=== PATIENT | female | born 1985 ===

== ENCOUNTER 2021-06-03 11:22 | Emergency (ER) | payer MEDICAID, SELFPAY ==
--- NOTE | ~2021-06-03 | US_ITS ---
EXAMINATION: US PELVIS CLINICAL INFORMATION: Left lower quadrant and left flank pain. Question ovarian torsion. COMPARISON: None TECHNIQUE: Ultrasound of the pelvis is performed using both transabdominal and transvaginal transducers along with Doppler. Transvaginal imaging is performed due to inadequate visualization transabdominally. FINDINGS: Uterus: The uterus is anteverted and measures 9.7 x 4.7 x 5.5 cm. The double wall endometrial thickness is 15 mm. The uterus is smooth in contour and has normal myometrial echogenicity. No visible fibroid. Adnexa: Both ovaries are visualized. There is normal color flow to the adnexa. There is no ovarian torsion. There is a small amount of free fluid present in the pelvis. Right ovary measures 3.7 x 3.5 x 3.9 cm. Volume of 26.4 mL. There is a heterogeneous complex lesion seen within the right ovary measuring approximately 3.0 x 2.6 x 3.6 cm in size which is well-circumscribed with small amount of adjacent fluid and has increased through sound transmission. Question if this may represent a hemorrhagic cyst/hematoma. Left ovary measures 4.2 x 2.3 x 3.3 cm. Volume of 16.7 mL. There is a 1.8 x 2.4 x 2.1 cm hypoechoic structure with some internal echoes and increased through sound transmission with the appearance of a corpus luteal cyst. US/US pelvic and transvaginal IMPRESSION: No evidence of ovarian torsion. Question hemorrhagic right ovarian cyst. Left ovarian corpus luteal cyst. Follow-up study in 6 weeks could be considered.
--- NOTE | ~2021-06-03 | US_ITS ---
EXAMINATION: US PELVIS CLINICAL INFORMATION: Left lower quadrant and left flank pain. Question ovarian torsion. COMPARISON: None TECHNIQUE: Ultrasound of the pelvis is performed using both transabdominal and transvaginal transducers along with Doppler. Transvaginal imaging is performed due to inadequate visualization transabdominally. FINDINGS: Uterus: The uterus is anteverted and measures 9.7 x 4.7 x 5.5 cm. The double wall endometrial thickness is 15 mm. The uterus is smooth in contour and has normal myometrial echogenicity. No visible fibroid. Adnexa: Both ovaries are visualized. There is normal color flow to the adnexa. There is no ovarian torsion. There is a small amount of free fluid present in the pelvis. Right ovary measures 3.7 x 3.5 x 3.9 cm. Volume of 26.4 mL. There is a heterogeneous complex lesion seen within the right ovary measuring approximately 3.0 x 2.6 x 3.6 cm in size which is well-circumscribed with small amount of adjacent fluid and has increased through sound transmission. Question if this may represent a hemorrhagic cyst/hematoma. Left ovary measures 4.2 x 2.3 x 3.3 cm. Volume of 16.7 mL. There is a 1.8 x 2.4 x 2.1 cm hypoechoic structure with some internal echoes and increased through sound transmission with the appearance of a corpus luteal cyst. US/US pelvic ovarian doppler IMPRESSION: No evidence of ovarian torsion. Question hemorrhagic right ovarian cyst. Left ovarian corpus luteal cyst. Follow-up study in 6 weeks could be considered.
--- NOTE | ~2021-06-03 | CT_ITS ---
EXAMINATION: CT ABDOMEN AND PELVIS WITH CONTRAST CLINICAL INFORMATION: Left flank pain. Left lower quadrant pain COMPARISON: Pelvic ultrasound 06/03/2021 TECHNIQUE: Multidetector volumetric images were obtained from the superior aspect of the liver through the pubic symphysis following administration 85 mL of Omnipaque 350 intravenous contrast. Sagittal and coronal reformatted images were obtained on the technologist's workstation. Oral contrast: No This CT examination was performed using dose optimization techniques as appropriate, variously including the following: *Automated exposure control *Adjustment of mA and/or kV according to patient size (this includes techniques or standardized protocols for targeted exams where dose is matched to indication/reason for exam; i.e. extremities or head) *Use of iterative reconstruction technique DLP: 802 mGy-cm FINDINGS: LUNG BASES: The visualized lung bases are unremarkable. LIVER, GALLBLADDER, AND BILIARY TREE: The liver is normal in size, shape, and attenuation. No focal hepatic lesion or biliary ductal dilatation is present. The gallbladder is unremarkable with no evidence of radiopaque gallstones, gallbladder wall thickening, or obvious pericholecystic inflammatory changes. PANCREAS: Unremarkable. SPLEEN: Unremarkable. ADRENAL GLANDS: Unremarkable. KIDNEYS AND URETERS: Left kidney: There is marked hydronephrosis of left kidney with distention renal pelvis calyces and the proximal ureter. There is an obstructing stone in the proximal left ureter. Stone measures 8 x 7 mm. Density 1415 Hounsfield units. There are 2 adjacent stones measuring 2 to 3 mm in the lower pole of left kidney as well. There is mild cortical thinning of left kidney. There is however normal enhancement of the kidney. Right kidney: Normal right kidney. Normal cortical thickness and enhancement. There is no renal or ureteral calculus. There is no hydronephrosis. BLADDER: Unremarkable. GASTROINTESTINAL TRACT: The small and large bowel are unremarkable. The appendix is unremarkable. ABDOMINAL WALL: No significant hernia is appreciated. LYMPH NODES: Normal. VASCULAR: Unremarkable. PELVIC VISCERA: Uterus is anteverted. There is a dermoid in the right ovary. This is primarily made of fat with a small volume of soft tissue component with no calcification. This measures 3 x 1.8 x 1.8 cm. This correlates to the complex lesion seen on the pelvic ultrasound exam 06/03/2021. The left ovary there is a rim-enhancing corpus luteum cyst measuring 2 cm. No fluid in the cul-de-sac. OSSEOUS STRUCTURES: Unremarkable. CT/CT abdomen pelvis w con IMPRESSION: 1. Marked hydronephrosis of left kidney. Obstructing 7 x 8 mm stone in the proximal left ureter. 2 small nonobstructive stones lower pole left kidney. 2. Right adnexal dermoid. Fleischner guidelines were followed.
[2021-06-03 11:26] VITALS: BP 129/67; PULSE 78; RESP 18; TEMP 37.1; O2SAT 98; BMI 28.3
[2021-06-03 12:30] LABS: Appearance Urine CLOUDY; Color Urine YELLOW; Glucose Urine UA NEG (NEG); Leukocyte Esterase Urine NEG (NEG); Nitrite Urine NEG (NEG); Specific Gravity - Urine 1.015 (1.005-1.025); UACC Culture Trigger NO; Urine Blood TRACE (NEG); Urine Ketones NEG (NEG); Urine Protein TRACE MG/DL (NEG-TRACE)
[2021-06-03 12:31] LABS: UPreg QC Valid YES; Urine Pregnancy NEGATIVE (NEGATIVE)
[2021-06-03 12:40] LABS: Amorphous Sediment Urine 4+ /LPF; Bacteria Urine TRACE /LPF; Squamous Epithelial Cell Urine TRACE /LPF
--- NOTE | 2021-06-03 12:57 | ED.ABDPAIN ---
HPI - Abdominal Pain General Chief Complaint: Urogenital-Female Stated Complaint: FLANK PAIN L SIDE Time Seen by Provider: 06/03/21 11:59 Source: patient and family Mode of arrival: ambulatory Limitations: no limitations History of Present Illness HPI narrative: 36-year-old female with a past medical history of right ovarian cyst presenting to the ED with complaints of left lower quadrant/left flank pain radiating to her left back over the past few months that has been intermittent worse today. She reports associated constipation. She reports last time she had a bowel movement was approximately 2 days. She reports that she was seen at [facility] a few months ago and had a transvaginal ultrasound which was within normal limits and they told her that she did not have any cyst at that time. Patient reports that she had her period approximately 2 weeks ago. She denies any fevers, chills, dizziness, headaches, neck pain/stiffness, trouble swallowing or breathing, sore throat, cough, rashes, dysuria, hematuria, abnormal vaginal discharge, thoughts of STDs, diarrhea or any other symptoms complaints or concerns at this time. She denies recent travel or sick contacts. MD elicited complaint: abdominal pain Pertinent past history: other (ovarian cyst) Onset (ago): month(s) Pain Consistency: intermittent Location: LLQ and L flank Severity: moderate Quality: cramping and aching Radiation: back (left sided) Relieving factors: nothing Associated symptoms: constipation Related Data Previous Rx's Medication Instructions Recorded ketorolac 10 mg tablet 10 mg PO Q8H PRN #14 tab 06/03/21 ondansetron 4 mg disintegrating 4 mg PO Q6H #14 tab 06/03/21 tablet oxycodone 5 mg tablet 5 mg PO Q6H PRN #14 tab 06/03/21 prednisone 20 mg tablet 40 mg PO DAILY 5 Days #10 tab 06/03/21 prednisone 20 mg tablet 40 mg PO DAILY 5 Days #10 tab 06/03/21 tamsulosin 0.4 mg capsule (Flomax) 0.4 mg PO DAILY 5 Days #5 cap 06/03/21 Allergies Allergy/AdvReac Type Severity Reaction Status Date / Time No Known Allergies Allergy Verified 06/03/21 12:00 Review of Systems Review of Systems Constitutional : No Fever, No Chills, No Night Sweats, No Fatigue, No Malaise Cardiovascular : No Chest Pain, No SOB Respiratory : No Cough, No Sputum, No Wheezing, No Dyspnea Gastrointestinal : No Nausea, No Vomiting, No Diarrhea, + abdominal Pain, No Hematochezia, No Melena Genitourinary : No irregular bleeding, No Dysuria, No Urinary Frequency, No Hematuria,No Urinary Incontinence, No Urgency, No Flank Pain Musculoskeletal : No joint pain, No Myalgias, No Joint Swelling Skin : No Skin Lesions, No rash Neuro : No Weakness, No Numbness, No Paresthesias, No Loss of Consciousness, No Dizziness, No Headache Heme/Lymph: No Lymphadenopathy Endocrine : No Temperature Intolerance Yes all other systems are reviewed and are negative [facility] Past Medical History Attestation statement: The following information was validated with the patient. Medical History Hernandez's palsy Social History Social History Advance Directives: No Advance Directives Information Provided: Yes Patient : No Physical Exam ED Vital Signs: Vital Signs - 24 hr 06/03/21 11:26 06/03/21 15:04 Temperature 98.7 F Pulse Rate 78 69 Respiratory Rate 18 18 Blood Pressure 129/67 104/53 L Pulse Oximetry 98 100 BMI result Body Mass Index 28.3 Vital signs have been reviewed and all within normal limits Appearance: Alert. Oriented X3. No acute distress. Head: Normal external exam. Normocephalic. Eyes: PERRLA. EOMI. Conjunctiva and sclera normal. Eyelids normal. ENT: Pharynx normal. Uvula midline. Moist mucous membranes. No trismus noted. No drooling noted. No muffled voice noted. Neck: Normal inspection. Neck supple. FROM. No adenopathy. No meningeal signs. CVS: Normal heart rate and rhythm. Heart sound normal. No murmurs noted. Pulses normal throughout. Respiratory: No respiratory distress. Painless inspiration. Breath sounds normal. No wheezes/rales/rhonchi noted. Chest nontender. No accessory muscle usage noted or decreased air movement noted. Abdomen: Soft moderate tenderness palpation to the left lower quadrant/left flank/left lower back. With guarding. Nondistended. No rigidity. Bowel sounds normal in all 4 quadrants. No distention noted. No organomegaly noted. No visible injury noted. No rebound tenderness. Negative Rovsing sign. Negative obturator's sign. Negative psoas sign. Negative Clark sign. Back: No CVA tenderness. Full range of motion noted. Skin: Skin warm and dry. Normal skin color. Normal skin turgor. No rashes/lesions/lacerations noted. Extremities: Extremities exhibit normal range of motion. Extremities nontender. Neuro: Oriented X 3. No motor deficit. No sensory deficit. Reflexes normal. Normal steady gait. CN's II-XII intact bilaterally? Course Course Course Narrative: 12pm - 36-year-old female with a past medical history of right ovarian cyst presenting to the ED with complaints of left lower quadrant/left flank pain radiating to her left back over the past few months that has been intermittent worse today. She reports associated constipation. She reports last time she had a bowel movement was approximately 2 days. She reports that she was seen at [facility] a few months ago and had a transvaginal ultrasound which was within normal limits and they told her that she did not have any cyst at that time. Patient reports that she had her period approximately 2 weeks ago. Plan: Labs, UA, UHCG, CT scan abdomen and pelvis, transvaginal/pelvic ultrasound. Provide a L of IV fluids with 4 mg of Zofran and 30 mg of IV Toradol then re-evaluate. Reevaluation(s) Reevaluation #1: - labs return patient mild anemia with an H&H of 11.4/36.4. Otherwise all other labs are within normal limits. UA within normal limits no evidence of UTI. UHCG negative for . Patient negative for COVID. - pelvic/transvaginal ultrasound was negative for ovarian torsion although questioning hemorrhagic right ovarian cyst and left ovarian corpus luteal cyst. They recommend follow-up study in 6 weeks. Otherwise no other acute processes were noted - CT scan of abdomen and pelvis with IV contrast revealed a 8 mm stone at the proximal left ureter and 2 small obstructing stones and the lower pole of the left kidney and marked hydronephrosis of the left kidney. She also has a right adnexa dermoid otherwise no other acute processes were noted. - therefore I discussed this case with Dr. Mata and Dr. De La Torre screener and blender operator and the urologist and Dr. Mata E reports that the patient can follow-up with him as an outpatient basis. Nothing to do at this time for the ovarian cyst. And Dr. De La Torre the urologist recommended discharging the patient with pain control if her pain is controlled. Therefore I discussed this with the patient she reports her pain is controlled she has not had any nausea vomiting today was last night therefore will DC home with symptomatic treatment and instructions to follow-up with Dr. Wagner to call him on Saturday and to return if any new or worsening symptoms. Patient's significant other understand and agrees with this plan. Time: 15:31 MDM - Abdominal Pain Medical Records Attestation: I reviewed the patient's medical records. Lab Data Attestation: I reviewed the patient's lab results. Result diagrams: 06/03/21 13:47 06/03/21 13:47 Labs: Lab Results 06/03/21 06/03/21 06/03/21 Range/Units 12:13 12:13 13:47 WBC 7.7 (4.8-10.8) X10*3/uL RBC 4.32 (4.20-5.50) X10*6/uL Hgb 11.4 L (12.0-16.0) g/dl Hct 36.4 L (37.0-47.0) % MCV 84.3 (80.0-98.0) fL MCH 26.4 L (27.0-33.0) pg MCHC 31.3 (31.0-35.0) g/dl RDW 15.1 (11.0-16.0) % Plt Count 283 (160-400) X10*3/uL MPV 10.7 (9.4-12.3) fL Immature Gran % (Auto) 0.1 (0.0-0.4) % Neut % (Auto) 45.9 (45-73) % Lymph % (Auto) 35.4 (20-40) % [place] % (Auto) 8.8 (2-11) % Eos % (Auto) 9.2 H (0-4) % Baso % (Auto) 0.6 (0-2) % Lymph # (Auto) 2.7 (1.2-4.9) X10*3/uL [place] # (Auto) 0.7 (0.1-1.2) X10*3/uL Eos # (Auto) 0.7 H (0.0-0.4) X10*3/uL Baso # (Auto) 0.1 (0.0-0.2) X10*3/uL Abs Immat Gran (auto) 0.01 (0.00-0.03) X10*3/uL Absolute Neuts (auto) 3.5 (2.0-8.3) x10*3/uL Absolute Nucleated RBC 0.000 (0.0-0.012) X10*3/uL Nucleated RBC % (auto) 0.0 (0.0-0.2) /100WBC PT (9.9-13.0) SEC INR (0.9-1.1) Sodium (135-145) mmol/L Potassium (3.3-5.1) mmol/L Chloride (96-108) mmol/L Carbon Dioxide (22-29) mmol/L Anion Gap (12-20) BUN (9-16) mg/dL Creatinine (0.5-1.4) mg/dL Estim Creat Clear Calc Estimated GFR Random Glucose (60-115) mg/dL Calcium (8.4-10.2) mg/dL Magnesium (1.6-2.6) mg/dL Total Bilirubin (0.0-1.0) mg/dL AST (5-31) U/L ALT (0-31) U/L Alkaline Phosphatase (39-117) U/L Total Protein (6.5-8.0) g/dL Albumin (3.5-5.0) g/dL Beta HCG, Quant mIU/mL Urine Color YELLOW Urine Appearance CLOUDY Urine pH 7.0 (5.0-8.0) Ur Specific [place] 1.015 (1.005-1.025) Urine Protein TRACE (NEG-TRACE) MG/DL Urine Glucose (UA) NEG (NEG) MG/DL Urine Ketones NEG (NEG) MG/DL Urine Blood TRACE (NEG) Urine Nitrite NEG (NEG) Ur Leukocyte Esterase NEG (NEG) Urine RBC 1-4 (0) /HPF Urine WBC 1-4 (0-4) /HPF Ur Squamous Epith Cells TRACE /LPF Amorphous Sediment 4+ /LPF Urine Bacteria TRACE /LPF Urine Test NEGATIVE (NEGATIVE) COVID-19 (ANNETTE) (Negative) COVID-19 Clin Com 06/03/21 06/03/21 06/03/21 Range/Units 13:47 13:47 13:47 WBC (4.8-10.8) X10*3/uL RBC (4.20-5.50) X10*6/uL Hgb (12.0-16.0) g/dl Hct (37.0-47.0) % MCV (80.0-98.0) fL MCH (27.0-33.0) pg MCHC (31.0-35.0) g/dl RDW (11.0-16.0) % Plt Count (160-400) X10*3/uL MPV (9.4-12.3) fL Immature Gran % (Auto) (0.0-0.4) % Neut % (Auto) (45-73) % Lymph % (Auto) (20-40) % [place] % (Auto) (2-11) % Eos % (Auto) (0-4) % Baso % (Auto) (0-2) % Lymph # (Auto) (1.2-4.9) X10*3/uL [place] # (Auto) (0.1-1.2) X10*3/uL Eos # (Auto) (0.0-0.4) X10*3/uL Baso # (Auto) (0.0-0.2) X10*3/uL Abs Immat Gran (auto) (0.00-0.03) X10*3/uL Absolute Neuts (auto) (2.0-8.3) x10*3/uL Absolute Nucleated RBC (0.0-0.012) X10*3/uL Nucleated RBC % (auto) (0.0-0.2) /100WBC PT 12.9 (9.9-13.0) SEC INR 1.1 (0.9-1.1) Sodium 140 (135-145) mmol/L Potassium 4.2 (3.3-5.1) mmol/L Chloride 107 (96-108) mmol/L Carbon Dioxide 25 (22-29) mmol/L Anion Gap 12 (12-20) BUN 14 (9-16) mg/dL Creatinine 0.81 (0.5-1.4) mg/dL Estim Creat Clear Calc 92.5 Estimated GFR > 60 Random Glucose 90 (60-115) mg/dL Calcium 9.1 (8.4-10.2) mg/dL Magnesium 1.9 (1.6-2.6) mg/dL Total Bilirubin 0.5 (0.0-1.0) mg/dL AST 18 (5-31) U/L ALT 16 (0-31) U/L Alkaline Phosphatase 91 (39-117) U/L Total Protein 6.7 (6.5-8.0) g/dL Albumin 3.8 (3.5-5.0) g/dL Beta HCG, Quant < 2 mIU/mL Urine Color Urine Appearance Urine pH (5.0-8.0) Ur Specific [place] (1.005-1.025) Urine Protein (NEG-TRACE) MG/DL Urine Glucose (UA) (NEG) MG/DL Urine Ketones (NEG) MG/DL Urine Blood (NEG) Urine Nitrite (NEG) Ur Leukocyte Esterase (NEG) Urine RBC (0) /HPF Urine WBC (0-4) /HPF Ur Squamous Epith Cells /LPF Amorphous Sediment /LPF Urine Bacteria /LPF Urine Test (NEGATIVE) COVID-19 (ANNETTE) Negative (Negative) COVID-19 Clin Com See Note Imaging Data CT scan abdomen pelvis with IV contrast: Attestation: I personally reviewed and interpreted this imaging study as follows: Radiologist's impression: FINDINGS: LUNG BASES: The visualized lung bases are unremarkable.? LIVER, GALLBLADDER, AND BILIARY TREE: The liver is normal in size, shape, and attenuation. No focal hepatic lesion or biliary ductal dilatation is present. The gallbladder is unremarkable with no evidence of radiopaque gallstones, gallbladder wall thickening, or obvious pericholecystic inflammatory changes.? PANCREAS: Unremarkable.? SPLEEN: Unremarkable.? ADRENAL GLANDS: Unremarkable.? KIDNEYS AND URETERS: Left kidney: There is marked hydronephrosis of left kidney with distention renal pelvis calyces and the proximal ureter. There is an obstructing stone in the proximal left ureter. Stone measures 8 x 7 mm. Density 1415 Hounsfield units. There are 2 adjacent stones measuring 2 to 3 mm in the lower pole of left kidney as well. There is mild cortical thinning of left kidney. There is however normal enhancement of the kidney. Right kidney: Normal right kidney. Normal cortical thickness and enhancement. There is no renal or ureteral calculus. There is no hydronephrosis. BLADDER: Unremarkable.? GASTROINTESTINAL TRACT: The small and large bowel are unremarkable. The appendix is unremarkable.? ABDOMINAL WALL: No significant hernia is appreciated.? LYMPH NODES: Normal. VASCULAR: Unremarkable. PELVIC VISCERA: Uterus is anteverted. There is a dermoid in the right ovary. This is primarily made of fat with a small volume of soft tissue component with no calcification. This measures 3 x 1.8 x 1.8 cm. This correlates to the complex lesion seen on the pelvic ultrasound exam 06/03/2021. The left ovary there is a rim-enhancing corpus luteum cyst measuring 2 cm. No fluid in the cul-de-sac. OSSEOUS STRUCTURES: Unremarkable.? CT/CT abdomen pelvis w con IMPRESSION: ? 1. Marked hydronephrosis of left kidney. Obstructing 7 x 8 mm stone in the proximal left ureter. 2 small nonobstructive stones lower pole left kidney. 2. Right adnexal dermoid. ? Fleischner guidelines were followed. Transvaginal/pelvic ultrasound: Attestation: I personally reviewed and interpreted this imaging study as follows: Radiologist's impression: FINDINGS: Uterus: The uterus is anteverted and measures 9.7 x 4.7 x 5.5 cm. The double wall endometrial thickness is 15 mm.? The uterus is smooth in contour and has normal myometrial echogenicity. ? No visible fibroid. Adnexa: Both ovaries are visualized. There is normal color flow to the adnexa. There is no ovarian torsion.? There is a small amount of free fluid present in the pelvis. Right ovary measures 3.7 x 3.5 x 3.9 cm. Volume of 26.4 mL. There is a heterogeneous complex lesion seen within the right ovary measuring approximately 3.0 x 2.6 x 3.6 cm in size which is well-circumscribed with small amount of adjacent fluid and has increased through sound transmission. Question if this may represent a hemorrhagic cyst/hematoma. Left ovary measures 4.2 x 2.3 x 3.3 cm. Volume of 16.7 mL. There is a 1.8 x 2.4 x 2.1 cm hypoechoic structure with some internal echoes and increased through sound transmission with the appearance of a corpus luteal cyst. US/US pelvic and transvaginal IMPRESSION: No evidence of ovarian torsion. ? Question hemorrhagic right ovarian cyst. ? Left ovarian corpus luteal cyst. ? Follow-up study in 6 weeks could be considered. Critical Care Time Critical Care Time Critical Care Time: Yes Total Critical Care Time: 60 Attestation: I personally attest to this time spent taking care of the patient Discharge Plan Discharge Clinical Impression: Hemorrhagic cyst of right ovary, Luteal cystic ovary disease, Ureterolithiasis, Hydronephrosis Patient Disposition: Home, Self-Care Instructions: Ovarian Cyst (ED), Hydronephrosis (ED), Ureteral Stones (ED), Ruptured Ovarian Cyst (ED) Prescriptions: New ketorolac 10 mg tablet 10 mg PO Q8H PRN (Reason: pain) Qty: 14 0RF Rx Instructions: Given 1st dose in the ED ondansetron 4 mg tablet,disintegrating 4 mg PO Q6H Qty: 14 0RF prednisone 20 mg tablet 40 mg PO DAILY 5 Days Qty: 10 0RF oxycodone 5 mg tablet 5 mg PO Q6H PRN (Reason: pain) Qty: 14 0RF tamsulosin [Flomax] 0.4 mg capsule 0.4 mg PO DAILY 5 Days Qty: 5 0RF prednisone 20 mg tablet 40 mg PO DAILY 5 Days Qty: 10 0RF Referrals: Yonis Wagner MD [Physician] - 2 days Keisha Fairbanks RN [Emergency Nurse] - 2 days Stevie Mata MD [Physician] - 2 days Stand Alone Forms: Work/School Release Print Language: Malagasy
[2021-06-03] MEDS: ondansetron HCL 4 MG/2 ML VIAL IVPUSH (13:40)
[2021-06-03] MEDS: Ketorolac Tromethamine 30 MG/ML VIAL IVPUSH (13:40)
[2021-06-03] MEDS: 0.9 % Sodium Chloride 1,000 ML 999 ML IVCONT (13:40)
[2021-06-03 13:53] LABS: Basophils Absolute Auto 0.1 X10*3/uL (0.0-0.2); Basophils Percent Auto 0.6 % (0-2); Eosinophils Absolute Auto 0.7 X10*3/uL (0.0-0.4); Eosinophils Percent Auto 9.2 % (0-4); Hematocrit 36.4 % (37.0-47.0); Hemoglobin 11.4 g/dl (12.0-16.0); Imm Gran Abs Auto 0.01 X10*3/uL (0.00-0.03); Imm Gran Pct Auto 0.1 % (0.0-0.4); Lymphocytes Absolute Auto 2.7 X10*3/uL (1.2-4.9); Lymphocytes Percent Auto 35.4 % (20-40); MANUAL DIFF FLAG NO; Mean Corpuscular HGB Conc 31.3 g/dl (31.0-35.0); Mean Corpuscular Hemoglobin 26.4 pg (27.0-33.0); Mean Corpuscular Volume 84.3 fL (80.0-98.0); Mean Platelet Volume 10.7 fL (9.4-12.3); Monocytes Absolute Auto 0.7 X10*3/uL (0.1-1.2); Monocytes Percent Auto 8.8 % (2-11); Neutrophils Absolute Auto 3.5 x10*3/uL (2.0-8.3); Neutrophils Percent Auto 45.9 % (45-73); Platelet Count 283 X10*3/uL (160-400); Red Blood Count 4.32 X10*6/uL (4.20-5.50); Red Cell Distribution Width 15.1 % (11.0-16.0); White Blood Count 7.7 X10*3/uL (4.8-10.8)
[2021-06-03 13:58] LABS: INTERNATIONAL NORM RATIO 1.1 (0.9-1.1); Prothrombin Time 12.9 SEC (9.9-13.0)
[2021-06-03 14:07] LABS: COVID-19 Test Negative (Negative); IDNOW Serial# 16C4AD1C
[2021-06-03 14:08] LABS: Alanine Aminotransferase 16 U/L (0-31); Albumin Level 3.8 g/dL (3.5-5.0); Alkaline Phosphatase 91 U/L (39-117); Anion Gap 12 (12-20); Aspartate Amino Transferase 18 U/L (5-31); Bilirubin Total 0.5 mg/dL (0.0-1.0); Blood Urea Nitrogen 14 mg/dL (9-16); Calcium 9.1 mg/dL (8.4-10.2); Carbon Dioxide 25 mmol/L (22-29); Chloride 107 mmol/L (96-108); Creatinine Clr Calc Pharmacy 92.5; Estimated Glomerular Filt Rate > 60; Glucose Random 90 mg/dL (60-115); Magnesium 1.9 mg/dL (1.6-2.6); Potassium 4.2 mmol/L (3.3-5.1); Sodium 140 mmol/L (135-145); Total Protein 6.7 g/dL (6.5-8.0)
[2021-06-03 14:15] LABS: HCG Quantitative < 2 mIU/mL
[2021-06-03] MEDS: iohexoL 350 MG/ML 100 ML INFUS..BTL IV (14:46)
[2021-06-03 15:04] VITALS: BP 104/53; PULSE 69; RESP 18; O2SAT 100
--- NOTE | 2021-06-03 15:32 | PM.GYNCN ---
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 The patient states that she was seen at [facility] a few months ago and had a pelvic ultrasound which was within normal, according to her. Patient's LMP was 2 weeks ago.? No history of fevers, chills, or any other complaints. No associated GI or symptoms no vaginal discharge or abnormal uterine bleeding. Pap done emergency room included CBC, chemistry, urine test, was all negative pelvic ultrasound showed a right 3 cm complex ovarian cyst suspicious of hemorrhagic cyst and left corpus luteum cyst. CT scan of abdomen and pelvis with IV contrast revealed a 8 mm stone at the proximal left ureter and 2 small obstructing stones and the lower pole of the left kidney and marked hydronephrosis of the left kidney.? She also has a right adnexa dermoid otherwise no other acute processes were noted. 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 - Review of Systems Review of Systems ROS Unobtainable: All systems reviewed & are unremarkable except as noted in HPI and below Cardiovascular: Denies Palpatations, Loss of consciousness or Chest pain Respiratory: Denies Cough, Wheezing or Shortness of breath Musculoskeletal: Denies Low back pain Gastrointestinal: Denies Heartburn, Constipation, Diarrhea, Nausea or Vomiting Genitourinary: Denies Pain with urination, Burning with urination or Urinary frequency Neurological: Denies Migranes Psychological: Denies Depression [facility] Past Medical History Medical History Hernandez's palsy Social History Social History Advance Directives: No Advance Directives Information Provided: Yes Patient : No Meds Allergies Allergy/AdvReac Type Severity Reaction Status Date / Time No Known Allergies Allergy Verified 06/03/21 12:00 JAVA J[employer]EE APPLICATION DEVELOPER Physical Exam Vitals Vital signs: Temp Pulse Resp BP Pulse Ox 98.7 F 69 18 104/53 L 100 06/03/21 11:26 06/03/21 15:04 06/03/21 15:04 06/03/21 15:04 06/03/21 15:04 BMI result Body Mass Index 28.3 Constitutional General Appearance: Healthy appearing, Well-nourished and Well-developed Psychiatric Mood and Affect: active and alert, normal mood and normal affect Skin Appearance: No rashes and No lesions Lungs Respiratory Effort: No intercostal retractions Auscultation: Clear to auscultation Cardiovascular Auscultation: RRR Female Genitalia (Pelvic) Exam: Deferred Additional Comments: Reported by ASTRID Cordoba in the emergency room to be benign JAVA J[employer]EE APPLICATION DEVELOPER - Results Labs CBC & Chem 7: 06/03/21 13:47 06/03/21 13:47 Labs: Short CBC 06/03/21 Range/Units 13:47 WBC 7.7 (4.8-10.8) X10*3/uL Hgb 11.4 L (12.0-16.0) g/dl Hct 36.4 L (37.0-47.0) % Plt Count 283 (160-400) X10*3/uL BMP 06/03/21 13:47 Sodium 140 Potassium 4.2 Chloride 107 Carbon Dioxide 25 BUN 14 Creatinine 0.81 Calcium 9.1 Liver Function 06/03/21 Range/Units 13:47 Total Bilirubin 0.5 (0.0-1.0) mg/dL AST 18 (5-31) U/L ALT 16 (0-31) U/L Alkaline Phosphatase 91 (39-117) U/L Albumin 3.8 (3.5-5.0) g/dL Urine 06/03/21 06/03/21 Range/Units 12:13 12:13 Urine Color YELLOW Urine Appearance CLOUDY Urine pH 7.0 (5.0-8.0) Ur Specific [place] 1.015 (1.005-1.025) Urine Protein TRACE (NEG-TRACE) MG/DL Urine Glucose (UA) NEG (NEG) MG/DL Urine Test NEGATIVE (NEGATIVE) Imaging CT scan - pelvis: Radiologist's impression: ITS Impressions Doppler Study Ultrasound 06/03/21 12:53 IMPRESSION: No evidence of ovarian torsion. Question hemorrhagic right ovarian cyst. Left ovarian corpus luteal cyst. Follow-up study in 6 weeks could be considered. Pelvic/Transvag US 06/03/21 12:53 IMPRESSION: No evidence of ovarian torsion. Question hemorrhagic right ovarian cyst. Left ovarian corpus luteal cyst. Follow-up study in 6 weeks could be considered. Abdomen/Pelvis CT 06/03/21 14:48 IMPRESSION: 1. Marked hydronephrosis of left kidney. Obstructing 7 x 8 mm stone in the proximal left ureter. 2 small nonobstructive stones lower pole left kidney. 2. Right adnexal dermoid. Fleischner guidelines were followed. Assessment and Plan (1) Hemorrhagic cyst of right ovary: Status: Acute By ultrasound, there is evidence of right hemorrhagic cyst, by CT scan, there is a right dermoid cyst, I recommended the following: the patient is to follow-up as an outpatient with her systems applications programming lead office Instructions to be given to the patient to call or come back to the emergency in case of recurrence or worsening of her pain nausea and vomiting, fever above 100.4. (2) Ureterolithiasis: Status: Acute With hydronephrosis, The patient is to to be managed per urology recommendation
[2021-06-03] MEDS: oxyCODONE HCl Immed Release 5 MG TABLET PO (15:51)
[2021-06-03] MEDS: dexAMETHasone sod phosphate 10 MG/ML VIAL IVPUSH (15:51)
[2021-06-03] MEDS: Tamsulosin HCL 0.4 MG CAPSULE PO (15:51)
== END 2021-06-03 16:13 | disposition home or self-care (01) ==
PROVIDERS: Physician Assistant Medical; Emergency Provider Emergency Medicine Emergency Medical Services
DX: N83.201 Unspecified ovarian cyst, right side (principal); N83.12 Corpus luteum cyst of left ovary; N13.2 Hydronephrosis with renal and ureteral calculous obstruction
CPT/HCPCS: 36415; 74177; 76830; 76856; 80053; 81001; 81025; 83735; 84702; 85025; 85610; 87635; 93975; 96361; 96374; 96375; 99284; 99291; J1100; J1885; J2405; Q9967

== ENCOUNTER 2021-06-05 09:37 | Inpatient (IN) | payer MEDICAID, SELFPAY ==
[2021-06-05] VITALS (7 sets, daily range): BP systolic 96–128; BP diastolic 43–75; PULSE 52–68; RESP 16–17; TEMP 36.7–36.8; O2SAT 98–100; BMI 30.1
--- NOTE | ~2021-06-05 | CT_ITS ---
EXAMINATION: CT ABDOMEN AND PELVIS WITHOUT CONTRAST CLINICAL INFORMATION: Left flank pain COMPARISON: CT abdomen pelvis 06/03/2021 TECHNIQUE: Multidetector volumetric imaging was performed from the superior aspect of the liver through the pubic symphysis. Sagittal and coronal reformatted images were obtained on the technologist's workstation. This CT examination was performed using dose optimization techniques as appropriate, variously including the following: *Automated exposure control *Adjustment of mA and/or kV according to patient size (this includes techniques or standardized protocols for targeted exams where dose is matched to indication/reason for exam; i.e. extremities or head) *Use of iterative reconstruction technique DLP: 778 mGy-cm FINDINGS: Visualized lung bases demonstrate minimal dependent atelectasis. The liver demonstrates normal size, contour and attenuation. The gallbladder is normal in appearance. The pancreas, spleen and adrenal glands are unremarkable. Similar moderate to severe hydronephrosis of the left kidney. Unchanged positioning of 8 mm calculus within the proximal left ureter. A smaller nonobstructing stone within the lower pole of the left kidney is also again noted. No right-sided renal calculi or right-sided hydronephrosis appreciated. Normal caliber loops of small bowel. Mild to moderate colonic stool burden. Small fat-containing umbilical hernia. Normal caliber abdominal aorta. No gross retroperitoneal lymphadenopathy. The bladder is well-distended and normal in appearance. Unremarkable CT appearance of the uterus. Right adnexal dermoid again noted. No gross free pelvic fluid. No inguinal lymphadenopathy. No acute osseous abnormality. CT/CT abdomen pelvis wo con IMPRESSION: Moderate to severe hydronephrosis of the left kidney is again noted secondary to an 8 mm calculus within the proximal left ureter. Calculus demonstrates no appreciable change in positioning from imaging 2 days ago. Fleischner guidelines were followed.
--- NOTE | ~2021-06-05 | FL_ITS ---
EXAMINATION: XR FLUOROSCOPY WITH IMAGES CLINICAL INFORMATION: left stone removal with stent placement; Dr. Wagner COMPARISON: CT dated 06/05/2021 TECHNIQUE: Fluoroscopy performed by Dr. Yonis Wagner. Fluoroscopy time: 0.9 minutes DAP: 6.4 mGycm2 Images: 2 FL/FL guidance in OR FINDINGS/IMPRESSION: Initial image demonstrates contrast material within the left proximal ureter and renal collecting system with a obstructing calculus near the UPJ. The distal coil of the left ureteral stent is evident in the bladder on the second image.
[2021-06-05] MEDS: Ondansetron ODT 4 MG TAB.RAPDIS TRANSLINGU (12:29)
[2021-06-05] MEDS: Acetaminophen 325 MG TABLET 975 MG PO (12:29)
--- NOTE | 2021-06-05 13:39 | ED_ITS ---
HPI - Abdominal Pain General Chief Complaint: Abdominal Pain Stated Complaint: Kidney stone Time Seen by Provider: 06/05/21 13:29 Source: patient and old records reviewed History of Present Illness HPI narrative: Patient with several months worth of intermittent left flank pain. Several days ago it became severe and constant. She was diagnosed in this emergency department 2 days ago with a large kidney stone. 7 x 8 mm in the left proximal ureter with hydronephrosis. She went home on pain medications but is still having intractable pain. She called her Urology office for follow-up and they recommended she return to the emergency department to expedite treatment as this will likely require intervention. Patient complains of nausea and occasional vomiting. No diarrhea or constipation No dysuria No prior history of kidney stones. No change of pain by position. Pain is 12/25 Related Data Previous Rx's Medication Instructions Recorded ketorolac 10 mg tablet 10 mg PO Q8H PRN #14 tab 06/03/21 ondansetron 4 mg disintegrating 4 mg PO Q6H #14 tab 06/03/21 tablet oxycodone 5 mg capsule 5 mg PO Q8H PRN #8 cap 06/03/21 prednisone 20 mg tablet 40 mg PO DAILY 5 Days #10 tab 06/03/21 prednisone 20 mg tablet 40 mg PO DAILY 5 Days #10 tab 06/03/21 tamsulosin 0.4 mg capsule (Flomax) 0.4 mg PO DAILY 5 Days #5 cap 06/03/21 Allergies Allergy/AdvReac Type Severity Reaction Status Date / Time No Known Allergies Allergy Verified 06/03/21 12:00 Review of Systems Comments: No fevers or chills Comments: No chest pain Comments: No cough or dyspnea Comments: Left lower abdominal pain radiating to left flank as noted Comments: No dysuria Comments: No midline back pain. No pain radiating to her legs Comments: No rash Comments: No focal weakness PMFSH Past Medical History Medical History Hernandez's palsy Social History Social History Advance Directives: No Advance Directives Information Provided: No Patient : No Physical Exam ED Vital Signs: Vital Signs - 24 hr 06/05/21 10:52 06/05/21 14:55 06/05/21 15:35 Temperature 98.1 F Pulse Rate 60 58 Respiratory Rate 16 16 16 Blood Pressure 128/60 96/43 L Pulse Oximetry 98 98 06/05/21 17:29 Temperature Pulse Rate 53 Respiratory Rate 17 Blood Pressure 112/70 Pulse Oximetry 100 BMI result Body Mass Index 30.1 Const Other: Patient is awake alert and oriented. She appears in significant amount of discomfort. She is standing during the exam and states she is unable to get comfortable. Neck Other: Normal Resp Other: Normal Cardio Other: Normal GI Other: Mild left lower abdominal tenderness. Positive left flank tenderness to percussion Skin Other: Warm and dry. No rash Neuro Other: No obvious focal neuro deficit Course Course Course Narrative: Kidney stone Postobstructive pyelonephritis Review of old records confirms large obstructing 7 x 8 mm stone in the left proximal ureter. 18:28. Urinalysis shows no significant leukocytosis. CT scan official reading confirms no change in 8 mm proximal ureteral stone with significant hydronephrosis. Will send text to Urology. Anticipate hospitalization 183. Dr. Yonis Wagner is aware. Recommends NPO after midnight. MDM - Abdominal Pain Lab Data Result diagrams: 06/05/21 14:30 06/05/21 14:30 Labs: Lab Results 06/05/21 06/05/21 06/05/21 Range/Units 14:10 14:30 14:30 WBC 15.7 H (4.8-10.8) X10*3/uL RBC 4.25 (4.20-5.50) X10*6/uL Hgb 11.3 L (12.0-16.0) g/dl Hct 35.4 L (37.0-47.0) % MCV 83.3 (80.0-98.0) fL MCH 26.6 L (27.0-33.0) pg MCHC 31.9 (31.0-35.0) g/dl RDW 15.4 (11.0-16.0) % Plt Count 315 (160-400) X10*3/uL MPV 10.7 (9.4-12.3) fL Immature Gran % (Auto) 0.4 (0.0-0.4) % Neut % (Auto) 62.1 (45-73) % Lymph % (Auto) 29.1 (20-40) % [place] % (Auto) 6.8 (2-11) % Eos % (Auto) 1.0 (0-4) % Baso % (Auto) 0.6 (0-2) % Lymph # (Auto) 4.6 (1.2-4.9) X10*3/uL [place] # (Auto) 1.1 (0.1-1.2) X10*3/uL Eos # (Auto) 0.2 (0.0-0.4) X10*3/uL Baso # (Auto) 0.1 (0.0-0.2) X10*3/uL Abs Immat Gran (auto) 0.07 H (0.00-0.03) X10*3/uL Absolute Neuts (auto) 9.7 H (2.0-8.3) x10*3/uL Absolute Nucleated RBC 0.000 (0.0-0.012) X10*3/uL Nucleated RBC % (auto) 0.0 (0.0-0.2) /100WBC Sodium 139 (135-145) mmol/L Potassium 4.3 (3.3-5.1) mmol/L Chloride 106 (96-108) mmol/L Carbon Dioxide 22 (22-29) mmol/L Anion Gap 15 (12-20) BUN 17 H (9-16) mg/dL Creatinine 0.80 (0.5-1.4) mg/dL Estim Creat Clear Calc 96.5 Estimated GFR > 60 Random Glucose 89 (60-115) mg/dL Calcium 9.3 (8.4-10.2) mg/dL Total Bilirubin 0.4 (0.0-1.0) mg/dL AST 18 (5-31) U/L ALT 16 (0-31) U/L Alkaline Phosphatase 84 (39-117) U/L Total Protein 7.0 (6.5-8.0) g/dL Albumin 3.9 (3.5-5.0) g/dL Beta HCG, Quant < 2 mIU/mL Urine Color Urine Appearance Urine pH (5.0-8.0) Ur Specific [place] (1.005-1.025) Urine Protein (NEG-TRACE) MG/DL Urine Glucose (UA) (NEG) MG/DL Urine Ketones (NEG) MG/DL Urine Blood (NEG) Urine Nitrite (NEG) Ur Leukocyte Esterase (NEG) Urine RBC (0) /HPF Urine WBC (0-4) /HPF Ur Squamous Epith Cells /LPF Urine Bacteria /LPF Urine Mucus /LPF Urine Test (NEGATIVE) COVID-19 (ANNETTE) Negative (Negative) COVID-19 Clin Com See Note 06/05/21 06/05/21 Range/Units 17:29 17:29 WBC (4.8-10.8) X10*3/uL RBC (4.20-5.50) X10*6/uL Hgb (12.0-16.0) g/dl Hct (37.0-47.0) % MCV (80.0-98.0) fL MCH (27.0-33.0) pg MCHC (31.0-35.0) g/dl RDW (11.0-16.0) % Plt Count (160-400) X10*3/uL MPV (9.4-12.3) fL Immature Gran % (Auto) (0.0-0.4) % Neut % (Auto) (45-73) % Lymph % (Auto) (20-40) % [place] % (Auto) (2-11) % Eos % (Auto) (0-4) % Baso % (Auto) (0-2) % Lymph # (Auto) (1.2-4.9) X10*3/uL [place] # (Auto) (0.1-1.2) X10*3/uL Eos # (Auto) (0.0-0.4) X10*3/uL Baso # (Auto) (0.0-0.2) X10*3/uL Abs Immat Gran (auto) (0.00-0.03) X10*3/uL Absolute Neuts (auto) (2.0-8.3) x10*3/uL Absolute Nucleated RBC (0.0-0.012) X10*3/uL Nucleated RBC % (auto) (0.0-0.2) /100WBC Sodium (135-145) mmol/L Potassium (3.3-5.1) mmol/L Chloride (96-108) mmol/L Carbon Dioxide (22-29) mmol/L Anion Gap (12-20) BUN (9-16) mg/dL Creatinine (0.5-1.4) mg/dL Estim Creat Clear Calc Estimated GFR Random Glucose (60-115) mg/dL Calcium (8.4-10.2) mg/dL Total Bilirubin (0.0-1.0) mg/dL AST (5-31) U/L ALT (0-31) U/L Alkaline Phosphatase (39-117) U/L Total Protein (6.5-8.0) g/dL Albumin (3.5-5.0) g/dL Beta HCG, Quant mIU/mL Urine Color YELLOW Urine Appearance HAZY Urine pH 6.0 (5.0-8.0) Ur Specific [place] 1.025 (1.005-1.025) Urine Protein NEG (NEG-TRACE) MG/DL Urine Glucose (UA) NEG (NEG) MG/DL Urine Ketones NEG (NEG) MG/DL Urine Blood 1+ H (NEG) Urine Nitrite NEG (NEG) Ur Leukocyte Esterase NEG (NEG) Urine RBC 5-9 H (0) /HPF Urine WBC 0-2 (0-4) /HPF Ur Squamous Epith Cells 3+ /LPF Urine Bacteria 1+ /LPF Urine Mucus 4+ /LPF Urine Test NEGATIVE (NEGATIVE) COVID-19 (ANNETTE) (Negative) COVID-19 Clin Com
[2021-06-05] MEDS: 0.9 % Sodium Chloride 1,000 ML 999 ML IV ×2 (14:31→16:33)
[2021-06-05 14:44] LABS: COVID-19 Test Negative (Negative)
[2021-06-05 14:46] LABS: MANUAL DIFF FLAG NO
[2021-06-05] MEDS: ondansetron HCL 4 MG/2 ML VIAL IVPUSH (14:48)
[2021-06-05 14:49] LABS: Basophils Absolute Auto 0.1 X10*3/uL (0.0-0.2); Basophils Percent Auto 0.6 % (0-2); Eosinophils Absolute Auto 0.2 X10*3/uL (0.0-0.4); Hematocrit 35.4 % (37.0-47.0); Hemoglobin 11.3 g/dl (12.0-16.0); Imm Gran Abs Auto 0.07 X10*3/uL (0.00-0.03); Imm Gran Pct Auto 0.4 % (0.0-0.4); Lymphocytes Absolute Auto 4.6 X10*3/uL (1.2-4.9); Lymphocytes Percent Auto 29.1 % (20-40); Mean Corpuscular HGB Conc 31.9 g/dl (31.0-35.0); Mean Corpuscular Hemoglobin 26.6 pg (27.0-33.0); Mean Corpuscular Volume 83.3 fL (80.0-98.0); Mean Platelet Volume 10.7 fL (9.4-12.3); Monocytes Absolute Auto 1.1 X10*3/uL (0.1-1.2); Monocytes Percent Auto 6.8 % (2-11); Neutrophils Absolute Auto 9.7 x10*3/uL (2.0-8.3); Neutrophils Percent Auto 62.1 % (45-73); Platelet Count 315 X10*3/uL (160-400); Red Blood Count 4.25 X10*6/uL (4.20-5.50); Red Cell Distribution Width 15.4 % (11.0-16.0); White Blood Count 15.7 X10*3/uL (4.8-10.8)
[2021-06-05] MEDS: Ketorolac Tromethamine 15 MG/ML VIAL 30 MG IVPUSH (14:50)
[2021-06-05] MEDS: HYDROmorphone HCl 1 MG/ML SYRINGE IVPUSH ×2 (14:55→18:38)
[2021-06-05 15:09] LABS: Alanine Aminotransferase 16 U/L (0-31); Albumin Level 3.9 g/dL (3.5-5.0); Alkaline Phosphatase 84 U/L (39-117); Anion Gap 15 (12-20); Aspartate Amino Transferase 18 U/L (5-31); Bilirubin Total 0.4 mg/dL (0.0-1.0); Blood Urea Nitrogen 17 mg/dL (9-16); Calcium 9.3 mg/dL (8.4-10.2); Carbon Dioxide 22 mmol/L (22-29); Chloride 106 mmol/L (96-108); Creatinine Clr Calc Pharmacy 96.5; Estimated Glomerular Filt Rate > 60; Glucose Random 89 mg/dL (60-115); Potassium 4.3 mmol/L (3.3-5.1); Sodium 139 mmol/L (135-145)
[2021-06-05 16:49] LABS: HCG Quantitative < 2 mIU/mL
[2021-06-05 17:40] LABS: Appearance Urine HAZY; Color Urine YELLOW; Glucose Urine UA NEG (NEG); Leukocyte Esterase Urine NEG (NEG); Nitrite Urine NEG (NEG); Specific Gravity - Urine 1.025 (1.005-1.025); UACC Culture Trigger NO; Urine Blood 1+ (NEG); Urine Ketones NEG (NEG); Urine Protein NEG (NEG-TRACE)
[2021-06-05 17:43] LABS: Urine Pregnancy NEGATIVE (NEGATIVE)
[2021-06-05 17:44] LABS: UPreg QC Valid YES
[2021-06-05 18:00] LABS: Bacteria Urine 1+ /LPF; Mucus Urine 4+ /LPF; Squamous Epithelial Cell Urine 3+ /LPF; WBC Urine 0-2 /HPF (0-4)
--- NOTE | 2021-06-05 23:02 | PM.IMHP ---
History of Present Illness Date of Service: 06/05/21 Chief Complaint: flank/abd pain this is a 36-year-old female with no significant past medical history presents to the hospital with complaints of worsening abdominal pain. Patient was seen in the hospital on 06/03 for the same reason, she was found to have an 80 mm stone at the proximal left ureter and too small obstructing stone, urology was consulted at that time, recommended outpatient therapy with tamsulosin as well as pain medications but patient returns today stating that the pain is worsening, localized to the left flank radiating to the groin, and is now shooting down her leg. The pain is 10/10, constant, not relieved with oxycodone given on 06/03. Patient reports subjective fever and chills, reports no urinary frequency urgency or dysuria. She tried Aleve, Motrin as well with no relief. On arrival to the ED patient hemodynamically stable with no significant abnormal vitals Labs are significant for WBC count of 15.7, BUN of 17 with a creatinine of 0.80, UA is negative for any evidence of infection, abdominal pelvic CT today shows moderate to severe hydronephrosis of the left kidney, 8 mm calculus within the proximal left ureter, with no changes from previous CT done 2 days ago Given failed outpatient therapy, patient will be admitted, will be seen by Urology in a.m. Review of Systems Review of Systems: Yes all other systems are reviewed and are negative [facility] Medical History (Updated 06/06/21 @ 06:35 by Yahaira Wright MD) Hernandez's palsy Family History (Updated 06/06/21 @ 06:33 by Yahaira Wright MD) Father CKD (chronic kidney disease) Mother CHF (congestive heart failure) Coronary artery disease Diabetes Surgical History (Updated 06/06/21 @ 06:34 by Yahaira Wright MD) No pertinent past surgical history Social History (Updated 06/06/21 @ 06:34 by Yahaira Wright MD) Alcohol intake: current Patient Tobacco Use Status: Current everyday Tobacco user Use of substances other than those prescribed or required for medical reasons: No Advance Directives: No Advance Directives Information Provided: No Patient : No Meds Allergies Allergy/AdvReac Type Severity Reaction Status Date / Time No Known Allergies Allergy Verified 06/03/21 12:00 Active Medications: Current Medications Acetaminophen (Acetaminophen 325 Mg Tablet) 650 mg PO Q6H PRN PRN Reason: Pain, Mild (Pain Scale 1-3) Hydromorphone HCl (Hydromorphone Hcl 1 Mg/Ml Syringe) 0.5 mg IVPUSH Q4H PRN; Protocol PRN Reason: Pain, Severe (Pain Scale 7-10) Lactated Ringer's (Lr) 1,000 mls @ 100 mls/hr IVCONT .Q10H CARLOS Ondansetron HCl (Ondansetron Hcl 4 Mg/2 Ml Vial) 4 mg IVPUSH Q8H PRN PRN Reason: Nausea and Vomiting Pharmacy Consult (Consult Rx Perform Med Rec) 1 each MISCELLANE ONCE PRN PRN Reason: Consult order Sodium Chloride (0.9 % Sodium Chloride Flush 3 Ml Syringe) 3 ml IVFLUSH QSHIFT CARLOS Physical Exam Vital Signs and Narrative: Vital Signs: Last Vital Signs Temp 98.1 F 06/05/21 10:52 Pulse 68 06/05/21 18:44 Resp 17 06/05/21 18:44 BP 116/75 06/05/21 18:44 Pulse Ox 99 06/05/21 18:44 BMI result Body Mass Index 30.1 Const: General: cooperative and no acute distress Orientation/consciousness: patient oriented x3 Eyes: General: appearance normal, both eyes and all related structures Resp: Effort & Inspection: normal respiratory effort Auscultation: clear to auscultation bilaterally Cardio: Rate: regular rate Rhythm: regular rhythm GI: Palpation (GI): Soft to palpation Auscultation: normal bowel sounds : Other: Left CVA tenderness, suprapubic tenderness on deep palpation Skin: General skin exam: no rashes or lesions noted Neuro: General: patient oriented x3 Cognition (Neuro): normal cognition Extrem: General: Yes normal to inspection and Yes no pedal edema Results Labs CBC and Chem 7: 06/05/21 14:30 06/05/21 14:30 Labs: Laboratory Results - last 24 hr 06/05/21 06/05/21 06/05/21 14:10 14:30 14:30 MCV 83.3 MCH 26.6 L MCHC 31.9 RDW 15.4 Plt Count 315 MPV 10.7 Immature Gran % (Auto) 0.4 Neut % (Auto) 62.1 Lymph % (Auto) 29.1 [place] % (Auto) 6.8 Eos % (Auto) 1.0 Baso % (Auto) 0.6 Lymph # (Auto) 4.6 [place] # (Auto) 1.1 Eos # (Auto) 0.2 Baso # (Auto) 0.1 Abs Immat Gran (auto) 0.07 H Absolute Neuts (auto) 9.7 H Absolute Nucleated RBC 0.000 Nucleated RBC % (auto) 0.0 Anion Gap 15 Estim Creat Clear Calc 96.5 Estimated GFR > 60 Random Glucose 89 Calcium 9.3 Total Bilirubin 0.4 AST 18 ALT 16 Alkaline Phosphatase 84 Total Protein 7.0 Albumin 3.9 Beta HCG, Quant < 2 Urine Color Urine Appearance Urine pH Ur Specific [place] Urine Protein Urine Glucose (UA) Urine Ketones Urine Blood Urine Nitrite Ur Leukocyte Esterase Urine RBC Urine WBC Ur Squamous Epith Cells Urine Bacteria Urine Mucus Urine Test COVID-19 (ANNETTE) Negative COVID-19 Clin Com See Note 06/05/21 06/05/21 17:29 17:29 MCV MCH MCHC RDW Plt Count MPV Immature Gran % (Auto) Neut % (Auto) Lymph % (Auto) [place] % (Auto) Eos % (Auto) Baso % (Auto) Lymph # (Auto) [place] # (Auto) Eos # (Auto) Baso # (Auto) Abs Immat Gran (auto) Absolute Neuts (auto) Absolute Nucleated RBC Nucleated RBC % (auto) Anion Gap Estim Creat Clear Calc Estimated GFR Random Glucose Calcium Total Bilirubin AST ALT Alkaline Phosphatase Total Protein Albumin Beta HCG, Quant Urine Color YELLOW Urine Appearance HAZY Urine pH 6.0 Ur Specific [place] 1.025 Urine Protein NEG Urine Glucose (UA) NEG Urine Ketones NEG Urine Blood 1+ H Urine Nitrite NEG Ur Leukocyte Esterase NEG Urine RBC 5-9 H Urine WBC 0-2 Ur Squamous Epith Cells 3+ Urine Bacteria 1+ Urine Mucus 4+ Urine Test NEGATIVE COVID-19 (ANNETTE) COVID-19 Clin Com Imaging Radiologist's Impressions: Impressions Abdomen/Pelvis CT 06/05/21 17:18 IMPRESSION: Moderate to severe hydronephrosis of the left kidney is again noted secondary to an 8 mm calculus within the proximal left ureter. Calculus demonstrates no appreciable change in positioning from imaging 2 days ago. Fleischner guidelines were followed. Assessment and Plan (1) Kidney stone: Status: Acute (2) Hydronephrosis concurrent with and due to calculi of kidney and ureter: Status: Acute Plan 36-year-old female with no significant past medical history presents to the hospital with complaints of left flank pain found to have hydronephrosis secondary to obstructing kidney stone # obstructing kidney stone - IV fluids, pain control, NPO after midnight for management by Urology Given failed outpatient therapy patient will need admission for management of shock thing kidney stone as well as severe hydronephrosis and further management Quality Stroke Does the patient have a stroke diagnosis?: No VTE Prior VTE?: No VTE Risk Level:: Medical - moderate - high VTE Device Contraindication: N/A - Device Ordered VTE Drug Contraindication: Treatment Not Indicated
[2021-06-05] MEDS: Lactated Ringers 1,000 ML 100 ML IVCONT (23:14)
[2021-06-06] VITALS (10 sets, daily range): BP systolic 108–136; BP diastolic 49–73; PULSE 54–63; RESP 15–18; TEMP 36.5–36.9; O2SAT 98–100; BMI 30.1
[2021-06-06] MEDS: HYDROmorphone HCl 1 MG/ML SYRINGE 0.5 MG IVPUSH ×4 (00:17→23:16)
--- NOTE | 2021-06-06 00:47 | PC.NURSE ---
Report given to RN. Plan for transfer to [facility].
[2021-06-06] MEDS: ondansetron HCL 4 MG/2 ML VIAL IVPUSH ×3 (01:09→18:11)
--- NOTE | 2021-06-06 01:14 | PC.NURSE ---
Pt arrived from ED around 99. Pt A&OX3, pleasant and cooperative. Speech is clear and appropriate. LS-CTA. No cough and no sob. BS+, +N/V-Zofran given at 108. Pt c/o 08/25 LLQ pain. Dilaudid recently given in ED. Will continue to monitor.
--- NOTE | 2021-06-06 05:54 | PC.NURSE ---
Patient slept comfortably throughout the night after receiving Zofran. Patients family member with patient overnight. Will continue to monitor.
[2021-06-06 07:15] LABS: Basophils Absolute Auto 0.1 X10*3/uL (0.0-0.2); Basophils Percent Auto 0.8 % (0-2); Eosinophils Absolute Auto 0.3 X10*3/uL (0.0-0.4); Eosinophils Percent Auto 2.8 % (0-4); Hemoglobin 10.2 g/dl (12.0-16.0); Imm Gran Abs Auto 0.02 X10*3/uL (0.00-0.03); Imm Gran Pct Auto 0.2 % (0.0-0.4); Lymphocytes Absolute Auto 3.9 X10*3/uL (1.2-4.9); Lymphocytes Percent Auto 42.1 % (20-40); MANUAL DIFF FLAG SCAN; Mean Corpuscular HGB Conc 30.9 g/dl (31.0-35.0); Mean Corpuscular Hemoglobin 26.3 pg (27.0-33.0); Mean Corpuscular Volume 85.1 fL (80.0-98.0); Mean Platelet Volume 11.6 fL (9.4-12.3); Monocytes Absolute Auto 0.6 X10*3/uL (0.1-1.2); Monocytes Percent Auto 6.5 % (2-11); Neutrophils Absolute Auto 4.4 x10*3/uL (2.0-8.3); Neutrophils Percent Auto 47.6 % (45-73); PLT CLUMP 1; Red Blood Count 3.88 X10*6/uL (4.20-5.50); Red Cell Distribution Width 15.5 % (11.0-16.0); SCAN SMEAR FLAG 1
[2021-06-06] MEDS: 0.9 % Sodium Chloride Flush 3 ML SYRINGE IVFLUSH (08:12)
[2021-06-06 08:16] LABS: White Blood Count 9.2 X10*3/uL (4.8-10.8)
[2021-06-06 08:17] LABS: Platelet Count 217 X10*3/uL (160-400); SLIDE REVIEW VERIFIED
--- NOTE | 2021-06-06 08:48 | PC.NURSE ---
Pt is A&Ox4, +nausea with one episode of vomiting this morning, pain to flank 7/10, medicated for pain as well as nausea. Pt is ambulatory independently, uses call leyva appropriately. Awaiting urology consult at this time. Will continue to monitor.
[2021-06-06] MEDS: Lactated Ringers 1,000 ML 100 ML IVCONT (09:04)
--- NOTE | 2021-06-06 09:28 | MHC.CM.PN ---
Addendum entered by Lili Gunter 06/06/21 10:04: CM CALLED [facility] AND WAS INFORMED NONE OF THE PRIMARY CARE PROVIDERS ACCEPT PTS INSURANCE. PT INFORMED Original Note: CM MET WITH PT AND HER S/O WHO WAS AT BEDSIDE PT REPORTS SHE IS FULLY INDEPENDENT AND HAS NO SERVICES AND NO DME PT COMPLETED A HCP TODAY NAMING HER S/O, BORIS, HER AGENT PT DOES NOT HAVE A PCP, SHE REPORTS SHE WAS ASSIGNED TO THE [facility] BUT WHEN SHE CALLED THEY TOLD HER THERE WAS A WAIT LIST OF ABOUT 700 PEOPLE AHEAD OF HER SHE IS INTERESTED IN A [facility] PROVIDER, CM PROVIDED A LIST AND EDUCATION ON HER INSURANCES REQUIREMENTS FOR CHANGING PROVIDERS PT REPORTS SHE IS VACCINATED AGAINST COVID-19 CURRENT DC PLAN IS HOME WITH NO SERVICES S/O TO TRANSPORT
[2021-06-06 09:34] LABS: Anion Gap 11 (12-20); Blood Urea Nitrogen 15 mg/dL (9-16); Carbon Dioxide 23 mmol/L (22-29); Chloride 110 mmol/L (96-108); Creatinine Clr Calc Pharmacy 102.9; Estimated Glomerular Filt Rate > 60; Glucose Random 84 mg/dL (60-115); Potassium 4.1 mmol/L (3.3-5.1); Sodium 140 mmol/L (135-145)
[2021-06-06 09:57] LABS: Calcium 8.5 mg/dL (8.4-10.2)
--- NOTE | 2021-06-06 11:38 | PC.NURSE ---
Pt's mother called, silviano that patient hasn't had surgery yet. Explained pt is awaiting a urology consult at this time which was explained to her yesterday while she was in the emergency department. Explained urology makes their rounds midday, pt has been NPO due to pending consult. Mother states pt is unaware of POC, I explained to the mother that I have spoken in depth with Swetha about the POC and pending consult. Phone call terminated by mother at this time.
--- NOTE | 2021-06-06 12:21 | PC.NURSE ---
Pt awake, offered pain medication at this time, pt states she is in pain (didn't give it a numeric rating) but is refusing medication at this time because she is too hungry.
--- NOTE | 2021-06-06 16:14 | P.CNUR_ITS ---
History of Present Illness Consult details Consult date: 06/06/21 Narrative: Swetha is a 36-year-old female Presents with persistent left-sided flank pain Creatinine 0.[address] scan with left severe hydroureteronephrosis and proximal 6 mm stone Failure to progress with conservative therapy Recommend intervention with retrograde, ureteroscopy laser lithotripsy and stent placement drains Review of Systems Constitutional: Constitutional: Reports as per HPI and Reports no additional constitutional complaints Cardiovascular: Cardiovascular: Reports as per HPI and Reports no additional cardiovascular complaints Respiratory: Respiratory: Reports as per HPI and Reports no additional respiratory complaints Gastrointestinal: Gastrointestinal: Reports as per HPI and Reports no additional gastrointestinal complaints Genitourinary: Genitourinary: Reports as per HPI Musculoskeletal: Musculoskeletal: Reports no additional musculoskeletal complaints and Reports as per HPI Neurologic: Reports system reviewed and no additional complaints, except as documented and Reports as per HPI PMFSH Past Medical History Medical History (Updated 06/06/21 @ 06:35 by Yahaira Wright MD) Hernandez's palsy Family History Family History (Updated 06/06/21 @ 06:33 by Yahaira Wright MD) Father CKD (chronic kidney disease) Mother CHF (congestive heart failure) Coronary artery disease Diabetes Surgical History Surgical History (Updated 06/06/21 @ 06:34 by Yahaira Wright MD) No pertinent past surgical history Social History Social History (Updated 06/06/21 @ 06:34 by Yahaira Wright MD) Alcohol intake: current Patient Tobacco Use Status: Current everyday Tobacco user Use of substances other than those prescribed or required for medical reasons: No Advance Directives: Yes Advance Directives Information Provided: No Advance Directives on File: Yes Advance Directives Date on File: 06/06/21 Patient : No service: No Current occupational status: employed Meds Allergies Allergy/AdvReac Type Severity Reaction Status Date / Time No Known Allergies Allergy Verified 06/03/21 12:00 Active Medications: Current Medications Acetaminophen (Acetaminophen 325 Mg Tablet) 650 mg PO Q6H PRN PRN Reason: Pain, Mild (Pain Scale 1-3) Hydromorphone HCl (Hydromorphone Hcl 1 Mg/Ml Syringe) 0.5 mg IVPUSH Q4H PRN; Protocol PRN Reason: Pain, Severe (Pain Scale 7-10) Last Admin: 06/06/21 13:41 Dose: 0.5 mg Documented by: Lactated Ringer's (Lr) 1,000 mls @ 100 mls/hr IVCONT .Q10H [facility] Last Admin: 06/06/21 09:04 Dose: 100 mls/hr Documented by: Ondansetron HCl (Ondansetron Hcl 4 Mg/2 Ml Vial) 4 mg IVPUSH Q8H PRN PRN Reason: Nausea and Vomiting Last Admin: 06/06/21 08:12 Dose: 4 mg Documented by: Pharmacy Consult (Consult Rx Perform Med Rec) 1 each MISCELLANE ONCE PRN PRN Reason: Consult order Sodium Chloride (0.9 % Sodium Chloride Flush 3 Ml Syringe) 3 ml IVFLUSH QSHIFT [facility] Last Admin: 06/06/21 08:12 Dose: 3 ml Documented by: Physical Exam Vital Signs: Vital Signs: Last Vital Signs Temp 98.2 F 06/06/21 16:08 Pulse 63 06/06/21 16:08 Resp 18 06/06/21 16:08 BP 120/68 06/06/21 16:08 Pulse Ox 99 06/06/21 16:08 BMI result Body Mass Index 30.1 Const: General: cooperative, healthy appearing, comfortable and no acute distress Orientation/consciousness: patient oriented x3 HEENT: Face and sinus: Yes normal facial exam Mouth: moist mucous membranes Neck: Neck: Yes normal visual inspection, Yes full ROM and Yes trachea midline Chest: Chest palpation & inspection: normal inspection of the chest Resp: Effort & Inspection: normal respiratory effort, able to speak in complete sentences and no respiratory distress GI: Inspection: Yes normal to inspection Back/Spine/Pelvis: Cervical Spine: normal cervical lordosis Thoracic/Lumbar Spine: thoracic and lumbar spine normal to inspection Skin: General skin exam: no rashes or lesions noted Neuro: General: patient oriented x3, tone normal and moves all extremities Extrem: General: Yes normal to inspection and Yes capillary refill normal Results Labs Result diagrams: 06/06/21 06:54 06/06/21 08:51 Labs: Abnormal lab results 06/05/21 06/06/21 06/06/21 Range/Units 17:29 06:54 08:51 RBC 3.88 L (4.20-5.50) X10*6/uL Hgb 10.2 L (12.0-16.0) g/dl Hct 33.0 L (37.0-47.0) % MCH 26.3 L (27.0-33.0) pg MCHC 30.9 L (31.0-35.0) g/dl Lymph % (Auto) 42.1 H (20-40) % Chloride 110 H (96-108) mmol/L Anion Gap 11 L (12-20) Urine Blood 1+ H (NEG) Urine RBC 5-9 H (0) /HPF Short CBC 06/06/21 Range/Units 06:54 WBC 9.2 (4.8-10.8) X10*3/uL Hgb 10.2 L (12.0-16.0) g/dl Hct 33.0 L (37.0-47.0) % Plt Count 217 D (160-400) X10*3/uL BMP 06/06/21 08:51 Sodium 140 Potassium 4.1 Chloride 110 H Carbon Dioxide 23 BUN 15 Creatinine 0.75 Calcium 8.5 D Urine 06/05/21 06/05/21 Range/Units 17:29 17:29 Urine Color YELLOW Urine Appearance HAZY Urine pH 6.0 (5.0-8.0) Ur Specific [place] 1.025 (1.005-1.025) Urine Protein NEG (NEG-TRACE) MG/DL Urine Glucose (UA) NEG (NEG) MG/DL Urine Test NEGATIVE (NEGATIVE) All other labs normal. Assessment and Plan (1) Hydronephrosis concurrent with and due to calculi of kidney and ureter: Status: Acute (2) Kidney stone: Status: Acute Plan Ureteroscopy We discussed the nature of the decision and reasonable alternatives for performing the above surgery. Interventions include chemical dissolution, ESWL, ureteroscopy with laser lithotripsy and stent placement, PCNL. Options such as medical therapy were discussed. The relative uncertainties and benefits related to each alternate procedure were adequately discussed. General surgical risks including, but not limited to, pain, bleeding, infection, myocardial infarction, pulmonary embolus, deep vein thrombosis and cerebrovascular accident which may result in further hospitalization were discussed. Full disclosure of the procedure as well as all major risks, benefits and complications were discussed including but not limited to damage to the urethra, bladder and kidney infection, damage to the ureter, stent migration or malposition, scarring to the renal pelvis, remnant stone fragments, subsequent stone passage with need for secondary procedures. The overall secondary procedure rate is approximately 10-15%. The success rate of the procedure was discussed. Success of the procedure in the short-term does not necessarily guarantee that long-term success will be maintained. Suitable follow up will need to be maintained. The patient showed understanding of discussion and wishes to proceed with - cystoscopy, retrograde, ureteroscopy, possible lithotripsy/stone basketing and stent on the left side Procedures Date of Service Date of Service: 06/06/21
--- NOTE | 2021-06-06 16:34 | P.PNIM_ITS ---
Subjective Subjective Date of Service: 06/06/21 Interval History: persistent flank pain Review of Systems denies chest pain Denies shortness of breath Denies nausea vomiting diarrhea Physical Exam Vital Signs: Vital Signs: Last Vital Signs Temp 98.2 F 06/06/21 16:08 Pulse 63 06/06/21 16:08 Resp 18 06/06/21 16:08 BP 120/68 06/06/21 16:08 Pulse Ox 99 06/06/21 16:08 BMI result Body Mass Index 30.1 Const: Other: uncomfortable due to pain Resp: Other: clear to auscultation bilaterally no rales rhonchi wheezes Cardio: Other: no S4; positive S1-S2; no S3 murmurs rubs gallops GI: Other: soft positive bowel sounds x4 quadrants Extrem: Other: no edema Objective Data Active Medications Acetaminophen (Acetaminophen 325 Mg Tablet) 650 mg PO Q6H PRN PRN Reason: Pain, Mild (Pain Scale 1-3) Hydromorphone HCl (Hydromorphone Hcl 1 Mg/Ml Syringe) 0.5 mg IVPUSH Q4H PRN; Protocol PRN Reason: Pain, Severe (Pain Scale 7-10) Last Admin: 06/06/21 13:41 Dose: 0.5 mg Documented by: ALONSO Lactated Ringer's (Lr) 1,000 mls @ 100 mls/hr IVCONT .Q10H [facility] Last Admin: 06/06/21 09:04 Dose: 100 mls/hr Documented by: ALONSO Ondansetron HCl (Ondansetron Hcl 4 Mg/2 Ml Vial) 4 mg IVPUSH Q8H PRN PRN Reason: Nausea and Vomiting Last Admin: 06/06/21 08:12 Dose: 4 mg Documented by: ALONSO Pharmacy Consult (Consult Rx Perform Med Rec) 1 each MISCELLANE ONCE PRN PRN Reason: Consult order Sodium Chloride (0.9 % Sodium Chloride Flush 3 Ml Syringe) 3 ml IVFLUSH QSHIFT [facility] Last Admin: 06/06/21 08:12 Dose: 3 ml Documented by: ALONSO Labs CBC & Chem 7: 06/06/21 06:54 06/06/21 08:51 Labs: Laboratory Results - last 24 hr 06/05/21 06/05/2106/05/22 14:30 17:29 17:29 MCV MCH MCHC RDW Plt Count MPV Immature Gran % (Auto) Neut % (Auto) Lymph % (Auto) [place] % (Auto) Eos % (Auto) Baso % (Auto) Lymph # (Auto) [place] # (Auto) Eos # (Auto) Baso # (Auto) Abs Immat Gran (auto) Absolute Neuts (auto) Absolute Nucleated RBC Nucleated RBC % (auto) Smear Tech's Comments Anion Gap Estim Creat Clear Calc Estimated GFR Random Glucose Calcium Beta HCG, Quant < 2 Urine Color YELLOW Urine Appearance HAZY Urine pH 6.0 Ur Specific [place] 1.025 Urine Protein NEG Urine Glucose (UA) NEG Urine Ketones NEG Urine Blood 1+ H Urine Nitrite NEG Ur Leukocyte Esterase NEG Urine RBC 5-9 H Urine WBC 0-2 Ur Squamous Epith Cells 3+ Urine Bacteria 1+ Urine Mucus 4+ Urine Test NEGATIVE 06/06/21 06/06/21 06:54 08:51 MCV 85.1 MCH 26.3 L MCHC 30.9 L RDW 15.5 Plt Count 217 D MPV 11.6 Immature Gran % (Auto) 0.2 Neut % (Auto) 47.6 Lymph % (Auto) 42.1 H [place] % (Auto) 6.5 Eos % (Auto) 2.8 Baso % (Auto) 0.8 Lymph # (Auto) 3.9 [place] # (Auto) 0.6 Eos # (Auto) 0.3 Baso # (Auto) 0.1 Abs Immat Gran (auto) 0.02 Absolute Neuts (auto) 4.4 Absolute Nucleated RBC 0.000 Nucleated RBC % (auto) 0.0 Smear Tech's Comments VERIFIED Anion Gap 11 L Estim Creat Clear Calc 102.9 Estimated GFR > 60 Random Glucose 84 Calcium 8.5 D Beta HCG, Quant Urine Color Urine Appearance Urine pH Ur Specific [place] Urine Protein Urine Glucose (UA) Urine Ketones Urine Blood Urine Nitrite Ur Leukocyte Esterase Urine RBC Urine WBC Ur Squamous Epith Cells Urine Bacteria Urine Mucus Urine Test Assessment and Plan (1) Hydronephrosis concurrent with and due to calculi of kidney and ureter: Status: Acute Plan 36-year-old female with no significant past medical history presents to the hospital with complaints of left flank pain found to have hydronephrosis secondary to obstructing kidney stone # obstructing kidney stone - IV fluids, pain control, NPO after midnight -stent as per Urology Given failed outpatient therapy patient will need admission for management of shock thing kidney stone as well as severe hydronephrosis and further management Quality Stroke Does the patient have a stroke diagnosis?: No VTE Prior VTE?: No VTE Risk Level:: Medical - moderate - high VTE Device Contraindication: N/A - Device Ordered VTE Drug Contraindication: Treatment Not Indicated
--- NOTE | 2021-06-06 16:48 | MHC.SHP ---
Pre-Procedural Eval Section A Date of Service: 06/06/21 The patient is an INPATIENT: Yes Changes since office visit: No Cold of Flu in the past 2 weeks, No New Medical Problems, No Changes in Medication and No Patient answered all questions The History & Physical has been completed within 30 days and I have reviewed it.: Yes Section B Chief Complaint: Hydronephrosis, urinary calculus Allergies: Allergies Allergy/AdvReac Type Severity Reaction Status Date / Time No Known Allergies Allergy Verified 06/03/21 12:00 Plan Diagnosis/Plan: Unchanged ( left retrograde, ureteroscopy, laser lithotripsy, stent placement) I have reviewed the history and physical and performed a pertinent physical examination on my patient. No changes have occurred unless specified.
[2021-06-06] MEDS: levoFLOXacin/D5W 500 MG/100 ML PIGGYBACK 100 MG IV (17:08)
--- NOTE | 2021-06-06 17:09 | PC.NURSE ---
Pt off unit at 1545 to SSS
--- NOTE | 2021-06-06 17:14 | P.CONAN_ITS ---
HPI - Anesthesia Eval Consult details Narrative: 36 F for cystoscopy , ureteroscopy, laser lithotripsy, possible stent placement. [facility] Active Problems Active Problems: All Active Problems (Updated 06/06/21 @ 06:35 by Yahaira Wright MD) Hydronephrosis concurrent with and due to calculi of kidney and ureter (Acute) Kidney stone (Acute) Past Medical History Medical History (Updated 06/06/21 @ 06:35 by Yahaira Wright MD) Hernandez's palsy Functional capacity: independent ambulation Family History Family History (Updated 06/06/21 @ 06:33 by Yahaira Wright MD) Father CKD (chronic kidney disease) Mother CHF (congestive heart failure) Coronary artery disease Diabetes Family history of problems with anesthesia: No Surgical History Surgical History (Updated 06/06/21 @ 06:34 by Yahaira Wright MD) No pertinent past surgical history History of Problems with Anesthesia: No Social History Social History (Updated 06/06/21 @ 06:34 by Yahaira Wright MD) Alcohol intake: current Patient Tobacco Use Status: Former Tobacco user Quit Date: week ago Tobacco use type: Cigarette Smoked in Last 30 Days: Yes Patient Interested in Nicotine Replacement: Yes Patient Given Instructions on How to Stop Smoking: No Second Hand Smoke Exposure: No Use of substances other than those prescribed or required for medical reasons: No Have you been hit, kicked, punched, or otherwise hurt by someone within the past year? If so, by whom?: No Are you DNR?: No Advance Directives: Yes Advance Directives Information Provided: No Advance Directives on File: Yes Advance Directives Date on File: 06/06/21 Recently lost weight without trying: No Nutrition Risks: No Nutritional Risk Patient : No : No Poor oral hygiene: No service: No Current occupational status: employed Meds Allergies Allergy/AdvReac Type Severity Reaction Status Date / Time No Known Allergies Allergy Verified 06/03/21 12:00 Active Medications: Current Medications Acetaminophen (Acetaminophen 325 Mg Tablet) 650 mg PO Q6H PRN PRN Reason: Pain, Mild (Pain Scale 1-3) Hydromorphone HCl (Hydromorphone Hcl 1 Mg/Ml Syringe) 0.5 mg IVPUSH Q4H PRN; Protocol PRN Reason: Pain, Severe (Pain Scale 7-10) Last Admin: 06/06/21 13:41 Dose: 0.5 mg Documented by: Lactated Ringer's (Lr) 1,000 mls @ 100 mls/hr IVCONT .Q10H [facility] Last Admin: 06/06/21 09:04 Dose: 100 mls/hr Documented by: Ondansetron HCl (Ondansetron Hcl 4 Mg/2 Ml Vial) 4 mg IVPUSH Q8H PRN PRN Reason: Nausea and Vomiting Last Admin: 06/06/21 08:12 Dose: 4 mg Documented by: Pharmacy Consult (Consult Rx Perform Med Rec) 1 each MISCELLANE ONCE PRN PRN Reason: Consult order Sodium Chloride (0.9 % Sodium Chloride Flush 3 Ml Syringe) 3 ml IVFLUSH QSHIFT [facility] Last Admin: 06/06/21 08:12 Dose: 3 ml Documented by: Exam Exam Date and Time: June 06, 2021 171 Height,Weight and Vital Signs: Height 5 ft 3 in Weight 77.11 kg Last Vital Signs Temp 98.2 F 06/06/21 16:08 Pulse 63 06/06/21 16:08 Resp 18 06/06/21 16:08 BP 120/68 06/06/21 16:08 Pulse Ox 99 06/06/21 16:08 Pertinent Lab Results Pertinent Lab Results: Laboratory Tests 06/05/21 06/05/21 06/05/21 14:10 14:30 14:30 WBC 15.7 H RBC 4.25 Hgb 11.3 L Hct 35.4 L MCV 83.3 MCH 26.6 L MCHC 31.9 RDW 15.4 Plt Count 315 MPV 10.7 Immature Gran % (Auto) 0.4 Neut % (Auto) 62.1 Lymph % (Auto) 29.1 [place] % (Auto) 6.8 Eos % (Auto) 1.0 Baso % (Auto) 0.6 Lymph # (Auto) 4.6 [place] # (Auto) 1.1 Eos # (Auto) 0.2 Baso # (Auto) 0.1 Abs Immat Gran (auto) 0.07 H Absolute Neuts (auto) 9.7 H Absolute Nucleated RBC 0.000 Nucleated RBC % (auto) 0.0 Smear Tech's Comments Sodium 139 Potassium 4.3 Chloride 106 Carbon Dioxide 22 Anion Gap 15 BUN 17 H Creatinine 0.80 Estim Creat Clear Calc 96.5 Estimated GFR > 60 Random Glucose 89 Calcium 9.3 Total Bilirubin 0.4 AST 18 ALT 16 Alkaline Phosphatase 84 Total Protein 7.0 Albumin 3.9 Beta HCG, Quant < 2 Urine Color Urine Appearance Urine pH Ur Specific [place] Urine Protein Urine Glucose (UA) Urine Ketones Urine Blood Urine Nitrite Ur Leukocyte Esterase Urine RBC Urine WBC Ur Squamous Epith Cells Urine Bacteria Urine Mucus Urine Test COVID-19 (ANNETTE) Negative COVID-19 Clin Com See Note 06/05/21 06/05/21 06/06/21 17:29 17:29 06:54 WBC 9.2 RBC 3.88 L Hgb 10.2 L Hct 33.0 L MCV 85.1 MCH 26.3 L MCHC 30.9 L RDW 15.5 Plt Count 217 D MPV 11.6 Immature Gran % (Auto) 0.2 Neut % (Auto) 47.6 Lymph % (Auto) 42.1 H [place] % (Auto) 6.5 Eos % (Auto) 2.8 Baso % (Auto) 0.8 Lymph # (Auto) 3.9 [place] # (Auto) 0.6 Eos # (Auto) 0.3 Baso # (Auto) 0.1 Abs Immat Gran (auto) 0.02 Absolute Neuts (auto) 4.4 Absolute Nucleated RBC 0.000 Nucleated RBC % (auto) 0.0 Smear Tech's Comments VERIFIED Sodium Potassium Chloride Carbon Dioxide Anion Gap BUN Creatinine Estim Creat Clear Calc Estimated GFR Random Glucose Calcium Total Bilirubin AST ALT Alkaline Phosphatase Total Protein Albumin Beta HCG, Quant Urine Color YELLOW Urine Appearance HAZY Urine pH 6.0 Ur Specific [place] 1.025 Urine Protein NEG Urine Glucose (UA) NEG Urine Ketones NEG Urine Blood 1+ H Urine Nitrite NEG Ur Leukocyte Esterase NEG Urine RBC 5-9 H Urine WBC 0-2 Ur Squamous Epith Cells 3+ Urine Bacteria 1+ Urine Mucus 4+ Urine Test NEGATIVE COVID-19 ([facility]TE) COVID-19 Clin Com 06/06/21 08:51 WBC RBC Hgb Hct MCV MCH MCHC RDW Plt Count MPV Immature Gran % (Auto) Neut % (Auto) Lymph % (Auto) [place] % (Auto) Eos % (Auto) Baso % (Auto) Lymph # (Auto) [place] # (Auto) Eos # (Auto) Baso # (Auto) Abs Immat Gran (auto) Absolute Neuts (auto) Absolute Nucleated RBC Nucleated RBC % (auto) Smear Tech's Comments Sodium 140 Potassium 4.1 Chloride 110 H Carbon Dioxide 23 Anion Gap 11 L BUN 15 Creatinine 0.75 Estim Creat Clear Calc 102.9 Estimated GFR > 60 Random Glucose 84 Calcium 8.5 D Total Bilirubin AST ALT Alkaline Phosphatase Total Protein Albumin Beta HCG, Quant Urine Color Urine Appearance Urine pH Ur Specific [place] Urine Protein Urine Glucose (UA) Urine Ketones Urine Blood Urine Nitrite Ur Leukocyte Esterase Urine RBC Urine WBC Ur Squamous Epith Cells Urine Bacteria Urine Mucus Urine Test COVID-19 (ANNETTE) COVID-19 Clin Com Airway Mallampati Class: II TM Dist: >3cm Neck ROM: Full Loose/Missing/Broken Teeth: Yes (filling recently came out . missing ) Heart: rrr Lungs: bl breath sounds Assessment and Plan Assessment Anesthesia Assessment: Anesthesia Plan Discussed and Chart Reviewed Final Anesthetic Review Family History of Problems with Anesthesia: No History of Problems with Anesthesia: No NPO: Yes ASA Class: II Final Preanesthetic Review: Meds/Allgs Chart Reviewed, Consent Obtained/Reviewed and Anes Risks/Benef Reviewed Patient Risk: Intermediate Procedure Risk: Intermediate Anesthetic Plan Anesthetic Plan: GA Disposition: Inp. Admit - Standard Bed
--- NOTE | 2021-06-06 17:32 | W.PM.OPN ---
Operative Note Operative Note Date of Service: 06/06/21 Narrative: PreOperative Diagnosis: left proximal ureteric stone with hydronephrosis Post Operative Diagnosis: left impacted proximal ureteric stone with hydronephrosis Procedure: - cystoscopy, left retrograde - left dilatation of ureteric orifice under fluoroscopy - left ureteroscopy, laser lithotripsy, stone basketing - left stent placement Surgeon: Dr Yonis Wagner Anesthesia: General Indications for procedure: 36-year-old female. Re-presented to hospital with persistent left flank pain. Imaging with 8 mm proximal ureteric stone in hydronephrosis. Procedure: After informed consent was verified patient was brought to the operating placed in supine position. Anesthesia was administered per protocol. Patient was placed in modified dorsal lithotomy position and prepped and draped in a sterile fashion. Safety pause time-out and side of surgery confirmed. Antibiotics confirmed. A 22 Hungarian cystoscope was inserted per urethra. Bladder was normal in its entirety. Both ureteric orifices were in normal position. The Left ureteric orifice was cannulated and a retrograde examination was performed. filling defects seen at junction between mid and proximal ureter consistent with transaxial imaging . A Sensor guidewire was placed up to the level of the renal pelvis under fluoroscopy. The rigid cystoscope was removed. A Conor dilator was placed over the Sensor guidewire and used to dilate the ureteric orifice under fluoroscopy. The dilator was removed. The semi rigid ureteral scope was placed alongside the Sensor guidewire. the stone was encountered. Using a 360 nm laser holmium fiber the stone was broken a small pieces. Using a flat wire basket fragments of the stone removed be sent for analysis. The stone was imbedded into the sidewall of the ureter and after removal there was a small defect. Due to the defect the stent should be placed for minimum 7-10 days. A 6 Hungarian by 24 cm double-J stent was placed into the renal pelvis and bladder under a combination of fluoroscopy and direct visualization. The bladder was emptied. The patient tolerated the procedure well and was extubated in the operating room, and transferred in stable condition to the recovery area. Pathology: stone Drains: 6 Hungarian by 24 cm double-J stent
[2021-06-06] MEDS: Phenazopyridine HCL 100 MG TABLET PO (17:57)
--- NOTE | 2021-06-06 19:04 | PC.NURSE ---
Patient returned from PACU states rt groin pain 2/10 at this time reported to RN. Offers no other complaints at this time. Visitor at bedside
[2021-06-06] MEDS: Acetaminophen 325 MG TABLET 650 MG PO (19:49)
--- NOTE | 2021-06-06 19:51 | PC.NURSE ---
Pt A&OX3. Pleasant and cooperative. Speech is clear and appropriate. Family at bedside. LS-CTA. No cough or sob per patient. BS+. Pt eating dinner at present time after being NPO-tolerating diet. IV fluids infusing as ordered. Pt c/o 05/25 left flank pain-Tylenol given. Pt ambualated to and from bathroom and voided a large amount with blood tinged urine. Will continue to monitor.
--- NOTE | 2021-06-06 20:55 | PC.NURSE ---
PT AMBULATED TO BATHROOM STEADY GAIT . STATES PAIN WORSE WITH WALKING 6/10 RN AWARE. PT VOIDED LARGE AMOUNT BLOOD TINGED URINE.
[2021-06-07] MEDS: Lactated Ringers 1,000 ML 100 ML IVCONT (00:25)
[2021-06-07 03:08] VITALS: BP 131/82; PULSE 53; RESP 16; TEMP 36.6; O2SAT 100
[2021-06-07] MEDS: HYDROmorphone HCl 1 MG/ML SYRINGE 0.5 MG IVPUSH (03:28)
[2021-06-07 06:26] VITALS: BP 125/64; PULSE 60; RESP 17; TEMP 37.1; O2SAT 98
[2021-06-07 07:13] LABS: MANUAL DIFF FLAG NO
[2021-06-07 07:16] LABS: Basophils Percent Auto 0.3 % (0-2); Eosinophils Percent Auto 0.1 % (0-4); Hematocrit 36.7 % (37.0-47.0); Hemoglobin 11.6 g/dl (12.0-16.0); Imm Gran Abs Auto 0.06 X10*3/uL (0.00-0.03); Imm Gran Pct Auto 0.5 % (0.0-0.4); Lymphocytes Absolute Auto 1.9 X10*3/uL (1.2-4.9); Lymphocytes Percent Auto 16.7 % (20-40); Mean Corpuscular HGB Conc 31.6 g/dl (31.0-35.0); Mean Corpuscular Hemoglobin 26.2 pg (27.0-33.0); Mean Platelet Volume 10.4 fL (9.4-12.3); Monocytes Absolute Auto 0.5 X10*3/uL (0.1-1.2); Monocytes Percent Auto 4.4 % (2-11); Neutrophils Absolute Auto 8.9 x10*3/uL (2.0-8.3); Platelet Count 337 X10*3/uL (160-400); Red Blood Count 4.42 X10*6/uL (4.20-5.50); Red Cell Distribution Width 14.3 % (11.0-16.0); White Blood Count 11.4 X10*3/uL (4.8-10.8)
[2021-06-07 07:29] LABS: Alanine Aminotransferase 14 U/L (0-31); Albumin Level 3.8 g/dL (3.5-5.0); Alkaline Phosphatase 85 U/L (39-117); Anion Gap 13 (12-20); Aspartate Amino Transferase 14 U/L (5-31); Bilirubin Total 0.8 mg/dL (0.0-1.0); Blood Urea Nitrogen 11 mg/dL (9-16); Calcium 9.3 mg/dL (8.4-10.2); Carbon Dioxide 23 mmol/L (22-29); Chloride 105 mmol/L (96-108); Creatinine Clr Calc Pharmacy 96.5; Estimated Glomerular Filt Rate > 60; Glucose Fasting 103 mg/dL (60-99); Potassium 4.4 mmol/L (3.3-5.1); Sodium 137 mmol/L (135-145); Total Protein 6.5 g/dL (6.5-8.0)
[2021-06-07] MEDS: oxyCODONE HCl Immed Release 5 MG TABLET 10 MG PO (08:49)
[2021-06-07] MEDS: ondansetron HCL 4 MG/2 ML VIAL IVPUSH (08:54)
[2021-06-07 10:21] VITALS: BP 128/66; PULSE 54; RESP 14; O2SAT 100
--- NOTE | 2021-06-07 10:44 | PC.NURSE ---
Pt alert and oriented, ambulatory and independent in the unit. C/o left abdominal/flank pain. Medicated with PO meds, see MAR. Pt scared of getting nauseous because of meds, so prn zofran given per request. is at bedside. belongings and callbell within reach.
--- NOTE | 2021-06-07 13:39 | P.DS_ITS ---
DS: Providers Provider Date of Service: 06/07/21 Date of admission: 06/05/21 22:50 Date of discharge: 06/07/21 Primary care physician: None Physician Consults: 06/05/21 22:47 Consult to Urology Routine Consulting Provider: Yonis Wagner Reason for consultation: severe hydronephrosis, ureter calculus Has provider been notified: Yes DS: Diagnosis Discharge Diagnosis (1) Hydronephrosis concurrent with and due to calculi of kidney and ureter: Status: Acute DS: Summary Hospital Course Hospital Course: 36-year-old female with no significant past medical history presents to the hospital with complaints of worsening abdominal pain.? Patient was seen in the hospital on 06/03 for the same reason, she was found to have an 80 mm stone at the proximal left ureter and too small obstructing stone, urology was consulted at that time, recommended outpatient therapy with tamsulosin as well as pain medications but patient returns today stating that the pain is worsening, lo calized to the left flank radiating to the groin, and is now shooting down her leg.? The pain is 10/10, constant, not relieved with oxycodone given on 06/03.? Patient reports subjective fever and chills, reports no urinary frequency urgency or dysuria.? She tried Aleve, Motrin as well with no relief. ER course Labs are significant for WBC count of 15.7, BUN of 17 with a creatinine of 0.80, UA is negative for any evidence of infection, abdominal pelvic CT today shows moderate to severe hydronephrosis of the left kidney, 8 mm calculus within the proximal left ureter, with no changes from previous CT done 2 days ago. Admitted to the general medical floor and seen in consultation by Dr. Wagner (urology). On 06/06/2021 patient underwent area left retrograde cystoscopy with laser lithotripsy and left stent placement. She did well with procedure and postop period was uneventful. At this point time she will be discharged with a course of Levaquin 15 oxycodone for pain and can follow up with Dr. Wagner in the office Time Spent with Patient Time attestation: Total time spent providing and/or coordinating discharge services: Discharge coordination time: Greater than 30 minutes Quality: Stroke Does the patient have a stroke diagnosis?: No Physical Exam Vital Signs: Vital Signs: Last Vital Signs Temp 98.8 F 06/07/21 06:26 Pulse 54 06/07/21 10:21 Resp 14 06/07/21 10:21 BP 128/66 06/07/21 10:21 Pulse Ox 100 06/07/21 10:21 BMI result Body Mass Index 30.1 Const: Other: uncomfortable due to pain Resp: Other: clear to auscultation bilaterally no rales rhonchi wheezes Cardio: Other: no S4; positive S1-S2; no S3 murmurs rubs gallops GI: Other: soft positive bowel sounds x4 quadrants Extrem: Other: no edema DS: Data Data Completed and Pending Pending studies at discharge: Pending at discharge 06/06/21 17:49 Surgical [PTH] Routine Labs on day of discharge: Laboratory Results - last 24 hr 06/07/21 06/07/21 07:08 07:08 WBC 11.4 H RBC 4.42 Hgb 11.6 L Hct 36.7 L MCV 83.0 MCH 26.2 L MCHC 31.6 RDW 14.3 Plt Count 337 D MPV 10.4 Immature Gran % (Auto) 0.5 H Neut % (Auto) 78.0 H Lymph % (Auto) 16.7 L [place] % (Auto) 4.4 Eos % (Auto) 0.1 Baso % (Auto) 0.3 Lymph # (Auto) 1.9 [place] # (Auto) 0.5 Eos # (Auto) 0.0 Baso # (Auto) 0.0 Abs Immat Gran (auto) 0.06 H Absolute Neuts (auto) 8.9 H Absolute Nucleated RBC 0.000 Nucleated RBC % (auto) 0.0 Sodium 137 Potassium 4.4 Chloride 105 Carbon Dioxide 23 Anion Gap 13 BUN 11 Creatinine 0.80 Estim Creat Clear Calc 96.5 Estimated GFR > 60 Fasting Glucose 103 H Calcium 9.3 D Total Bilirubin 0.8 AST 14 ALT 14 Alkaline Phosphatase 85 Total Protein 6.5 Albumin 3.8 Discharge Plan Discharge Patient Disposition: Home, Self-Care Discharge Diagnosis: Hydronephrosis concurrent with and due 2 calculi of kidney and ureter Referrals: Physician,None [Primary Care Provider] - 1 Week Discharge Medications: New levofloxacin 500 mg tablet 500 mg PO DAILY 7 Days Qty: 7 0RF oxycodone 10 mg tablet 5 mg PO TID PRN (Reason: pain (scale score 4-6)) Qty: 15 0RF Continued tamsulosin [Flomax] 0.4 mg capsule 0.4 mg PO DAILY 5 Days Qty: 5 0RF Label Comments: PRESCRIBED 2 DAYS AGO ON 06/03/21 Discontinued ketorolac 10 mg tablet 10 mg PO Q8H PRN (Reason: pain) Qty: 14 0RF Label Comments: PRESCRIBED 2 DAYS AGO ON 06/03/21 Rx Instructions: Given 1st dose in the ED ondansetron 4 mg tablet,disintegrating 4 mg PO Q6H Qty: 14 0RF Label Comments: PRESCRIBED 2 DAYS AGO ON 06/03/21 prednisone 20 mg tablet 40 mg PO DAILY 5 Days Qty: 10 0RF Label Comments: PRESCRIBED 2 DAYS AGO ON 06/03/21 oxycodone 5 mg capsule 5 mg PO Q8H PRN (Reason: pain) Qty: 8 0RF Label Comments: PRESCRIBED 2 DAYS AGO ON 06/03/21 Rx Instructions: Patient can partially filled prescription upon request Discharge Orders: Discharge Order (Routine); Ordered 06/07/21 Ordered By: Anton Daugherty Diet: advance to usual diet Activity on Discharge: As tolerated Stand Alone Forms: Patient Portal Discharge page Care Plan Goals: Complete course of antibiotics as ordered Health Concerns: Oxycodone for pain; may alternate with Tylenol or Motrin Plan of Treatment: Follow-up with Dr. Wagner in the office Assessment: See discharge summary
--- NOTE | 2021-06-07 13:55 | MHC.CM.PN ---
Received notification patient will be d/c'd home without services. Patient's sig other will transport home.
--- NOTE | 2021-06-07 15:27 | HO.POSTANES ---
Post Anesthesia Evaluation Post Anesthesia Evaluation Vital Signs: Vital Signs Temp Pulse Resp BP Pulse Ox 06/07/21 10:21 54 14 128/66 100 06/07/21 06:26 98.8 F 60 17 125/64 98 Anesthesia: General Mental Status: Awake Pain Control: Satisfactory Nausea/Vomiting: None Hydration: Adequate Anesthesia-Related Issues: No Anes. Related Issues
[2021-06-10 21:47] LABS: Stone Source KIDNEY STONE
== END 2021-06-07 14:16 | disposition home or self-care (01) | DRG 446 ==
LOC: HO.ED 18:29 → HO.EDOVER 23:23
PROVIDERS: Urology; Admitting Provider Internal Medicine; Emergency Provider Emergency Medicine; Visit Provider Hospitalist
PROC: 0TC78ZZ Extirpation of Matter from Left Ureter, Via Natural or Artificial Opening Endoscopic (ICD-10-PCS; principal; 2021-06-06 16:30)
DX: N13.2 Hydronephrosis with renal and ureteral calculous obstruction (principal); Z20.822 Contact with and (suspected) exposure to COVID-19; Z79.899 Other long term (current) drug therapy; Z87.891 Personal history of nicotine dependence
CPT/HCPCS: 36415; 74176; 80048; 80053; 81001; 81025; 82365; 84702; 85025; 87635; 88300; 99285; C1758; C1769; C2617; J1100; J1170; J1885; J1956; J2250; J2405; J3010; Q9967

== ENCOUNTER → 2021-06-16 09:43 | Outpatient (BNVA) | payer MEDICAID, SELFPAY | PROVIDERS: Visit Provider Urology | DX: N20.0 Calculus of kidney (principal) | CPT/HCPCS: 52310; 99212 ==

== ENCOUNTER 2021-09-14 15:21 | Outpatient (REF) | payer OTHER, SELFPAY ==
--- NOTE | ~2021-09-14 | US_ITS ---
EXAMINATION: US RETROPERITONEAL LIMITED (RENAL ONLY) CLINICAL INFORMATION: Calculus of kidney. COMPARISON: CT abdomen and pelvis without contrast 06/05/2021. CT abdomen and pelvis with contrast 06/03/2021. TECHNIQUE: Real-time imaging of the kidneys. FINDINGS: RIGHT KIDNEY: 11.6 x 4.6 x 6.2 cm (SAG x AP x TRV). The kidney is normal in size, contour, and echogenicity. An interrenuncular junction is noted. Renal cortical thickness is normal. No focal parenchymal lesions or hydronephrosis. At the lower pole, a 2 mm nonobstructing calculus is seen. LEFT KIDNEY: 12.6 x 5.9 x 5.3 cm (SAG x AP x TRV). The kidney is normal in size, contour, and echogenicity. There is marked hydronephrosis, with marked renal cortical thinning. No focal parenchymal lesions. At the lower pole, a 2.7 x 1.2 x 1.8 cm nonobstructing calculus is seen, with shadowing and twinkle artifact. At the ureteropelvic junction, a 1.0 x 0.8 x 0.7 cm calculus is seen, with twinkle artifact. BLADDER: Right ureteral jet is demonstrated; left is not. US/US renal BI IMPRESSION: 1. A 1.0 cm left ureteropelvic junction calculus is noted. There is secondary marked left hydronephrosis, with renal cortical thinning. These findings are consistent with prior imaging studies. 2. There are further nonobstructing bilateral renal calculi, as detailed.
== END 2021-09-14 15:22 | disposition home or self-care (01) ==
LOC: HO.HMGCX 15:21
PROVIDERS: Visit Provider Urology
DX: N20.0 Calculus of kidney (principal)
CPT/HCPCS: 76775

== ENCOUNTER 2021-09-25 13:52 | Day surgery (SDC) | payer OTHER, SELFPAY ==
--- NOTE | 2021-09-22 12:17 | HO.ANESPROP2 ---
Documented by User: Mitra Monsivais NP 09/22/21 12:18 HPI - Anesthesia Eval Consult details Narrative: 36yo F for Left Cystoscopy, Ureteroroscopy, Retro, Laser with stent s/p cyst, etc 05/2021 with GA-LMA 4 PMFSH Active Problems Active Problems: All Active Problems (Updated 06/16/21 @ 10:38 by Yonis Wagner MD) Calcium oxalate stones (Acute) Past Medical History Medical History Hernandez's palsy Family History Family History Father CKD (chronic kidney disease) Mother CHF (congestive heart failure) Coronary artery disease Diabetes Family history of problems with anesthesia: No Surgical History Surgical History No pertinent past surgical history History of Problems with Anesthesia: No Social History Social History Alcohol intake: current Patient Tobacco Use Status: Former Tobacco user Quit Date: week ago Tobacco use type: Cigarette Second Hand Smoke Exposure: No Advance Directives: Yes Advance Directives on File: Yes Advance Directives Date on File: 06/06/21 service: No Current occupational status: employed Meds Allergies Allergy/AdvReac Type Severity Reaction Status Date / Time No Known Allergies Allergy Verified 09/19/21 08:01 Exam Exam Date and Time: September 22, 2021 1217 Pertinent Lab Results Pertinent Lab Results: Laboratory Tests 06/07/21 06/07/21 07:08 07:08 WBC 11.4 H Hgb 11.6 L Hct 36.7 L Plt Count 337 D Sodium 137 Potassium 4.4 Chloride 105 Carbon Dioxide 23 BUN 11 Creatinine 0.80 Assessment and Plan Assessment Anesthesia Assessment: Chart Reviewed Final Anesthetic Review Family History of Problems with Anesthesia: No History of Problems with Anesthesia: No Documented by User: Helen Rutledge MD 09/25/21 14:02 [facility] Past Medical History Medical History Hernandez's palsy Functional capacity: independent ambulation Patient : No Family History Family History Father CKD (chronic kidney disease) Mother CHF (congestive heart failure) Coronary artery disease Diabetes Surgical History Surgical History No pertinent past surgical history Social History Social History Alcohol intake: current Patient Tobacco Use Status: Former Tobacco user Quit Date: week ago Tobacco use type: Cigarette Second Hand Smoke Exposure: No Advance Directives: Yes Advance Directives on File: Yes Advance Directives Date on File: 06/06/21 service: No Current occupational status: employed Meds Allergies Allergy/AdvReac Type Severity Reaction Status Date / Time No Known Allergies Allergy Verified 09/19/21 08:01 Exam Airway Mallampati Class: II TM Dist: >3cm Neck ROM: Full Heart: RRR Lungs: CTA Assessment and Plan Final Anesthetic Review ASA Class: II Final Preanesthetic Review: No Changes in Pt Med Stat, Meds/Allgs Chart Reviewed, Consent Obtained/Reviewed and Anes Risks/Benef Reviewed Patient Risk: Low Procedure Risk: Low Anesthetic Plan Anesthetic Plan: GA Disposition: Standard PACU
[2021-09-25] VITALS (8 sets, daily range): BP systolic 110–128; BP diastolic 66–83; PULSE 56–80; RESP 16; TEMP 36.4; O2SAT 95–100; BMI 30.9
--- NOTE | ~2021-09-25 | FL_ITS ---
EXAMINATION: XR FLUOROSCOPY WITH IMAGES CLINICAL INFORMATION: Cystoscopy, retrograde. COMPARISON: None. TECHNIQUE: Fluoroscopy performed by Dr. Bernard Somers. Fluoroscopy time: 22.2 seconds DAP: 8.49 mGycm2 Images: 1 FINDINGS: There is a single image of the pelvis revealing contrast opacifying the bladder with a left ureteral stent in place. No filling defects seen in bladder. FL/FL guidance in OR IMPRESSION: Fluoroscopy guidance was provided for cystography in the OR to the referring physician.
--- NOTE | 2021-09-25 14:15 | MHC.SHP ---
Pre-Procedural Eval Section A Date of Service: 09/25/21 The patient is an INPATIENT: No Changes since office visit: No Cold of Flu in the past 2 weeks, No New Medical Problems, No Changes in Medication and No Patient answered all questions The History & Physical has been completed within 30 days and I have reviewed it.: Yes Section B Chief Complaint: kidney stone Details of Present Illness: left renal stone for flexible ureteroscopy Allergies: Allergies Allergy/AdvReac Type Severity Reaction Status Date / Time No Known Allergies Allergy Verified 09/19/21 08:01 Plan Diagnosis/Plan: Unchanged ( cystoscopy, left retrograde, left flexible ureteroscopy with laser lithotripsy and stent placement) I have reviewed the history and physical and performed a pertinent physical examination on my patient. No changes have occurred unless specified.
[2021-09-25 14:17] LABS: UPreg QC Valid YES; Urine Pregnancy NEGATIVE (NEGATIVE)
[2021-09-25] MEDS: Lactated Ringers 1,000 ML 100 ML IVCONT (14:31)
[2021-09-25] MEDS: levoFLOXacin 500 MG TABLET PO (14:32)
[2021-09-25] MEDS: Acetaminophen 325 MG TABLET 650 MG PO (14:33)
--- NOTE | 2021-09-25 15:31 | HO.POSTANES ---
Post Anesthesia Evaluation Post Anesthesia Evaluation Anesthesia: General LMA Mental Status: Awake Pain Control: Satisfactory Nausea/Vomiting: None Hydration: Adequate Anesthesia-Related Issues: No Anes. Related Issues
--- NOTE | 2021-09-25 15:57 | W.PM.OPN ---
Operative Note Operative Note Date of Service: 09/25/21 Narrative: PreOperative Diagnosis: Left renal stone Post Operative Diagnosis: left UPJ stone Procedure: - cystoscopy, left retrograde - left dilatation of ureteric orifice under fluoroscopy - left ureteroscopy, laser lithotripsy, stone basketing - left stent placement Surgeon: Dr Yonis Wagner Anesthesia: General Indications for procedure: left proximal ureteric stone with flank pain. Approximately 9 mm. Procedure: After informed consent was verified patient was brought to the operating placed in supine position. Anesthesia was administered per protocol. Patient was placed in modified dorsal lithotomy position and prepped and draped in a sterile fashion. Safety pause time-out and side of surgery confirmed. Antibiotics confirmed. 22 Faroese cystoscope was inserted per urethra. Bladder was normal in its entirety. Both ureteric orifices were in normal position. The Left ureteric orifice was cannulated and a retrograde examination was performed. filling defects seen at proximal left ureter . A Sensor guidewire was placed up to the level of the renal pelvis under fluoroscopy. The rigid cystoscope was removed and the inner cannula of ureteric access sheath was used under fluoroscopy to dilate the ureteric orifice. The ureteric access sheath was placed and the inner cannula with access wire removed. The digital flexible ureteral scope was placed. stone was encountered in the proximal portion of the ureter. In pushed into the right kidney. Stone was pushed into the right kidney ending gauged using 272 micron laser fiber was broken into small pieces. a 1.9 [place] is 0 tip basket was used to remove fragments. At the completion the procedure the renal pelvis was irrigated out. A sensor guidewire placed. The access sheath removed. A 6 Faroese by 24cm double-J stent was placed into the renal pelvis and bladder under a combination of fluoroscopy and direct visualization. The bladder was emptied. The patient tolerated the procedure well and was extubated in the operating room, and transferred in stable condition to the recovery area. Pathology: Stones Drains: 6 Fr x 24cm stent
[2021-09-25] MEDS: Phenazopyridine HCL 100 MG TABLET PO (17:14)
--- NOTE | 2021-09-25 20:06 | PC.NURSE ---
1999 RECEIVED CALL FROM PATIENT UNABLE TO FILL POST OP PRESCRIPTIONS PHARMACY DOES NOT TAKE PATIENT INSURANCE. CALL TO [facility] WHO INDICATED CORRECT PATIENT INSURANCE NO TAKEN. CALL TO PATIENT TO IDENTIFY ALTERNATIVE PHARMACY FOR POST OP MEDICATIONS DR. WARREN NOTIFIED OF INSURANCE AND PHARMACY ISSUE. M.D. TO RESENT PRESCRIPTIONS TO NEW PHARMACY
[2021-09-28 23:12] LABS: Stone Source KIDNEY STONE
== END 2021-09-25 17:32 | disposition home or self-care (01) ==
PROVIDERS: Nurse Practitioner; Visit Provider Urology
PROC: (CPT 52356; principal; 2021-09-25 15:30)
DX: N20.1 Calculus of ureter (principal); G51.0 Bell's palsy; Z87.891 Personal history of nicotine dependence
CPT/HCPCS: 52356; 52352; 81025; 82365; 88300; C1758; C1769; C1894; C2617; J1100; J2250; J2405; J3010; Q9967

== ENCOUNTER → 2021-10-10 13:09 | Outpatient (BNVA) | payer OTHER, SELFPAY | PROVIDERS: Visit Provider Urology | DX: N20.0 Calculus of kidney (principal) | CPT/HCPCS: 52310; 99212 ==

== ENCOUNTER 2021-10-25 15:18 | Outpatient (REF) | payer OTHER, SELFPAY ==
--- NOTE | ~2021-10-25 | US_ITS ---
EXAMINATION: US RETROPERITONEAL LIMITED (RENAL ONLY) CLINICAL INFORMATION: Calculus of kidney. COMPARISON: Renal ultrasound 09/14/2021. Selected portions of CT abdomen and pelvis 06/05/2021. TECHNIQUE: Real-time imaging of the kidneys. FINDINGS: RIGHT KIDNEY: 11.5 x 5.3 x 5.9 cm (SAG x AP x TRV). The kidney is normal in size, contour, and echogenicity. Renal cortical thickness is normal. No calculi or focal parenchymal lesions. No hydronephrosis. LEFT KIDNEY: 11.8 x 5.5 x 4.5 cm (SAG x AP x TRV). The kidney is normal in size, contour, and echogenicity. No perinephric collection. Difficult to determine if a urinary stent is present. No focal parenchymal lesions. There is an oval 1.7 cm right structure likely within a dilated calyx. This could represent nonobstructing calculus or solid material within the collecting system. There is an additional 1.4 cm area of increased echogenicity likely within a dilated collecting system also in the lower pole but no shadowing. There is a 0.8 cm echogenic area elsewhere in the lower pole possibly within the collecting system without shadowing. There are moderately distended portions of the intrarenal collecting system. BLADDER: The bladder contains some low-level echoes. No convincing portion of a stent demonstrated. Bilateral ureteral jets are demonstrated. US/US renal BI IMPRESSION: Dilated urinary collecting system on the left. I am uncertain if there is a stent still present. There are areas of increased echogenicity likely within the left intrarenal collecting system but do not shadow. This represents blood clot, debris or nonshadowing calculi is uncertain. Difficult to determine if the dilated collecting system is residual from previous obstruction or whether there is ongoing obstruction from a none demonstrated etiology
== END 2021-10-25 15:19 | disposition home or self-care (01) ==
LOC: HO.US 15:18
PROVIDERS: Visit Provider Urology
DX: N20.0 Calculus of kidney (principal)
CPT/HCPCS: 76775

== ENCOUNTER 2021-12-01 07:43 | Emergency (ER) | payer OTHER, SELFPAY ==
--- NOTE | ~2021-12-01 | CT_ITS ---
EXAMINATION: CT ABDOMEN AND PELVIS WITHOUT CONTRAST CLINICAL INFORMATION: Left flank pain COMPARISON: 06/05/2021 TECHNIQUE: Multidetector volumetric imaging was performed from the superior aspect of the liver through the pubic symphysis. Sagittal and coronal reformatted images were obtained on the technologist's workstation. This CT examination was performed using dose optimization techniques as appropriate, variously including the following: *Automated exposure control *Adjustment of mA and/or kV according to patient size (this includes techniques or standardized protocols for targeted exams where dose is matched to indication/reason for exam; i.e. extremities or head) *Use of iterative reconstruction technique DLP: 691 mGy-cm FINDINGS: Motion degradation limits assessment. LUNG BASES: The visualized lung bases are unremarkable. LIVER, GALLBLADDER, AND BILIARY TREE: The liver is normal in size, shape, and attenuation. No focal hepatic lesion or biliary ductal dilatation is present. The gallbladder is unremarkable with no evidence of radiopaque gallstones, gallbladder wall thickening, or obvious pericholecystic inflammatory changes. PANCREAS: Unremarkable. SPLEEN: Unremarkable. ADRENAL GLANDS: Unremarkable. KIDNEYS AND URETERS: Limited by motion diminished. There are progressive calcific lesions within the low pole calyx. There is fullness of left collecting system is some high density material spectral within the proximal ureter just beyond the UPJ which could represent tiny obstructing stones. These measure up to 5 mm but it measured closer to 1 to 2 mm each. Limited detail. No right-sided abnormality. BLADDER: Unremarkable. GASTROINTESTINAL TRACT: The small and large bowel are unremarkable. The appendix is unremarkable. ABDOMINAL WALL: No significant hernia is appreciated. LYMPH NODES: Normal. VASCULAR: Unremarkable. PELVIC VISCERA: Incidental right ovarian dermoid with fat measuring up to at least 3 cm. OSSEOUS STRUCTURES: Unremarkable. CT/CT abdomen pelvis wo IV con IMPRESSION: Moderate obstruction of the left urinary collecting system down to the proximal ureter as above. Progressive stone disease within the left kidney. Incidental right-sided 3 cm dermoid. Fleischner guidelines were followed.
[2021-12-01 07:49] VITALS: BP 103/59; PULSE 84; RESP 18; TEMP 36.9; O2SAT 98; BMI 28.3
--- NOTE | 2021-12-01 10:07 | ED_ITS ---
HPI - Female Genitourinary General Chief complaint: Urogenital-Female Stated complaint: kidney stones/hemorrhoids/nausea Time Seen by Provider: 12/01/21 09:46 Source: patient Mode of arrival: ambulatory Limitations: no limitations History of Present Illness HPI Narrative: Patient presents emergency department for evaluation of left greater than right flank pain. Onset was 1 week ago. Pain has been constant, not worsening but not improving. Reports pain to feel similar to prior kidney stones. Described as aching. Denies any alleviating factors. Is followed by Urology, Dr. Wagner, had stent removal in September 2021. Reports associated chills and nausea over the past couple of days. Denies hematuria, urinary frequency/urgency/hesitancy, dysuria, vomiting, abdominal pain, fevers. Denies any possible precipitating musculoskeletal injury. Related Data Previous Rx's Medication Instructions Recorded tamsulosin 0.4 mg capsule (Flomax) 0.4 mg PO DAILY 5 days #5 caps 06/03/21 levofloxacin 500 mg tablet 500 mg PO DAILY 7 days #7 tabs 06/07/21 oxycodone 10 mg tablet 5 mg PO TID PRN pain (scale score 06/07/21 4-6) #15 tabs naproxen 500 mg tablet (Naprosyn) 500 mg PO BID PRN pain 5 days #10 09/22/21 tabs naproxen 500 mg tablet 500 mg PO BID PRN pain 7 days #14 09/25/21 tabs naproxen 500 mg tablet 500 mg PO BID PRN pain 7 days #14 09/25/21 tabs phenazopyridine 100 mg tablet 100 mg PO TID PRN spasm 4 days #12 09/25/21 (Pyridium) tabs phenazopyridine 100 mg tablet 100 mg PO TID PRN spasm 4 days #12 09/25/21 (Pyridium) tabs tamsulosin 0.4 mg capsule 0.4 mg PO BEDTIME 14 days #14 caps 09/25/21 tamsulosin 0.4 mg capsule 0.4 mg PO BEDTIME 14 days #14 caps 09/25/21 tramadol 50 mg tablet 50 mg PO Q6H PRN pain (scale score 09/25/21 1-3) #8 tabs tramadol 50 mg tablet 50 mg PO Q6H PRN pain (scale score 09/25/21 1-3) #8 tabs sulfamethoxazole 400 1 tab PO BEDTIME 90 days #90 tabs 10/10/21 mg-trimethoprim 80 mg tablet (Bactrim) tamsulosin 0.4 mg capsule 0.4 mg PO BEDTIME #14 caps 12/01/21 Allergies Allergy/AdvReac Type Severity Reaction Status Date / Time No Known Allergies Allergy Verified 10/10/21 13:10 Review of Systems Review of Systems: Constitutional: Positive chills No weight loss, fever, weakness or fatigue. Skin: No rash or itching. Cardiovascular: No chest pain, chest pressure or chest discomfort. No palpitations or pedal edema. Respiratory: No shortness of breath, cough or sputum production. Gastrointestinal: Positive nausea. Positive flank pain. No vomiting or diarrhea. No abdominal pain or blood in stool. Genitourinary: No burning micturition. No urinary frequency or incontinence. Musculoskeletal: No muscle pain, back pain, joint pain or stiffness. Psychiatric: No depression or anxiety. Yes all other systems are reviewed and are negative PMFSH Past Medical History Attestation statement: The following information was validated with the patient. Source: old records reviewed Medical History Hernandez's palsy Surgical History No pertinent past surgical history Family History Family History Father CKD (chronic kidney disease) Mother CHF (congestive heart failure) Coronary artery disease Diabetes Social History Social History Alcohol intake: current Alcohol intake frequency: a few times a month Alcohol type: hard liquor Patient Tobacco Use Status: Former Tobacco user Quit Date: week ago Tobacco use type: Cigarette Second Hand Smoke Exposure: No Use of substances other than those prescribed or required for medical reasons: Yes Substance Use Type: Marijuana Substance Use Frequency: Socially Last Used Substance: Days (ago) Any prior treatment program specific to substance use: No Advance Directives: Yes Advance Directives on File: Yes Advance Directives Date on File: 06/06/21 Patient : No service: No Current occupational status: employed Physical Exam Vital Signs: Vital Signs: Last Vital Signs Temp 98.4 F 12/01/21 07:49 Pulse 84 12/01/21 07:49 Resp 18 12/01/21 07:49 BP 103/59 L 12/01/21 07:49 Pulse Ox 98 12/01/21 07:49 O2 Del Method 12/01/21 07:49 BMI result Body Mass Index 28.3 Appearance: Alert.?Oriented to person, place and time. No acute distress.?Normal affect. Eyes: Pupils equal, round and reactive to light.? ENT: Pharynx normal.?? Neck: Normal inspection.? Neck supple.?? CVS: Heart sounds normal. Normal heart rate and rhythm.? Pulses normal.?? Respiratory: No respiratory distress.? Lung sounds clear to auscultation bilaterally?? Abdomen: Soft and non-tender. Normoactive bowel sounds. Bilateral CVA tenderness Skin: Skin warm and dry.? Normal skin color.? Extremities: No lower extremity edema.? Neuro: Moves all extremities spontaneously. Sensation intact bilaterally. Amb ulates with normal steady gait. Course Course Course Narrative: Patient is a 36-year-old female with a past medical history of Hernandez's palsy, nephrolithiasis who presents emergency department for evaluation of bilateral flank pain. She is overall well-appearing. Has trialed Tylenol without improv ement in her pain. Pain is currently 6/10. Offered pain medication at this time but declines. Vital signs are stable, no tachycardia or fever. Plan for CBC, CMP, CT ABD/pelvis without contrast, ondansetron sublingual for nausea, urinalysis. Reevaluation(s) Reevaluation #1: CBC and CMP are overall unremarkable. Urinalysis reveals trace leuk esterase but no infectious symptoms, and microscopic hematuria. CT of the abdomen and pelvis reveals moderate obstruction the left urinary collecting system down to the proximal ureter with progressive stone disease, just beyond the UPJ stones measure up to 5 mm, but may be closer to 1-2 mm each. Consulted with Dr. Wagner, urologist patient will follow-up outpatient. Will send patient home with a prescription for tamsulosin. Reviewed worrisome signs and symptoms to return back to the emergency department for. All questions were answered, patient was discharged home in stable condition. Time: 12:50 [facility] - Female Genitourinary Medical Records Attestation: I reviewed the patient's medical records. Lab Data Attestation: I reviewed the patient's lab results. Result diagrams: 12/01/21 10:19 12/01/21 10:19 Labs: Lab Results 12/01/21 12/01/21 12/01/21 Range/Units 10:19 10:19 10:19 WBC 6.7 (4.8-10.8) X10*3/uL RBC 4.56 (4.20-5.50) X10*6/uL Hgb 12.1 (12.0-16.0) g/dl Hct 37.5 (37.0-47.0) % MCV 82.2 (80.0-98.0) fL MCH 26.5 L (27.0-33.0) pg MCHC 32.3 (31.0-35.0) g/dl RDW 14.3 (11.0-16.0) % Plt Count 338 (160-400) X10*3/uL MPV 9.7 (9.4-12.3) fL Immature Gran % (Auto) 0.1 (0.0-0.4) % Neut % (Auto) 51.2 (45-73) % Lymph % (Auto) 35.6 (20-40) % [place] % (Auto) 7.4 (2-11) % Eos % (Auto) 5.0 H (0-4) % Baso % (Auto) 0.7 (0-2) % Lymph # (Auto) 2.4 (1.2-4.9) X10*3/uL [place] # (Auto) 0.5 (0.1-1.2) X10*3/uL Eos # (Auto) 0.3 (0.0-0.4) X10*3/uL Baso # (Auto) 0.1 (0.0-0.2) X10*3/uL Abs Immat Gran (auto) 0.01 (0.00-0.03) X10*3/uL Absolute Neuts (auto) 3.4 (2.0-8.3) x10*3/uL Absolute Nucleated RBC 0.000 (0.0-0.012) X10*3/uL Nucleated RBC % (auto) 0.0 (0.0-0.2) /100WBC Sodium 140 (135-145) mmol/L Potassium 4.3 (3.3-5.1) mmol/L Chloride 109 H (96-108) mmol/L Carbon Dioxide 23 (22-29) mmol/L Anion Gap 12 (12-20) BUN 14 (9-16) mg/dL Creatinine 0.78 (0.5-1.4) mg/dL Estim Creat Clear Calc 96.1 Estimated GFR > 60 Random Glucose 88 (60-115) mg/dL Calcium 9.0 (8.4-10.2) mg/dL Total Bilirubin 0.3 (0.0-1.0) mg/dL AST 19 (5-31) U/L ALT 23 (0-31) U/L Alkaline Phosphatase 109 D (39-117) U/L Total Protein 6.6 (6.5-8.0) g/dL Albumin 3.9 (3.5-5.0) g/dL Beta HCG, Quant < 2 mIU/mL Urine Color Yellow Urine Appearance Clear Urine pH 6.5 (5.0-9.0) Ur Specific [place] 1.015 (1.005-1.025) Urine Protein Negative (Neg-Trace) mg/dL Urine Glucose (UA) Negative (Negative) mg/dL Urine Ketones Negative (Negative) mg/dL Urine Blood Negative (Negative) Urine Nitrite Negative (Negative) Ur Leukocyte Esterase Trace H (Negative) Urine RBC 3-5 H (0-2) /HPF Urine WBC 0-5 (0-5) /HPF Ur Squamous Epith Cells 6-10 (0-2) /HPF Urine Bacteria Trace (None Seen) Hyaline Casts 0-2 (0-2) /LPF Imaging Data CT scan - abdomen: Radiologist's impression: CT/CT abdomen pelvis wo IV con IMPRESSION: Moderate obstruction of the left urinary collecting system down to the proximal ureter as above. Progressive stone disease within the left kidney. ? Incidental right-sided 3 cm dermoid. Discharge Plan Discharge Clinical Impression: Renal colic Patient Disposition: Home, Self-Care Instructions: Kidney Stones (ED), Renal Colic (ED) Additional Instructions: As we discussed, you should receive contact from Dr. Wagner's office regarding follow-up hopefully early next week. Be sure to stay well hydrated, in given a prescription for tamsulosin to take once daily at night. You can take ibuprofen 200 mg, 3 tablets (600mg) every 6-8 hours as needed for pain, in addition to Tylenol 500 mg, 2 tablets (1,000mg) every 4-6 hours as needed for pain, but not to exceed 3 doses daily (3,000mg). Return to the emergency department any new or worsening symptoms or concerns. ? Prescriptions: New tamsulosin 0.4 mg capsule 0.4 mg PO BEDTIME Qty: 14 0RF No Action naproxen [Naprosyn] 500 mg tablet 500 mg PO BID PRN (Reason: pain) 5 Days Qty: 10 0RF tamsulosin [Flomax] 0.4 mg capsule 0.4 mg PO DAILY 5 Days Qty: 5 0RF Label Comments: PRESCRIBED 2 DAYS AGO ON 06/03/21 levofloxacin 500 mg tablet 500 mg PO DAILY 7 Days Qty: 7 0RF oxycodone 10 mg tablet 5 mg PO TID PRN (Reason: pain (scale score 4-6)) Qty: 15 0RF phenazopyridine [Pyridium] 100 mg tablet 100 mg PO TID PRN (Reason: spasm) 4 Days Qty: 12 0RF tramadol 50 mg tablet 50 mg PO Q6H PRN (Reason: pain (scale score 1-3)) Qty: 8 0RF tamsulosin 0.4 mg capsule 0.4 mg PO BEDTIME 14 Days Qty: 14 0RF naproxen 500 mg tablet 500 mg PO BID PRN (Reason: pain) 7 Days Qty: 14 0RF phenazopyridine [Pyridium] 100 mg tablet 100 mg PO TID PRN (Reason: spasm) 4 Days Qty: 12 0RF tramadol 50 mg tablet 50 mg PO Q6H PRN (Reason: pain (scale score 1-3)) Qty: 8 0RF tamsulosin 0.4 mg capsule 0.4 mg PO BEDTIME 14 Days Qty: 14 0RF naproxen 500 mg tablet 500 mg PO BID PRN (Reason: pain) 7 Days Qty: 14 0RF sulfamethoxazole-trimethoprim [Bactrim] 400-80 mg tablet 1 tab PO BEDTIME 90 Days Qty: 90 0RF
[2021-12-01 10:26] LABS: MANUAL DIFF FLAG NO
[2021-12-01 10:27] LABS: Appearance Urine Clear; Basophils Absolute Auto 0.1 X10*3/uL (0.0-0.2); Basophils Percent Auto 0.7 % (0-2); Color Urine Yellow; Eosinophils Absolute Auto 0.3 X10*3/uL (0.0-0.4); Glucose Urine UA Negative (Negative); Hematocrit 37.5 % (37.0-47.0); Hemoglobin 12.1 g/dl (12.0-16.0); Imm Gran Abs Auto 0.01 X10*3/uL (0.00-0.03); Imm Gran Pct Auto 0.1 % (0.0-0.4); Leukocyte Esterase Urine Trace (Negative); Lymphocytes Absolute Auto 2.4 X10*3/uL (1.2-4.9); Lymphocytes Percent Auto 35.6 % (20-40); Mean Corpuscular HGB Conc 32.3 g/dl (31.0-35.0); Mean Corpuscular Hemoglobin 26.5 pg (27.0-33.0); Mean Corpuscular Volume 82.2 fL (80.0-98.0); Mean Platelet Volume 9.7 fL (9.4-12.3); Monocytes Absolute Auto 0.5 X10*3/uL (0.1-1.2); Monocytes Percent Auto 7.4 % (2-11); Neutrophils Absolute Auto 3.4 x10*3/uL (2.0-8.3); Neutrophils Percent Auto 51.2 % (45-73); Nitrite Urine Negative (Negative); PH 6.5 (5.0-9.0); Platelet Count 338 X10*3/uL (160-400); Red Blood Count 4.56 X10*6/uL (4.20-5.50); Red Cell Distribution Width 14.3 % (11.0-16.0); Specific Gravity - Urine 1.015 (1.005-1.025); UMIC TRIGGER UACC YES; Urine Blood Negative (Negative); Urine Ketones Negative (Negative); Urine Protein Negative (Neg-Trace); White Blood Count 6.7 X10*3/uL (4.8-10.8)
[2021-12-01 10:33] LABS: Bacteria Urine Trace (None Seen); Hyaline Casts Urine 0-2 /LPF (0-2); WBC Urine 0-5 /HPF (0-5)
[2021-12-01] MEDS: Ondansetron ODT 4 MG TAB.RAPDIS TRANSLINGU (10:41)
[2021-12-01 10:42] LABS: Alanine Aminotransferase 23 U/L (0-31); Albumin Level 3.9 g/dL (3.5-5.0); Alkaline Phosphatase 109 U/L (39-117); Anion Gap 12 (12-20); Aspartate Amino Transferase 19 U/L (5-31); Bilirubin Total 0.3 mg/dL (0.0-1.0); Blood Urea Nitrogen 14 mg/dL (9-16); Carbon Dioxide 23 mmol/L (22-29); Chloride 109 mmol/L (96-108); Creatinine Clr Calc Pharmacy 96.1; Estimated Glomerular Filt Rate > 60; Glucose Random 88 mg/dL (60-115); Potassium 4.3 mmol/L (3.3-5.1); Sodium 140 mmol/L (135-145); Total Protein 6.6 g/dL (6.5-8.0)
[2021-12-01 11:14] LABS: HCG Quantitative < 2 mIU/mL
== END 2021-12-01 13:47 | disposition home or self-care (01) ==
PROVIDERS: Nurse Practitioner Family; Emergency Provider Emergency Medicine Emergency Medical Services
DX: N20.2 Calculus of kidney with calculus of ureter (principal); R31.29 Other microscopic hematuria; D27.0 Benign neoplasm of right ovary; R10.9 Unspecified abdominal pain; Z87.442 Personal history of urinary calculi
CPT/HCPCS: 36415; 74176; 80053; 81001; 84702; 85025; 99284

== ENCOUNTER 2021-12-04 16:46 | Day surgery (SDC) | payer OTHER, SELFPAY ==
--- NOTE | ~2021-12-04 | FL_ITS ---
EXAMINATION: XR FLUOROSCOPY WITH IMAGES CLINICAL INFORMATION: Left hydronephrosis. Urinary tract calculi. COMPARISON: CT abdomen and pelvis 12/01/2021 TECHNIQUE: Fluoroscopy performed by Dr. Yonis Wagner. Fluoroscopy time: 20 seconds. Cumulative Dose: 7.15 mGy. Images: 1. FINDINGS: There is a catheter/stent in the left urinary tract. There is vague lobulated density lower pole likely corresponding to the calculi on recent CT. FL/FL guidance in OR IMPRESSION: Fluoroscopy for urologic procedure.
--- NOTE | 2021-12-04 17:03 | MHC.SHP ---
Pre-Procedural Eval Section A Date of Service: 12/04/21 The patient is an INPATIENT: No Changes since office visit: No Cold of Flu in the past 2 weeks, No New Medical Problems, No Changes in Medication and No Patient answered all questions The History & Physical has been completed within 30 days and I have reviewed it.: No Section B Chief Complaint: kidney stone Details of Present Illness: left hydroureteronephrosis Relevant Family History (Specify if Yes): No Relevant Social History: None Present Medications: see Short Stay Collaborative assessment Medical History: No relevant PMH History of Previous Operations: Relevant previous surgery/procedure and date(s) Allergies: Allergies Allergy/AdvReac Type Severity Reaction Status Date / Time No Known Allergies Allergy Verified 10/10/21 13:10 Review of Systems Sugical H&P ROS: Negative: Constitution, Cardiovascular, Respiratory, Neurological, Psychiatric, Hem-Onc, Allergic/Immunologic, Gastrointestinal, Genitourinary, Musculoskeletal, Integumentary, Endocrine and Eyes/Ears/Nose/Throat Exam Surgical H&P Exam: Normal: HEENT, Normal: Heart, Normal: Lungs, Normal: Extremities, Normal: Abdomen, Normal: Skin and Normal: Neurological Plan Diagnosis/Plan: Unchanged ( left retrograde, left ureteroscopy with laser lithotripsy stent placement) I have reviewed the history and physical and performed a pertinent physical examination on my patient. No changes have occurred unless specified.
[2021-12-04 17:31] VITALS: BP 119/64; PULSE 86; RESP 18; TEMP 36.5; O2SAT 98; BMI 27.8
[2021-12-04 17:42] LABS: Urine Pregnancy NEGATIVE (NEGATIVE)
[2021-12-04 17:43] LABS: UPreg QC Valid YES
--- NOTE | 2021-12-04 17:56 | HO.ANESPROP2 ---
HPI - Anesthesia Eval Consult details Narrative: left ureter stone PMFSH Active Problems Active Problems: All Active Problems (Updated 12/02/21 @ 00:01 by Mica Zavaleta) Calcium oxalate stones (Acute) Past Medical History Medical History Hernandez's palsy Family History Family History Father CKD (chronic kidney disease) Mother CHF (congestive heart failure) Coronary artery disease Diabetes Family history of problems with anesthesia: No Surgical History Surgical History No pertinent past surgical history History of Problems with Anesthesia: No Social History Social History Alcohol intake: current Alcohol intake frequency: a few times a month Alcohol type: hard liquor Patient Tobacco Use Status: Former Tobacco user Quit Date: week ago Tobacco use type: Cigarette Second Hand Smoke Exposure: No Use of substances other than those prescribed or required for medical reasons: Yes Substance Use Type: Marijuana Are you DNR?: No Advance Directives: Yes Advance Directives on File: Yes Advance Directives Date on File: 06/06/21 service: No Current occupational status: employed Meds Allergies Allergy/AdvReac Type Severity Reaction Status Date / Time No Known Allergies Allergy Verified 10/10/21 13:10 Active Medications: Current Medications Levofloxacin (Levaquin) 500 mg in 100 mls @ 100 mls/hr IV PREOP ONE Stop: 12/04/21 18:01 Exam Exam Date and Time: December 04, 2021 1756 Height,Weight and Vital Signs: Height 5 ft 3 in Weight 71.214 kg Last Vital Signs Temp 97.7 F 12/04/21 17:31 Pulse 86 12/04/21 17:31 Resp 18 12/04/21 17:31 BP 119/64 12/04/21 17:31 Pulse Ox 98 12/04/21 17:31 O2 Del Method 12/04/21 17:31 Pertinent Lab Results Pertinent Lab Results: Laboratory Tests 12/04/21 16:48 Urine Test NEGATIVE Airway Mallampati Class: I Neck ROM: Full Loose/Missing/Broken Teeth: No Heart: RRR Lungs: CTA Assessment and Plan Assessment Anesthesia Assessment: Anesthesia Plan Discussed and Chart Reviewed Final Anesthetic Review Family History of Problems with Anesthesia: No History of Problems with Anesthesia: No NPO: Yes ASA Class: I and Emergency Final Preanesthetic Review: No Changes in Pt Med Stat, Meds/Allgs Chart Reviewed, Consent Obtained/Reviewed and Anes Risks/Benef Reviewed Patient Risk: Low Procedure Risk: Low Anesthetic Plan Anesthetic Plan: GA Disposition: Standard PACU
--- NOTE | 2021-12-04 18:49 | P.OP_ITS ---
Operative Note Operative Note Date of Service: 12/04/21 Narrative: PreOperative Diagnosis: left lower pole renal stones Post Operative Diagnosis: left lower pole renal stone submucosal, left lower pole biofilm with fragmentation Procedure: - cystoscopy, left retrograde - left dilatation of ureteric orifice under fluoroscopy - left ureteroscopy, laser lithotripsy Surgeon: Dr Yonis Wagner Anesthesia: General Indications for procedure: reason presentation to emergency room with left-sided flank pain. CT scan shows question of debris in left lower pole. Prior procedure for removal of large stone. Mixed calcium oxalate with carbonate apatite Procedure: After informed consent was verified patient was brought to the operating placed in supine position. Anesthesia was administered per protocol. Patient was placed in modified dorsal lithotomy position and prepped and draped in a sterile fashion. Safety pause time-out and side of surgery confirmed. Antibiotics confirmed. 22 Icelandic cystoscope was inserted per urethra. Bladder was normal in its entirety. Both ureteric orifices were in normal position. The left ureteric orifice was cannulated and a retrograde examination was performed. no filling defects seen within ureter.. A Sensor guidewire was placed up to the level of the renal pelvis under fluoroscopy. The rigid cystoscope was removed and the inner cannula of ureteric access sheath was used under fluoroscopy to dilate the ureteric orifice. The ureteric access sheath was placed and the inner cannula with access wire removed. The digital flexible ureteral scope was placed. Stone debris encountered lower pole. This was the resection through scope. There was a stone imbedded under the mucosa in the lower pole. Using a 265 laser this was broken into small pieces. The area was irrigated. There was area of biofilm which may been causing issues in this was irrigated. Attempt was used to basket however pieces were very small. Decision was made not to place stent. The bladder was emptied. The patient tolerated the procedure well and was extubated in the operating room, and transferred in stable condition to the recovery area. Pathology: None Drains: none
[2021-12-04 19:00] VITALS: BP 127/76; PULSE 73; RESP 17; TEMP 36.2; O2SAT 100
[2021-12-04 19:05] VITALS: BP 111/63; PULSE 72; RESP 16; O2SAT 100
[2021-12-04 19:10] VITALS: BP 120/75; PULSE 66; RESP 18; O2SAT 100
[2021-12-04 19:15] VITALS: BP 122/79; PULSE 79; RESP 18; O2SAT 99
[2021-12-04 19:30] VITALS: BP 117/76; PULSE 82; RESP 18; TEMP 36.1; O2SAT 98
== END 2021-12-04 20:22 | disposition home or self-care (01) ==
PROVIDERS: Visit Provider Urology
PROC: (CPT 52353; principal; 2021-12-04 14:20)
DX: N20.0 Calculus of kidney (principal); G51.0 Bell's palsy
CPT/HCPCS: 52353; 81025; C1758; C1769; J1100; J1956; J2405; J3010; Q9965

== ENCOUNTER 2021-12-22 14:42 | Outpatient (REF) | payer OTHER, SELFPAY ==
[2021-12-22 16:47] LABS: Appearance Urine Clear; Color Urine Yellow; Glucose Urine UA Negative (Negative); Leukocyte Esterase Urine Negative (Negative); Nitrite Urine Negative (Negative); PH 6.5 (5.0-9.0); Specific Gravity - Urine 1.015 (1.005-1.025); Urine Blood Negative (Negative); Urine Ketones Negative (Negative); Urine Protein Negative (Neg-Trace)
[2021-12-22 16:52] LABS: Bacteria Urine None Seen (None Seen); Hyaline Casts Urine 0-2 /LPF (0-2); WBC Urine 0-5 /HPF (0-5)
== END 2021-12-22 14:43 | disposition home or self-care (01) ==
LOC: HO.HMGCLDS 14:42
PROVIDERS: Visit Provider Urology
DX: N20.0 Calculus of kidney (principal)
CPT/HCPCS: 81001; 87086

== ENCOUNTER 2021-12-26 14:59 | Outpatient (REF) | payer OTHER, SELFPAY ==
--- NOTE | ~2021-12-26 | US_ITS ---
EXAMINATION: US RETROPERITONEAL LIMITED (RENAL ONLY) CLINICAL INFORMATION: Kidney stone. COMPARISON: Previous CT of the abdomen and pelvis November 2021 and renal ultrasound October 2021 TECHNIQUE: Grayscale and color imaging of the kidneys FINDINGS: RIGHT KIDNEY: 10.4 x 5.2 x 5.4 cm (SAG x AP x TRV). The kidney is normal in size, contour, and echogenicity. Renal cortical thickness is normal. No calculi or focal parenchymal lesions. No hydronephrosis. LEFT KIDNEY: 11.7 x 5.8 x 5.5 cm (SAG x AP x TRV). The kidney is normal in size, contour, and echogenicity. Renal cortical thickness is normal. There are left lower pole stones measuring 1 x 0.5 x 0.8 cm, 0.5 x 0.3 x 0.5 cm and 0.9 x 0.6 cm. There is mild left hydronephrosis similar to previous exam. US/US renal BI IMPRESSION: Normal right kidney. Left renal stones and left hydronephrosis. Appearance is similar to October 2021 exam..
== END 2021-12-26 15:00 | disposition home or self-care (01) ==
LOC: HO.US 14:59
PROVIDERS: Visit Provider Urology
DX: N20.0 Calculus of kidney (principal)
CPT/HCPCS: 76775

== ENCOUNTER → 2022-01-17 11:04 | Outpatient (BNVA) | payer OTHER, SELFPAY | PROVIDERS: Visit Provider Urology | DX: N12 Tubulo-interstitial nephritis, not specified as acute or chronic (principal); N20.0 Calculus of kidney | CPT/HCPCS: 99212 ==

== ENCOUNTER 2022-02-27 16:52 | Observation (INO) | payer OTHER, SELFPAY ==
--- NOTE | ~2022-02-27 | MR_ITS ---
EXAMINATION: MRA THORACIC SPINE WITHOUT AND WITH CONTRAST CLINICAL INFORMATION: Numbness in legs. Follow-up noncontrast MRI. COMPARISON: Thoracic spine MRI 02/28/2022. TECHNIQUE: MRA of the thoracic spine was performed without and with contrast. Additional pulse sequences were also acquired. A total of 20 mL Gadavist was intravenously administered. FINDINGS: No abnormal arterial enhancement is seen within the thoracic spinal canal. No enlarged arteries are noted. The aorta is normal in caliber. There is left-sided hydronephrosis with focal pelviectasis. Intra-abdominal contents are otherwise unremarkable. MR/MR thoracic spine wo/w con IMPRESSION: No abnormal arterial enhancement is seen within the thoracic spinal canal. Left-sided hydronephrosis with focal pelviectasis. Consider renal ultrasound evaluation.
--- NOTE | ~2022-02-27 | MR_ITS ---
EXAMINATION: MR CERVICAL SPINE WITHOUT AND WITH CONTRAST MR THORACIC SPINE WITHOUT AND WITH CONTRAST CLINICAL INFORMATION: Leg weakness. COMPARISON: There are no prior studies available for comparison. TECHNIQUE: MRI scans of the cervical and thoracic spine were obtained using routine sequences without and with contrast. Intravenous contrast: Gadavist 10 mL. FINDINGS: MRI Cervical Spine: VERTEBRAL BODIES AND PARASPINAL SOFT TISSUES: There is a slight levoscoliosis, and there is a slight reversal of the normal cervical lordosis. Intervertebral disc heights are maintained. The vertebral bodies have normal height and contour and no fractures are demonstrated. Marrow signal is homogenous. There is no abnormal osseous enhancement following intravenous contrast administration. The regional soft tissue structures are unremarkable. CERVICOMEDULLARY JUNCTION AND VISUALIZED POSTERIOR FOSSA: The craniocervical and posterior fossa structures are normal. Accounting for artifact, spinal cord signal appears normal. There is no abnormal enhancement of the spinal cord following intravenous contrast administration. SPINAL LEVELS: The facet joints appear normal throughout the cervical spine. Posterior disc protrusion is no spinal cord compression or central stenosis. The neural foramina are patent. MRI Thoracic Spine: VERTEBRAL BODIES AND PARASPINAL STRUCTURES: There is anatomic alignment of the vertebral bodies. Intervertebral disc heights are maintained and have normal signal. The vertebral bodies have normal height and contour, and no fractures demonstrated. Overall, marrow signal is homogenous. There is no abnormal osseous enhancement following intravenous contrast administration. The conus is at the level of L2. There is focal abnormal T2 and STIR signal in the spinal cord dorsally just to the right of midline, at the level of the superior endplate of T7 (image 7/13, sequences 9 and 10). Following intravenous contrast administration there is equivocal punctate enhancement in this region (image 6/13, series 12). No other abnormal cord enhancement is demonstrated. 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 SPINAL LEVELS: Posterior disc contours appear normal throughout the thoracic spine. There is no spinal cord compression or central stenosis, and the neural foramina are patent. MR/MR cervical spine wo/w con IMPRESSION: MRI cervical spine: 1. There are no acute fractures or subluxations. 2. There is no spondylosis or facet arthropathy. 3. The spinal cord has normal signal with no abnormal enhancement. 4. There is no abnormal enhancement of the cortical osseous structures. MRI thoracic spine: 1. There is a small focus of increased signal with enhancement in the spinal cord dorsally at the level of T7, and there are serpiginous vessels along the dorsal aspect of the spinal cord extending from T7 caudad. 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 This could be further evaluated with spinal MRA or conventional spinal angiogram. This critical result was discussed with Yahaira Wright by telephone on 02/28/2022 at 9:58 PM and it was ascertained that the content and urgency of the report was understood at the time of direct communication.
--- NOTE | ~2022-02-27 | CT_ITS ---
EXAMINATION: CT HEAD WITHOUT CONTRAST CLINICAL INFORMATION: Dizziness and paresthesia lower extremity with weakness COMPARISON: None TECHNIQUE: Imaging was performed from the skull base to vertex without intravenous administration of contrast. This CT examination was performed using dose optimization techniques as appropriate, variously including the following: *Automated exposure control *Adjustment of mA and/or kV according to patient size (this includes techniques or standardized protocols for targeted exams where dose is matched to indication/reason for exam; i.e. extremities or head) *Use of iterative reconstruction technique Total exam dose length product: 665 mGy-cm FINDINGS: No intra or extra-axial fluid collection, hemorrhage, or mass. No ventriculomegaly. No midline shift or herniation. Basal cisterns are patent. Peña-white matter differentiation is maintained. No territorial encephalomalacia. No significant volume loss. There is no abnormal attenuation within the brain parenchyma. No calvarial fracture or soft tissue abnormality. The mastoid air cells and visualized portions of the paranasal sinuses are well aerated. CT/CT head/brain wo IV con IMPRESSION: 1. No acute intracranial pathology.
--- NOTE | ~2022-02-27 | XR_ITS ---
EXAMINATION: XR CHEST CLINICAL INFORMATION: dizziness/paresthesias to lower extremity/weakness COMPARISON: None TECHNIQUE: 2 views of the chest were obtained. FINDINGS: No significant abnormality is noted involving the heart, lungs, mediastinum, bony thorax or soft tissues. XR/XR chest 2V IMPRESSION: Unremarkable examination.
--- NOTE | 2022-02-27 17:39 | ECG_ITS ---
Test Reason : NUMBNESS Blood Pressure : / mmHG Vent. Rate : 060 BPM Atrial Rate : 060 BPM P-R Int : 180 ms QRS Dur : 086 ms QT Int : 402 ms P-R-T Axes : 048 042 035 degrees QTc Int : 402 ms Normal sinus rhythm with sinus arrhythmia Normal ECG No previous ECGs available Referred By: Caitlyn Mesa Electronically Signed By:YON DE DIOS
[2022-02-27 17:45] VITALS: BP 127/70; PULSE 72; RESP 18; TEMP 36.7; O2SAT 98; BMI 28.0
--- NOTE | 2022-02-27 17:45 | ED.NEUROSD ---
HPI - Neuro Symptoms/Deficit General Chief Complaint: General Medical Stated Complaint: numbness from waist down Time Seen by Provider: 02/27/22 17:51 Related Data Previous Rx's Medication Instructions Recorded ascorbic acid (vitamin C) 1,000 mg 1 g PO DAILY 90 days #90 tabs 12/15/21 tablet ibuprofen 600 mg tablet 600 mg PO TID PRN pain 10 days #30 12/26/21 tabs sulfamethoxazole 400 1 tab PO BEDTIME 90 days #90 tabs 01/17/22 mg-trimethoprim 80 mg tablet (Bactrim) Allergies Allergy/AdvReac Type Severity Reaction Status Date / Time No Known Allergies Allergy Verified 03/01/22 17:45 [facility] Past Medical History Medical History Hernandez's palsy Surgical History No pertinent past surgical history Family History Family History Father CKD (chronic kidney disease) Mother CHF (congestive heart failure) Coronary artery disease Diabetes Social History Social History Household Members: Spouse and Children Housing: House Do you presently have visiting nurse or other home services: No Alcohol intake: never Patient Tobacco Use Status: Never used Tobacco Tobacco use type: Cigarette Smoked in Last 30 Days: No e-Cigarette/Vaping Use: Never Used Patient Interested in Nicotine Replacement: No Patient Given Instructions on How to Stop Smoking: No Second Hand Smoke Exposure: No Use of substances other than those prescribed or required for medical reasons: Yes Substance Use Type: Marijuana Substance Use Frequency: Daily Last Used Substance: Days (ago) Last Used Substance Other:: saturday Currently Displaying Signs/Symptoms of Drug Intoxication Withdrawal: No Any prior treatment program specific to substance use: No Have you been hit, kicked, punched, or otherwise hurt by someone within the past year? If so, by whom?: No Do you feel safe in your current relationship?: No Is there a partner from a previous relationship who is making you feel unsafe now?: No Are you made to feel afraid or neglected: No Advance Directives: Yes Advance Directives Information Provided: No Advance Directives on File: Yes Advance Directives Date on File: 06/06/21 Do you have thoughts of harming others: None Do you have a plan to hurt others: No Plan Recently lost weight without trying: No Nutrition Risks: No Nutritional Risk Patient : No : No Poor oral hygiene: No service: No Current occupational status: employed Physical Exam Vital Signs: Vital Signs: Last Vital Signs Temp 97.7 F 03/01/22 19:14 Pulse 66 03/01/22 19:14 Resp 17 03/01/22 19:14 BP 113/58 L 03/01/22 19:14 Pulse Ox 99 03/01/22 19:14 O2 Del Method 03/01/22 19:14 BMI result Body Mass Index 28.0 Course Course Course Narrative: 17:40pm - 46yoF presenting to the ED c c/o of dizziness everytime she looks up and now bilateral lower extremity leg numbness/weakness x 3 days or longer. Also reports when she has bowel habits she cannot feel having the bowel movements. She also had episode of urinary incontinence. Reports subjective fevers/chills. She denies any headaches, falls, back pain. Recently recovered from COVID approximately 4 weeks ago. On exam patient is unable to ambulate having difficulty despite help with myself and the nurse in triage. Therefore at this time she will be sent to the main ER for further evaluation treatment. Plan: Labs, chest x-ray, EKG and CT scan of brain without contrast ordered at this time. Medications Administered Generic Name Dose Route Start Last Admin Trade Name Freq PRN Reason Stop Dose Admin Dextrose/Sodium Chloride 1,000 mls @ 100 mls/hr 02/28/22 10:15 03/01/22 16:48 D51/2ns IVCONT 100 mls/hr .Q10H CARLOS Administration Lorazepam 0.25 mg 03/01/22 11:27 03/01/22 12:08 Lorazepam 0.5 Mg Tablet PO 0.25 mg Q6H PRN Administration Anxiety Sodium Chloride 3 ml 02/28/22 16:00 03/01/22 20:12 0.9 % Sodium Chloride Flush 3 Ml Syringe IVFLUSH 3 ml QSHIFT CARLOS Administration Discontinued Medications Generic Name Dose Route Start Last Admin Trade Name Freq PRN Reason Stop Dose Admin Gadobutrol 10 ml 02/28/22 20:34 02/28/22 20:35 Gadobutrol 10 Ml Vial IVPUSH 02/28/22 20:35 10 ml ONCE ONE Administration Gadobutrol 10 ml 03/01/22 13:51 03/01/22 13:51 Gadobutrol 10 Ml Vial IVPUSH 03/01/22 13:52 10 ml ONCE ONE Administration Gadobutrol 10 ml 03/01/22 13:52 03/01/22 13:52 Gadobutrol 10 Ml Vial IVPUSH 03/01/22 13:53 10 ml ONCE ONE Administration Sodium Chloride 500 mls @ 500 mls/hr 02/27/22 23:45 02/28/22 02:41 Ns IV 02/28/22 00:44 Infused .Q1H CARLOS Infusion Lidocaine HCl 30 ml 02/28/22 00:00 02/28/22 00:23 Lidocaine Hcl 1 % Mpf 30 Ml Vial SUBCUT 02/28/22 00:01 30 ml ONCE ONE Administration Protocol Medical Decision Making Lab Data Result Diagrams: 02/27/22 18:32 02/27/22 18:32 Labs: Lab Results 02/27/22 02/27/22 02/27/22 Range/Units 18:32 18:32 18:32 WBC 6.5 (4.8-10.8) X10*3/uL RBC 4.58 (4.20-5.50) X10*6/uL Hgb 12.1 (12.0-16.0) g/dl Hct 37.2 (37.0-47.0) % MCV 81.2 (80.0-98.0) fL MCH 26.4 L (27.0-33.0) pg MCHC 32.5 (31.0-35.0) g/dl RDW 14.7 (11.0-16.0) % Plt Count 363 (160-400) X10*3/uL MPV 10.1 (9.4-12.3) fL Immature Gran % (Auto) 0.2 (0.0-0.4) % Neut % (Auto) 44.5 L (45-73) % Lymph % (Auto) 41.5 H (20-40) % [place] % (Auto) 9.0 (2-11) % Eos % (Auto) 4.0 (0-4) % Baso % (Auto) 0.8 (0-2) % Lymph # (Auto) 2.7 (1.2-4.9) X10*3/uL [place] # (Auto) 0.6 (0.1-1.2) X10*3/uL Eos # (Auto) 0.3 (0.0-0.4) X10*3/uL Baso # (Auto) 0.1 (0.0-0.2) X10*3/uL Abs Immat Gran (auto) 0.01 (0.00-0.03) X10*3/uL Absolute Neuts (auto) 2.9 (2.0-8.3) x10*3/uL Absolute Nucleated RBC 0.000 (0.0-0.012) X10*3/uL Nucleated RBC % (auto) 0.0 (0.0-0.2) /100WBC ESR (0-20) MM/HR PT 13.2 H (10.0-13.1) SEC INR 1.1 (0.9-1.1) Sodium 141 (135-145) mmol/L Potassium 4.0 (3.3-5.1) mmol/L Chloride 109 H (96-108) mmol/L Carbon Dioxide 24 (22-29) mmol/L Anion Gap 12 (12-20) BUN 15 (9-16) mg/dL Creatinine 0.78 (0.5-1.4) mg/dL Estim Creat Clear Calc 95.7 Estimated GFR > 60 Random Glucose 87 (60-115) mg/dL Calcium 9.5 (8.4-10.2) mg/dL Magnesium 1.8 (1.6-2.6) mg/dL Total Bilirubin 0.5 (0.0-1.0) mg/dL AST 18 (5-31) U/L ALT 18 (0-31) U/L Alkaline Phosphatase 118 H (39-117) U/L Total Protein 6.9 (6.5-8.0) g/dL Albumin 4.2 (3.5-5.0) g/dL Urine Color Urine Appearance Urine pH (5.0-9.0) Ur Specific [place] (1.005-1.025) Urine Protein (Neg-Trace) mg/dL Urine Glucose (UA) (Negative) mg/dL Urine Ketones (Negative) mg/dL Urine Blood (Negative) Urine Nitrite (Negative) Ur Leukocyte Esterase (Negative) CSF Tube Number CSF Volume ML CSF Appearance CSF Color CSF WBC MM*3 CSF RBC MM*3 CSF Lymphocytes % CSF Monocytes % % CSF Appearance (b) CSF Glucose mg/dL CSF Total Protein (15-45) mg/dL CSF C.neoform/gat PCR (Not Detect.) CSF CMV DNA (PCR) (Not Detect.) CSF Enterovirus (PCR) (Not Detect.) CSF E. coli K1 (PCR) (Not Detect.) CSF H. influenzae (PCR) (Not Detect.) CSF HSV I (PCR) (Not Detect.) CSF HSV II (PCR) (Not Detect.) CSF HHV 6 (PCR) (Not Detect.) CSF L.monocytogenes PCR (Not Detect.) CSF N. meningitidis PCR (Not Detect.) CSF Parechovirus (PCR) (Not Detect.) CSF S. agalactiae (PCR) (Not Detect.) CSF S. pneumoniae (PCR) (Not Detect.) CSF VZV (PCR) (Not Detect.) Respiratory Panel [place]in Adenovirus (Rapid PCR) (Not Detect.) B.pert (TEM-PCR) (Not Detect.) B.parapertussis DNA PCR (Not Detect.) C. pneumoniae DNA (PCR) (Not Detect.) Coronavirus OC43 (PCR) (Not Detect.) Coronavirus HKU1 (PCR) (Not Detect.) Coronavirus 229E (PCR) (Not Detect.) Coronavirus NL63 (PCR) (Not Detect.) Human Metapneumovir PCR (Not Detect.) Influenza A (RT-PCR) (Not Detect.) Influenza Type A (PCR) (Negative) Influenza B (RT-PCR) (Not Detect.) Influenza Type B (PCR) (Negative) M. pneumoniae (PCR) (Not Detect.) Parainfluenza 1 (PCR) (Not Detect.) Parainfluenza 2 (PCR) (Not Detect.) Parainfluenza 3 (PCR) (Not Detect.) Parainfluenza 4 (PCR) (Not Detect.) RSV (PCR) (Not Detect.) RSV RNA Qual (PCR) (Negative) Entero/Rhino (PCR) (Not Detect.) SARS-CoV-2 RNA (RT-PCR) (Negative) 1202/27/22 02/27/22 Range/Units 18:32 18:32 20:07 WBC (4.8-10.8) X10*3/uL RBC (4.20-5.50) X10*6/uL Hgb (12.0-16.0) g/dl Hct (37.0-47.0) % MCV (80.0-98.0) fL MCH (27.0-33.0) pg MCHC (31.0-35.0) g/dl RDW (11.0-16.0) % Plt Count (160-400) X10*3/uL MPV (9.4-12.3) fL Immature Gran % (Auto) (0.0-0.4) % Neut % (Auto) (45-73) % Lymph % (Auto) (20-40) % [place] % (Auto) (2-11) % Eos % (Auto) (0-4) % Baso % (Auto) (0-2) % Lymph # (Auto) (1.2-4.9) X10*3/uL [place] # (Auto) (0.1-1.2) X10*3/uL Eos # (Auto) (0.0-0.4) X10*3/uL Baso # (Auto) (0.0-0.2) X10*3/uL Abs Immat Gran (auto) (0.00-0.03) X10*3/uL Absolute Neuts (auto) (2.0-8.3) x10*3/uL Absolute Nucleated RBC (0.0-0.012) X10*3/uL Nucleated RBC % (auto) (0.0-0.2) /100WBC ESR 13 (0-20) MM/HR PT (10.0-13.1) SEC INR (0.9-1.1) Sodium (135-145) mmol/L Potassium (3.3-5.1) mmol/L Chloride (96-108) mmol/L Carbon Dioxide (22-29) mmol/L Anion Gap (12-20) BUN (9-16) mg/dL Creatinine (0.5-1.4) mg/dL Estim Creat Clear Calc Estimated GFR Random Glucose (60-115) mg/dL Calcium (8.4-10.2) mg/dL Magnesium (1.6-2.6) mg/dL Total Bilirubin (0.0-1.0) mg/dL AST (5-31) U/L ALT (0-31) U/L Alkaline Phosphatase (39-117) U/L Total Protein (6.5-8.0) g/dL Albumin (3.5-5.0) g/dL Urine Color Yellow Urine Appearance Clear Urine pH 6.0 (5.0-9.0) Ur Specific [place] 1.025 (1.005-1.025) Urine Protein Negative (Neg-Trace) mg/dL Urine Glucose (UA) Negative (Negative) mg/dL Urine Ketones 15 (Negative) mg/dL Urine Blood Negative (Negative) Urine Nitrite Negative (Negative) Ur Leukocyte Esterase Negative (Negative) CSF Tube Number CSF Volume ML CSF Appearance CSF Color CSF WBC MM*3 CSF RBC MM*3 CSF Lymphocytes % CSF Monocytes % % CSF Appearance (b) CSF Glucose mg/dL CSF Total Protein (15-45) mg/dL CSF C.neoform/gat PCR (Not Detect.) CSF CMV DNA (PCR) (Not Detect.) CSF Enterovirus (PCR) (Not Detect.) CSF E. coli K1 (PCR) (Not Detect.) CSF H. influenzae (PCR) (Not Detect.) CSF HSV I (PCR) (Not Detect.) CSF HSV II (PCR) (Not Detect.) CSF HHV 6 (PCR) (Not Detect.) CSF L.monocytogenes PCR (Not Detect.) CSF N. meningitidis PCR (Not Detect.) CSF Parechovirus (PCR) (Not Detect.) CSF S. agalactiae (PCR) (Not Detect.) CSF S. pneumoniae (PCR) (Not Detect.) CSF VZV (PCR) (Not Detect.) Respiratory Panel [place] Adenovirus (Rapid PCR) (Not Detect.) B.pert (TEM-PCR) (Not Detect.) B.parapertussis DNA PCR (Not Detect.) C. pneumoniae DNA (PCR) (Not Detect.) Coronavirus OC43 (PCR) (Not Detect.) Coronavirus HKU1 (PCR) (Not Detect.) Coronavirus 229E (PCR) (Not Detect.) Coronavirus NL63 (PCR) (Not Detect.) Human Metapneumovir PCR (Not Detect.) Influenza A (RT-PCR) (Not Detect.) Influenza Type A (PCR) NEGATIVE (Negative) Influenza B (RT-PCR) (Not Detect.) Influenza Type B (PCR) NEGATIVE (Negative) M. pneumoniae (PCR) (Not Detect.) Parainfluenza 1 (PCR) (Not Detect.) Parainfluenza 2 (PCR) (Not Detect.) Parainfluenza 3 (PCR) (Not Detect.) Parainfluenza 4 (PCR) (Not Detect.) RSV (PCR) (Not Detect.) RSV RNA Qual (PCR) NEGATIVE (Negative) Entero/Rhino (PCR) (Not Detect.) SARS-CoV-2 RNA (RT-PCR) POSITIVE A (Negative) 02/27/22 02/28/22 02/28/22 Range/Units 20:49 00:33 00:33 WBC (4.8-10.8) X10*3/uL RBC (4.20-5.50) X10*6/uL Hgb (12.0-16.0) g/dl Hct (37.0-47.0) % MCV (80.0-98.0) fL MCH (27.0-33.0) pg MCHC (31.0-35.0) g/dl RDW (11.0-16.0) % Plt Count (160-400) X10*3/uL MPV (9.4-12.3) fL Immature Gran % (Auto) (0.0-0.4) % Neut % (Auto) (45-73) % Lymph % (Auto) (20-40) % [place] % (Auto) (2-11) % Eos % (Auto) (0-4) % Baso % (Auto) (0-2) % Lymph # (Auto) (1.2-4.9) X10*3/uL [place] # (Auto) (0.1-1.2) X10*3/uL Eos # (Auto) (0.0-0.4) X10*3/uL Baso # (Auto) (0.0-0.2) X10*3/uL Abs Immat Gran (auto) (0.00-0.03) X10*3/uL Absolute Neuts (auto) (2.0-8.3) x10*3/uL Absolute Nucleated RBC (0.0-0.012) X10*3/uL Nucleated RBC % (auto) (0.0-0.2) /100WBC ESR (0-20) MM/HR PT (10.0-13.1) SEC INR (0.9-1.1) Sodium (135-145) mmol/L Potassium (3.3-5.1) mmol/L Chloride (96-108) mmol/L Carbon Dioxide (22-29) mmol/L Anion Gap (12-20) BUN (9-16) mg/dL Creatinine (0.5-1.4) mg/dL Estim Creat Clear Calc Estimated GFR Random Glucose (60-115) mg/dL Calcium (8.4-10.2) mg/dL Magnesium (1.6-2.6) mg/dL Total Bilirubin (0.0-1.0) mg/dL AST (5-31) U/L ALT (0-31) U/L Alkaline Phosphatase (39-117) U/L Total Protein (6.5-8.0) g/dL Albumin (3.5-5.0) g/dL Urine Color Urine Appearance Urine pH (5.0-9.0) Ur Specific [place] (1.005-1.025) Urine Protein (Neg-Trace) mg/dL Urine Glucose (UA) (Negative) mg/dL Urine Ketones (Negative) mg/dL Urine Blood (Negative) Urine Nitrite (Negative) Ur Leukocyte Esterase (Negative) CSF Tube Number 2 CSF Volume ML CSF Appearance CSF Color CSF WBC MM*3 CSF RBC MM*3 CSF Lymphocytes % CSF Monocytes % % CSF Appearance (b) Clear, Colorless CSF Glucose 59 mg/dL CSF Total Protein 26.7 (15-45) mg/dL CSF C.neoform/gat PCR Not Detected (Not Detect.) CSF CMV DNA (PCR) Not Detected (Not Detect.) CSF Enterovirus (PCR) Not Detected (Not Detect.) CSF E. coli K1 (PCR) Not Detected (Not Detect.) CSF H. influenzae (PCR) Not Detected (Not Detect.) CSF HSV I (PCR) Not Detected (Not Detect.) CSF HSV II (PCR) Not Detected (Not Detect.) CSF HHV 6 (PCR) Not Detected (Not Detect.) CSF L.monocytogenes PCR Not Detected (Not Detect.) CSF N. meningitidis PCR Not Detected (Not Detect.) CSF Parechovirus (PCR) Not Detected (Not Detect.) CSF S. agalactiae (PCR) Not Detected (Not Detect.) CSF S. pneumoniae (PCR) Not Detected (Not Detect.) CSF VZV (PCR) Not Detected (Not Detect.) Respiratory Panel [place] See Note Adenovirus (Rapid PCR) Not Detected (Not Detect.) B.pert (TEM-PCR) Not Detected (Not Detect.) B.parapertussis DNA PCR Not Detected (Not Detect.) C. pneumoniae DNA (PCR) Not Detected (Not Detect.) Coronavirus OC43 (PCR) Not Detected (Not Detect.) Coronavirus HKU1 (PCR) Not Detected (Not Detect.) Coronavirus 229E (PCR) Not Detected (Not Detect.) Coronavirus NL63 (PCR) Not Detected (Not Detect.) Human Metapneumovir PCR Not Detected (Not Detect.) Influenza A (RT-PCR) Not Detected (Not Detect.) Influenza Type A (PCR) (Negative) Influenza B (RT-PCR) Not Detected (Not Detect.) Influenza Type B (PCR) (Negative) M. pneumoniae (PCR) Not Detected (Not Detect.) Parainfluenza 1 (PCR) Not Detected (Not Detect.) Parainfluenza 2 (PCR) Not Detected (Not Detect.) Parainfluenza 3 (PCR) Not Detected (Not Detect.) Parainfluenza 4 (PCR) Not Detected (Not Detect.) RSV (PCR) Not Detected (Not Detect.) RSV RNA Qual (PCR) (Negative) Entero/Rhino (PCR) Not Detected (Not Detect.) SARS-CoV-2 RNA (RT-PCR) Not Detected (Negative) 02/28/22 Range/Units 00:33 WBC (4.8-10.8) X10*3/uL RBC (4.20-5.50) X10*6/uL Hgb (12.0-16.0) g/dl Hct (37.0-47.0) % MCV (80.0-98.0) fL MCH (27.0-33.0) pg MCHC (31.0-35.0) g/dl RDW (11.0-16.0) % Plt Count (160-400) X10*3/uL MPV (9.4-12.3) fL Immature Gran % (Auto) (0.0-0.4) % Neut % (Auto) (45-73) % Lymph % (Auto) (20-40) % [place] % (Auto) (2-11) % Eos % (Auto) (0-4) % Baso % (Auto) (0-2) % Lymph # (Auto) (1.2-4.9) X10*3/uL [place] # (Auto) (0.1-1.2) X10*3/uL Eos # (Auto) (0.0-0.4) X10*3/uL Baso # (Auto) (0.0-0.2) X10*3/uL Abs Immat Gran (auto) (0.00-0.03) X10*3/uL Absolute Neuts (auto) (2.0-8.3) x10*3/uL Absolute Nucleated RBC (0.0-0.012) X10*3/uL Nucleated RBC % (auto) (0.0-0.2) /100WBC ESR (0-20) MM/HR PT (10.0-13.1) SEC INR (0.9-1.1) Sodium (135-145) mmol/L Potassium (3.3-5.1) mmol/L Chloride (96-108) mmol/L Carbon Dioxide (22-29) mmol/L Anion Gap (12-20) BUN (9-16) mg/dL Creatinine (0.5-1.4) mg/dL Estim Creat Clear Calc Estimated GFR Random Glucose (60-115) mg/dL Calcium (8.4-10.2) mg/dL Magnesium (1.6-2.6) mg/dL Total Bilirubin (0.0-1.0) mg/dL AST (5-31) U/L ALT (0-31) U/L Alkaline Phosphatase (39-117) U/L Total Protein (6.5-8.0) g/dL Albumin (3.5-5.0) g/dL Urine Color Urine Appearance Urine pH (5.0-9.0) Ur Specific [place] (1.005-1.025) Urine Protein (Neg-Trace) mg/dL Urine Glucose (UA) (Negative) mg/dL Urine Ketones (Negative) mg/dL Urine Blood (Negative) Urine Nitrite (Negative) Ur Leukocyte Esterase (Negative) CSF Tube Number 4 CSF Volume 2.8 ML CSF Appearance CLEAR CSF Color COLORLESS CSF WBC 5 MM*3 CSF RBC 15 MM*3 CSF Lymphocytes 96 % CSF Monocytes % 4 % CSF Appearance (b) CSF Glucose mg/dL CSF Total Protein (15-45) mg/dL CSF C.neoform/gat PCR (Not Detect.) CSF CMV DNA (PCR) (Not Detect.) CSF Enterovirus (PCR) (Not Detect.) CSF E. coli K1 (PCR) (Not Detect.) CSF H. influenzae (PCR) (Not Detect.) CSF HSV I (PCR) (Not Detect.) CSF HSV II (PCR) (Not Detect.) CSF HHV 6 (PCR) (Not Detect.) CSF L.monocytogenes PCR (Not Detect.) CSF N. meningitidis PCR (Not Detect.) CSF Parechovirus (PCR) (Not Detect.) CSF S. agalactiae (PCR) (Not Detect.) CSF S. pneumoniae (PCR) (Not Detect.) CSF VZV (PCR) (Not Detect.) Respiratory Panel [place] Adenovirus (Rapid PCR) (Not Detect.) B.pert (TEM-PCR) (Not Detect.) B.parapertussis DNA PCR (Not Detect.) C. pneumoniae DNA (PCR) (Not Detect.) Coronavirus OC43 (PCR) (Not Detect.) Coronavirus HKU1 (PCR) (Not Detect.) Coronavirus 229E (PCR) (Not Detect.) Coronavirus NL63 (PCR) (Not Detect.) Human Metapneumovir PCR (Not Detect.) Influenza A (RT-PCR) (Not Detect.) Influenza Type A (PCR) (Negative) Influenza B (RT-PCR) (Not Detect.) Influenza Type B (PCR) (Negative) M. pneumoniae (PCR) (Not Detect.) Parainfluenza 1 (PCR) (Not Detect.) Parainfluenza 2 (PCR) (Not Detect.) Parainfluenza 3 (PCR) (Not Detect.) Parainfluenza 4 (PCR) (Not Detect.) RSV (PCR) (Not Detect.) RSV RNA Qual (PCR) (Negative) Entero/Rhino (PCR) (Not Detect.) SARS-CoV-2 RNA (RT-PCR) (Negative) Discharge Plan Discharge Clinical Impression: Numbness and tingling of both lower extremities Patient Disposition: Admitted As Inpatient Interventions: Admission Worksheet (ED) Last Done: 02/28/22 19:40 Discharge Date/Time: 02/28/22 19:53
--- NOTE | 2022-02-27 18:03 | ED.GENADULT ---
HPI - General Adult General Chief complaint: General Medical Stated complaint: numbness from waist down Time Seen by Provider: 02/27/22 17:51 Source: patient and old records reviewed History of Present Illness HPI narrative: Patient presents with increasing bilateral lower extremity weakness. Patient states symptoms started 3-4 days ago and after getting progressively worse. She states it feels like both legs are ?asleep? with pins and needles type paresthesias. They are both weak with difficulty ambulating. 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 She has recently had COVID-19 infection approximately 4 weeks ago. She states she has been feeling hot but no no documented fevers over the past few evenings. One episode of incontinence of urine today. She states when she goes to the bathroom either bowel movement or urination she is unable to feel that she is going but so far has not lost control of bowels. She has only had 1 episode of bladder incontinence. She denies shortness of breath. No cough now. No respiratory symptoms. No nausea vomiting or diarrhea. Related Data Previous Rx's Medication Instructions Recorded ascorbic acid (vitamin C) 1,000 mg 1 g PO DAILY 90 days #90 tabs 12/15/21 tablet ibuprofen 600 mg tablet 600 mg PO TID PRN pain 10 days #30 12/26/21 tabs sulfamethoxazole 400 1 tab PO BEDTIME 90 days #90 tabs 01/17/22 mg-trimethoprim 80 mg tablet (Bactrim) Allergies Allergy/AdvReac Type Severity Reaction Status Date / Time No Known Allergies Allergy Verified 01/15/22 11:44 Review of Systems Review of Systems: Feeling hot like she has been having fevers the last few evenings but no documented temperatures Cardiovascular: Comments: No chest pain Respiratory: Comments: No dyspnea or current cough. Four weeks status post COVID-19 infection Gastrointestinal: Comments: No abdominal pain. No nausea vomiting diarrhea Musculoskeletal: Comments: No back or neck pain Integumentary/Breasts: Comments: No rash Neurologic: Comments: Bilateral leg weakness as mentioned PMFSH Past Medical History Medical History Hernandez's palsy Surgical History No pertinent past surgical history Family History Family History Father CKD (chronic kidney disease) Mother CHF (congestive heart failure) Coronary artery disease Diabetes Social History Social History Household Members: Spouse and Children Housing: House Do you presently have visiting nurse or other home services: No Alcohol intake: never Patient Tobacco Use Status: Never used Tobacco Tobacco use type: Cigarette Smoked in Last 30 Days: No e-Cigarette/Vaping Use: Never Used Patient Interested in Nicotine Replacement: No Patient Given Instructions on How to Stop Smoking: No Second Hand Smoke Exposure: No Use of substances other than those prescribed or required for medical reasons: Yes Substance Use Type: Marijuana Substance Use Frequency: Daily Last Used Substance: Days (ago) Last Used Substance Other:: saturday Currently Displaying Signs/Symptoms of Drug Intoxication Withdrawal: No Any prior treatment program specific to substance use: No Have you been hit, kicked, punched, or otherwise hurt by someone within the past year? If so, by whom?: No Do you feel safe in your current relationship?: No Is there a partner from a previous relationship who is making you feel unsafe now?: No Are you made to feel afraid or neglected: No Advance Directives: Yes Advance Directives Information Provided: No Advance Directives on File: Yes Advance Directives Date on File: 06/06/21 Do you have thoughts of harming others: None Do you have a plan to hurt others: No Plan Recently lost weight without trying: No Nutrition Risks: No Nutritional Risk Patient : No : No Poor oral hygiene: No service: No Current occupational status: employed Physical Exam ED Vital Signs: Vital Signs - 24 hr 02/28/22 00:37 02/28/22 04:08 02/28/22 05:49 Temperature 98.3 F 97.6 F 98.5 F Pulse Rate 63 58 61 Respiratory Rate 14 15 12 Blood Pressure 104/56 L 119/76 110/68 Pulse Oximetry 99 96 99 Oxygen Delivery Method Room Air Room Air Room Air 02/28/22 07:18 Temperature 98.4 F Pulse Rate 95 Respiratory Rate 18 Blood Pressure 95/47 L Pulse Oximetry 98 Oxygen Delivery Method Room Air BMI result Body Mass Index 28.0 Const Other: Awake and alert in no acute distress. Vital signs are stable and she is afebrile at the moment Eyes Other: Pupils equal round reactive to light. Extraocular muscles intact without dysconjugate gaze. Some vertigo on left lateral gaze Neck Other: No meningismus Resp Other: Clear and equal bilaterally without wheezes rales or rhonchi Cardio Other: Regular rate and rhythm without murmurs rubs or gallops GI Other: Soft nontender nondistended. Normoactive bowel sounds Back/Spine/Pelvis Other: Back with full range of motion without discomfort. No tenderness Skin Other: Warm and dry without obvious rash Neuro Other: Cranial nerves normal. Upper extremity strength is normal bilaterally without pronator drift. Lower extremity is 4/5 bilaterally. She is able to lift legs individually off the stretcher for a 5 count. But she is unable to fully extend at the knee while doing this. Sensation is subjectively diminished bilaterally and equally. Patellar deep tendon reflexes are absent bilaterally. Brachial deep tendon reflexes are also absent bilaterally. Upper extremity sensation is normal Extrem Other: No obvious trauma Course Course Course Narrative: Patient with bilateral lower extremity weakness. Progressively worse over several days. Very concerning for Guillain-Maroa. It is possible it is a spinal cord issue but she has not had lower back pain or discomfort. She also has absent upper extremity reflexes making a systemic issue such as Guillain-Maroa more likely. Will start workup. Anticipate lumbar puncture in the emergency department. 18:20. EKG normal sinus rhythm without ischemic or dysrhythmic changes. Normal EKG. 23:10. Lab work shows patient is positive for COVID-19. I discussed with her prior diagnosis from a month ago and she states that her whole family was positive for COVID. She took several home test that were all negative however. It is unclear if she truly at COVID a month ago and this is residual or if this is indeed an acute COVID-[address] scan is negative. I discussed with patient performing a lumbar puncture as she agrees to the plan. 00:18. Patient tolerated lumbar puncture well. Spinal fluid sent to lab Glucose and protein are normal. Five white cells total. Continue with plan for hospitalization Medications Administered Generic Name Dose Route Start Last Admin Trade Name Freq PRN Reason Stop Dose Admin Dextrose/Sodium Chloride 1,000 mls @ 100 mls/hr 02/28/22 10:15 02/28/22 21:48 D51/2ns IVCONT 100 mls/hr .Q10H CARLOS Administration Sodium Chloride 3 ml 02/28/22 16:00 02/28/22 23:37 0.9 % Sodium Chloride Flush 3 Ml Syringe IVFLUSH Not Given QSHIFT CARLOS Discontinued Medications Generic Name Dose Route Start Last Admin Trade Name Freq PRN Reason Stop Dose Admin Gadobutrol 10 ml 02/28/22 20:34 02/28/22 20:35 Gadobutrol 10 Ml Vial IVPUSH 02/28/22 20:35 10 ml ONCE ONE Administration Sodium Chloride 500 mls @ 500 mls/hr 02/27/22 23:45 02/28/22 02:41 Ns IV 02/28/22 00:44 Infused .Q1H CARLOS Infusion Lidocaine HCl 30 ml 02/28/22 00:00 02/28/22 00:23 Lidocaine Hcl 1 % Mpf 30 Ml Vial SUBCUT 02/28/22 00:01 30 ml ONCE ONE Administration Protocol Procedures Lumbar Puncture Time Out Performed: Yes Patient Position: upright Skin Prep: Povidone-Iodine 1% Local Anesthetic: lidocaine 1% Amount of anesthesia used (mL): 6 Spinal Needle Gauge: 22G Interspace Used: L4-L5 Fluid Initially Obtained: clear Complications: none Medical Decision Making Lab Data Result Diagrams: 02/27/22 18:32 02/27/22 18:32 Labs: Lab Results 02/27/22 02/27/22 02/27/22 Range/Units 18:32 18:32 18:32 WBC 6.5 (4.8-10.8) X10*3/uL RBC 4.58 (4.20-5.50) X10*6/uL Hgb 12.1 (12.0-16.0) g/dl Hct 37.2 (37.0-47.0) % MCV 81.2 (80.0-98.0) fL MCH 26.4 L (27.0-33.0) pg MCHC 32.5 (31.0-35.0) g/dl RDW 14.7 (11.0-16.0) % Plt Count 363 (160-400) X10*3/uL MPV 10.1 (9.4-12.3) fL Immature Gran % (Auto) 0.2 (0.0-0.4) % Neut % (Auto) 44.5 L (45-73) % Lymph % (Auto) 41.5 H (20-40) % Tyrrell % (Auto) 9.0 (2-11) % Eos % (Auto) 4.0 (0-4) % Baso % (Auto) 0.8 (0-2) % Lymph # (Auto) 2.7 (1.2-4.9) X10*3/uL Tyrrell # (Auto) 0.6 (0.1-1.2) X10*3/uL Eos # (Auto) 0.3 (0.0-0.4) X10*3/uL Baso # (Auto) 0.1 (0.0-0.2) X10*3/uL Abs Immat Gran (auto) 0.01 (0.00-0.03) X10*3/uL Absolute Neuts (auto) 2.9 (2.0-8.3) x10*3/uL Absolute Nucleated RBC 0.000 (0.0-0.012) X10*3/uL Nucleated RBC % (auto) 0.0 (0.0-0.2) /100WBC ESR (0-20) MM/HR PT 13.2 H (10.0-13.1) SEC INR 1.1 (0.9-1.1) Sodium 141 (135-145) mmol/L Potassium 4.0 (3.3-5.1) mmol/L Chloride 109 H (96-108) mmol/L Carbon Dioxide 24 (22-29) mmol/L Anion Gap 12 (12-20) BUN 15 (9-16) mg/dL Creatinine 0.78 (0.5-1.4) mg/dL Estim Creat Clear Calc 95.7 Estimated GFR > 60 Random Glucose 87 (60-115) mg/dL Calcium 9.5 (8.4-10.2) mg/dL Magnesium 1.8 (1.6-2.6) mg/dL Total Bilirubin 0.5 (0.0-1.0) mg/dL AST 18 (5-31) U/L ALT 18 (0-31) U/L Alkaline Phosphatase 118 H (39-117) U/L Total Protein 6.9 (6.5-8.0) g/dL Albumin 4.2 (3.5-5.0) g/dL Urine Color Urine Appearance Urine pH (5.0-9.0) Ur Specific [place] (1.005-1.025) Urine Protein (Neg-Trace) mg/dL Urine Glucose (UA) (Negative) mg/dL Urine Ketones (Negative) mg/dL Urine Blood (Negative) Urine Nitrite (Negative) Ur Leukocyte Esterase (Negative) CSF Tube Number CSF Volume ML CSF Appearance CSF Color CSF WBC MM*3 CSF RBC MM*3 CSF Lymphocytes % CSF Monocytes % % CSF Appearance (b) CSF Glucose mg/dL CSF Total Protein (15-45) mg/dL CSF C.neoform/gat PCR (Not Detect.) CSF CMV DNA (PCR) (Not Detect.) CSF Enterovirus (PCR) (Not Detect.) CSF E. coli K1 (PCR) (Not Detect.) CSF H. influenzae (PCR) (Not Detect.) CSF HSV I (PCR) (Not Detect.) CSF HSV II (PCR) (Not Detect.) CSF HHV 6 (PCR) (Not Detect.) CSF L.monocytogenes PCR (Not Detect.) CSF N. meningitidis PCR (Not Detect.) CSF Parechovirus (PCR) (Not Detect.) CSF S. agalactiae (PCR) (Not Detect.) CSF S. pneumoniae (PCR) (Not Detect.) CSF VZV (PCR) (Not Detect.) Respiratory Panel Augustin Adenovirus (Rapid PCR) (Not Detect.) B.pert (TEM-PCR) (Not Detect.) B.parapertussis DNA PCR (Not Detect.) C. pneumoniae DNA (PCR) (Not Detect.) Coronavirus OC43 (PCR) (Not Detect.) Coronavirus HKU1 (PCR) (Not Detect.) Coronavirus 229E (PCR) (Not Detect.) Coronavirus NL63 (PCR) (Not Detect.) Human Metapneumovir PCR (Not Detect.) Influenza A (RT-PCR) (Not Detect.) Influenza Type A (PCR) (Negative) Influenza B (RT-PCR) (Not Detect.) Influenza Type B (PCR) (Negative) M. pneumoniae (PCR) (Not Detect.) Parainfluenza 1 (PCR) (Not Detect.) Parainfluenza 2 (PCR) (Not Detect.) Parainfluenza 3 (PCR) (Not Detect.) Parainfluenza 4 (PCR) (Not Detect.) RSV (PCR) (Not Detect.) RSV RNA Qual (PCR) (Negative) Entero/Rhino (PCR) (Not Detect.) SARS-CoV-2 RNA (RT-PCR) (Negative) 02/27/22 02/27/22 02/27/22 Range/Units 18:32 18:32 20:07 WBC (4.8-10.8) X10*3/uL RBC (4.20-5.50) X10*6/uL Hgb (12.0-16.0) g/dl Hct (37.0-47.0) % MCV (80.0-98.0) fL MCH (27.0-33.0) pg MCHC (31.0-35.0) g/dl RDW (11.0-16.0) % Plt Count (160-400) X10*3/uL MPV (9.4-12.3) fL Immature Gran % (Auto) (0.0-0.4) % Neut % (Auto) (45-73) % Lymph % (Auto) (20-40) % Tyrrell % (Auto) (2-11) % Eos % (Auto) (0-4) % Baso % (Auto) (0-2) % Lymph # (Auto) (1.2-4.9) X10*3/uL Tyrrell # (Auto) (0.1-1.2) X10*3/uL Eos # (Auto) (0.0-0.4) X10*3/uL Baso # (Auto) (0.0-0.2) X10*3/uL Abs Immat Gran (auto) (0.00-0.03) X10*3/uL Absolute Neuts (auto) (2.0-8.3) x10*3/uL Absolute Nucleated RBC (0.0-0.012) X10*3/uL Nucleated RBC % (auto) (0.0-0.2) /100WBC ESR 13 (0-20) MM/HR PT (10.0-13.1) SEC INR (0.9-1.1) Sodium (135-145) mmol/L Potassium (3.3-5.1) mmol/L Chloride (96-108) mmol/L Carbon Dioxide (22-29) mmol/L Anion Gap (12-20) BUN (9-16) mg/dL Creatinine (0.5-1.4) mg/dL Estim Creat Clear Calc Estimated GFR Random Glucose (60-115) mg/dL Calcium (8.4-10.2) mg/dL Magnesium (1.6-2.6) mg/dL Total Bilirubin (0.0-1.0) mg/dL AST (5-31) U/L ALT (0-31) U/L Alkaline Phosphatase (39-117) U/L Total Protein (6.5-8.0) g/dL Albumin (3.5-5.0) g/dL Urine Color Yellow Urine Appearance Clear Urine pH 6.0 (5.0-9.0) Ur Specific [place] 1.025 (1.005-1.025) Urine Protein Negative (Neg-Trace) mg/dL Urine Glucose (UA) Negative (Negative) mg/dL Urine Ketones 15 (Negative) mg/dL Urine Blood Negative (Negative) Urine Nitrite Negative (Negative) Ur Leukocyte Esterase Negative (Negative) CSF Tube Number CSF Volume ML CSF Appearance CSF Color CSF WBC MM*3 CSF RBC MM*3 CSF Lymphocytes % CSF Monocytes % % CSF Appearance (b) CSF Glucose mg/dL CSF Total Protein (15-45) mg/dL CSF C.neoform/gat PCR (Not Detect.) CSF CMV DNA (PCR) (Not Detect.) CSF Enterovirus (PCR) (Not Detect.) CSF E. coli K1 (PCR) (Not Detect.) CSF H. influenzae (PCR) (Not Detect.) CSF HSV I (PCR) (Not Detect.) CSF HSV II (PCR) (Not Detect.) CSF HHV 6 (PCR) (Not Detect.) CSF L.monocytogenes PCR (Not Detect.) CSF N. meningitidis PCR (Not Detect.) CSF Parechovirus (PCR) (Not Detect.) CSF S. agalactiae (PCR) (Not Detect.) CSF S. pneumoniae (PCR) (Not Detect.) CSF VZV (PCR) (Not Detect.) Respiratory Panel Augustin Adenovirus (Rapid PCR) (Not Detect.) B.pert (TEM-PCR) (Not Detect.) B.parapertussis DNA PCR (Not Detect.) C. pneumoniae DNA (PCR) (Not Detect.) Coronavirus OC43 (PCR) (Not Detect.) Coronavirus HKU1 (PCR) (Not Detect.) Coronavirus 229E (PCR) (Not Detect.) Coronavirus NL63 (PCR) (Not Detect.) Human Metapneumovir PCR (Not Detect.) Influenza A (RT-PCR) (Not Detect.) Influenza Type A (PCR) NEGATIVE (Negative) Influenza B (RT-PCR) (Not Detect.) Influenza Type B (PCR) NEGATIVE (Negative) M. pneumoniae (PCR) (Not Detect.) Parainfluenza 1 (PCR) (Not Detect.) Parainfluenza 2 (PCR) (Not Detect.) Parainfluenza 3 (PCR) (Not Detect.) Parainfluenza 4 (PCR) (Not Detect.) RSV (PCR) (Not Detect.) RSV RNA Qual (PCR) NEGATIVE (Negative) Entero/Rhino (PCR) (Not Detect.) SARS-CoV-2 RNA (RT-PCR) POSITIVE A (Negative) 02/27/22 02/28/22 02/28/22 Range/Units 20:49 00:33 00:33 WBC (4.8-10.8) X10*3/uL RBC (4.20-5.50) X10*6/uL Hgb (12.0-16.0) g/dl Hct (37.0-47.0) % MCV (80.0-98.0) fL MCH (27.0-33.0) pg MCHC (31.0-35.0) g/dl RDW (11.0-16.0) % Plt Count (160-400) X10*3/uL MPV (9.4-12.3) fL Immature Gran % (Auto) (0.0-0.4) % Neut % (Auto) (45-73) % Lymph % (Auto) (20-40) % Tyrrell % (Auto) (2-11) % Eos % (Auto) (0-4) % Baso % (Auto) (0-2) % Lymph # (Auto) (1.2-4.9) X10*3/uL Tyrrell # (Auto) (0.1-1.2) X10*3/uL Eos # (Auto) (0.0-0.4) X10*3/uL Baso # (Auto) (0.0-0.2) X10*3/uL Abs Immat Gran (auto) (0.00-0.03) X10*3/uL Absolute Neuts (auto) (2.0-8.3) x10*3/uL Absolute Nucleated RBC (0.0-0.012) X10*3/uL Nucleated RBC % (auto) (0.0-0.2) /100WBC ESR (0-20) MM/HR PT (10.0-13.1) SEC INR (0.9-1.1) Sodium (135-145) mmol/L Potassium (3.3-5.1) mmol/L Chloride (96-108) mmol/L Carbon Dioxide (22-29) mmol/L Anion Gap (12-20) BUN (9-16) mg/dL Creatinine (0.5-1.4) mg/dL Estim Creat Clear Calc Estimated GFR Random Glucose (60-115) mg/dL Calcium (8.4-10.2) mg/dL Magnesium (1.6-2.6) mg/dL Total Bilirubin (0.0-1.0) mg/dL AST (5-31) U/L ALT (0-31) U/L Alkaline Phosphatase (39-117) U/L Total Protein (6.5-8.0) g/dL Albumin (3.5-5.0) g/dL Urine Color Urine Appearance Urine pH (5.0-9.0) Ur Specific [place] (1.005-1.025) Urine Protein (Neg-Trace) mg/dL Urine Glucose (UA) (Negative) mg/dL Urine Ketones (Negative) mg/dL Urine Blood (Negative) Urine Nitrite (Negative) Ur Leukocyte Esterase (Negative) CSF Tube Number 2 CSF Volume ML CSF Appearance CSF Color CSF WBC MM*3 CSF RBC MM*3 CSF Lymphocytes % CSF Monocytes % % CSF Appearance (b) Clear, Colorless CSF Glucose 59 mg/dL CSF Total Protein 26.7 (15-45) mg/dL CSF C.neoform/gat PCR Not Detected (Not Detect.) CSF CMV DNA (PCR) Not Detected (Not Detect.) CSF Enterovirus (PCR) Not Detected (Not Detect.) CSF E. coli K1 (PCR) Not Detected (Not Detect.) CSF H. influenzae (PCR) Not Detected (Not Detect.) CSF HSV I (PCR) Not Detected (Not Detect.) CSF HSV II (PCR) Not Detected (Not Detect.) CSF HHV 6 (PCR) Not Detected (Not Detect.) CSF L.monocytogenes PCR Not Detected (Not Detect.) CSF N. meningitidis PCR Not Detected (Not Detect.) CSF Parechovirus (PCR) Not Detected (Not Detect.) CSF S. agalactiae (PCR) Not Detected (Not Detect.) CSF S. pneumoniae (PCR) Not Detected (Not Detect.) CSF VZV (PCR) Not Detected (Not Detect.) Respiratory Panel Augustin See Note Adenovirus (Rapid PCR) Not Detected (Not Detect.) B.pert (TEM-PCR) Not Detected (Not Detect.) B.parapertussis DNA PCR Not Detected (Not Detect.) C. pneumoniae DNA (PCR) Not Detected (Not Detect.) Coronavirus OC43 (PCR) Not Detected (Not Detect.) Coronavirus HKU1 (PCR) Not Detected (Not Detect.) Coronavirus 229E (PCR) Not Detected (Not Detect.) Coronavirus NL63 (PCR) Not Detected (Not Detect.) Human Metapneumovir PCR Not Detected (Not Detect.) Influenza A (RT-PCR) Not Detected (Not Detect.) Influenza Type A (PCR) (Negative) Influenza B (RT-PCR) Not Detected (Not Detect.) Influenza Type B (PCR) (Negative) M. pneumoniae (PCR) Not Detected (Not Detect.) Parainfluenza 1 (PCR) Not Detected (Not Detect.) Parainfluenza 2 (PCR) Not Detected (Not Detect.) Parainfluenza 3 (PCR) Not Detected (Not Detect.) Parainfluenza 4 (PCR) Not Detected (Not Detect.) RSV (PCR) Not Detected (Not Detect.) RSV RNA Qual (PCR) (Negative) Entero/Rhino (PCR) Not Detected (Not Detect.) SARS-CoV-2 RNA (RT-PCR) Not Detected (Negative) 02/28/22 Range/Units 00:33 WBC (4.8-10.8) X10*3/uL RBC (4.20-5.50) X10*6/uL Hgb (12.0-16.0) g/dl Hct (37.0-47.0) % MCV (80.0-98.0) fL MCH (27.0-33.0) pg MCHC (31.0-35.0) g/dl RDW (11.0-16.0) % Plt Count (160-400) X10*3/uL MPV (9.4-12.3) fL Immature Gran % (Auto) (0.0-0.4) % Neut % (Auto) (45-73) % Lymph % (Auto) (20-40) % Tyrrell % (Auto) (2-11) % Eos % (Auto) (0-4) % Baso % (Auto) (0-2) % Lymph # (Auto) (1.2-4.9) X10*3/uL [place] # (Auto) (0.1-1.2) X10*3/uL Eos # (Auto) (0.0-0.4) X10*3/uL Baso # (Auto) (0.0-0.2) X10*3/uL Abs Immat Gran (auto) (0.00-0.03) X10*3/uL Absolute Neuts (auto) (2.0-8.3) x10*3/uL Absolute Nucleated RBC (0.0-0.012) X10*3/uL Nucleated RBC % (auto) (0.0-0.2) /100WBC ESR (0-20) MM/HR PT (10.0-13.1) SEC INR (0.9-1.1) Sodium (135-145) mmol/L Potassium (3.3-5.1) mmol/L Chloride (96-108) mmol/L Carbon Dioxide (22-29) mmol/L Anion Gap (12-20) BUN (9-16) mg/dL Creatinine (0.5-1.4) mg/dL Estim Creat Clear Calc Estimated GFR Random Glucose (60-115) mg/dL Calcium (8.4-10.2) mg/dL Magnesium (1.6-2.6) mg/dL Total Bilirubin (0.0-1.0) mg/dL AST (5-31) U/L ALT (0-31) U/L Alkaline Phosphatase (39-117) U/L Total Protein (6.5-8.0) g/dL Albumin (3.5-5.0) g/dL Urine Color Urine Appearance Urine pH (5.0-9.0) Ur Specific [place] (1.005-1.025) Urine Protein (Neg-Trace) mg/dL Urine Glucose (UA) (Negative) mg/dL Urine Ketones (Negative) mg/dL Urine Blood (Negative) Urine Nitrite (Negative) Ur Leukocyte Esterase (Negative) CSF Tube Number 4 CSF Volume 2.8 ML CSF Appearance CLEAR CSF Color COLORLESS CSF WBC 5 MM*3 CSF RBC 15 MM*3 CSF Lymphocytes 96 % CSF Monocytes % 4 % CSF Appearance (b) CSF Glucose mg/dL CSF Total Protein (15-45) mg/dL CSF C.neoform/gat PCR (Not Detect.) CSF CMV DNA (PCR) (Not Detect.) CSF Enterovirus (PCR) (Not Detect.) CSF E. coli K1 (PCR) (Not Detect.) CSF H. influenzae (PCR) (Not Detect.) CSF HSV I (PCR) (Not Detect.) CSF HSV II (PCR) (Not Detect.) CSF HHV 6 (PCR) (Not Detect.) CSF L.monocytogenes PCR (Not Detect.) CSF N. meningitidis PCR (Not Detect.) CSF Parechovirus (PCR) (Not Detect.) CSF S. agalactiae (PCR) (Not Detect.) CSF S. pneumoniae (PCR) (Not Detect.) CSF VZV (PCR) (Not Detect.) Respiratory Panel Augustin Adenovirus (Rapid PCR) (Not Detect.) B.pert (TEM-PCR) (Not Detect.) B.parapertussis DNA PCR (Not Detect.) C. pneumoniae DNA (PCR) (Not Detect.) Coronavirus OC43 (PCR) (Not Detect.) Coronavirus HKU1 (PCR) (Not Detect.) Coronavirus 229E (PCR) (Not Detect.) Coronavirus NL63 (PCR) (Not Detect.) Human Metapneumovir PCR (Not Detect.) Influenza A (RT-PCR) (Not Detect.) Influenza Type A (PCR) (Negative) Influenza B (RT-PCR) (Not Detect.) Influenza Type B (PCR) (Negative) M. pneumoniae (PCR) (Not Detect.) Parainfluenza 1 (PCR) (Not Detect.) Parainfluenza 2 (PCR) (Not Detect.) Parainfluenza 3 (PCR) (Not Detect.) Parainfluenza 4 (PCR) (Not Detect.) RSV (PCR) (Not Detect.) RSV RNA Qual (PCR) (Negative) Entero/Rhino (PCR) (Not Detect.) SARS-CoV-2 RNA (RT-PCR) (Negative) Critical Care Time Critical Care Time Critical Care Time: Yes Total Critical Care Time: 75 Attestation: Patient with critical care secondary to acute neuro deficit. Critical care time is outside of separately billable procedures such as the lumbar puncture Discharge Plan Discharge Clinical Impression: Numbness and tingling of both lower extremities Patient Disposition: Admitted As Inpatient Interventions: Admission Worksheet (ED) Last Done: 02/28/22 19:40 Discharge Date/Time: 02/28/22 19:53
[2022-02-27 18:36] LABS: MANUAL DIFF FLAG NO
[2022-02-27 18:38] LABS: Basophils Absolute Auto 0.1 X10*3/uL (0.0-0.2); Basophils Percent Auto 0.8 % (0-2); Eosinophils Absolute Auto 0.3 X10*3/uL (0.0-0.4); Hematocrit 37.2 % (37.0-47.0); Hemoglobin 12.1 g/dl (12.0-16.0); Imm Gran Abs Auto 0.01 X10*3/uL (0.00-0.03); Imm Gran Pct Auto 0.2 % (0.0-0.4); Lymphocytes Absolute Auto 2.7 X10*3/uL (1.2-4.9); Lymphocytes Percent Auto 41.5 % (20-40); Mean Corpuscular HGB Conc 32.5 g/dl (31.0-35.0); Mean Corpuscular Hemoglobin 26.4 pg (27.0-33.0); Mean Corpuscular Volume 81.2 fL (80.0-98.0); Mean Platelet Volume 10.1 fL (9.4-12.3); Monocytes Absolute Auto 0.6 X10*3/uL (0.1-1.2); Neutrophils Absolute Auto 2.9 x10*3/uL (2.0-8.3); Neutrophils Percent Auto 44.5 % (45-73); Platelet Count 363 X10*3/uL (160-400); Red Blood Count 4.58 X10*6/uL (4.20-5.50); Red Cell Distribution Width 14.7 % (11.0-16.0); White Blood Count 6.5 X10*3/uL (4.8-10.8)
[2022-02-27 18:51] LABS: INTERNATIONAL NORM RATIO 1.1 (0.9-1.1); Prothrombin Time 13.2 SEC (10.0-13.1)
[2022-02-27 18:55] LABS: Alanine Aminotransferase 18 U/L (0-31); Albumin Level 4.2 g/dL (3.5-5.0); Alkaline Phosphatase 118 U/L (39-117); Anion Gap 12 (12-20); Aspartate Amino Transferase 18 U/L (5-31); Bilirubin Total 0.5 mg/dL (0.0-1.0); Blood Urea Nitrogen 15 mg/dL (9-16); Calcium 9.5 mg/dL (8.4-10.2); Carbon Dioxide 24 mmol/L (22-29); Chloride 109 mmol/L (96-108); Creatinine Clr Calc Pharmacy 95.7; Estimated Glomerular Filt Rate > 60; Glucose Random 87 mg/dL (60-115); Magnesium 1.8 mg/dL (1.6-2.6); Sodium 141 mmol/L (135-145); Total Protein 6.9 g/dL (6.5-8.0)
[2022-02-27 19:14] LABS: Influenza A PCR NEGATIVE (Negative); Influenza B PCR NEGATIVE (Negative); Resp Syncy Virus RNA Qual PCR NEGATIVE (Negative); SARS COV2 PCR INHOUSE POSITIVE (Negative)
--- NOTE | 2022-02-27 19:14 | PC.NURSE ---
Assumed care of patient.
[2022-02-27 19:31] LABS: Erythrocyte Sedimentation Rate 13 MM/HR (0-20)
[2022-02-27 20:16] LABS: Appearance Urine Clear; Color Urine Yellow; Glucose Urine UA Negative (Negative); Leukocyte Esterase Urine Negative (Negative); Nitrite Urine Negative (Negative); Specific Gravity - Urine 1.025 (1.005-1.025); Urine Blood Negative (Negative); Urine Ketones 15 mg/dL (Negative); Urine Protein Negative (Neg-Trace)
[2022-02-27 21:11] VITALS: BP 108/58; PULSE 72; TEMP 36.8; O2SAT 100
--- NOTE | 2022-02-27 21:14 | PC.NURSE ---
Patient c/o numbness in lower extremities, denies any pain to affected sites. Pt c/o headache.
--- NOTE | 2022-02-27 21:15 | PC.NURSE ---
Pt complains of dizziness and headache.
--- NOTE | 2022-02-28 00:15 | PC.NURSE ---
Lumbar puncture done by provider. Pt tolerated well.
[2022-02-28] MEDS: 0.9 % Sodium Chloride 500 ML IV (00:23)
[2022-02-28] MEDS: Lidocaine HCl 1 % MPF 30 ML VIAL SUBCUT (00:23)
[2022-02-28 00:37] VITALS: BP 104/56; PULSE 63; RESP 14; TEMP 36.8; O2SAT 99
[2022-02-28 01:32] LABS: Appearance CSF CLEAR
[2022-02-28 01:33] LABS: CSF Monos 4 %; CSF Tube # 4; CSF Volume 2.8 ML; Color CSF COLORLESS; Lymphocytes CSF 96 %; Red Blood Cell CSF 15 MM*3; White Blood Cell CSF 5 MM*3
[2022-02-28 01:34] LABS: Glucose CSF 59 mg/dL; Total Protein CSF 26.7 mg/dL (15-45)
[2022-02-28 01:46] LABS: CSF Appearance Clear, Colorless; CSF Tube # 2
[2022-02-28 03:44] LABS: Cryptococcus neoformans/gattii Not Detected (Not Detect.); Enterovirus Not Detected (Not Detect.); Escherichia coli K1 Not Detected (Not Detect.); Haemophilus influenzae Not Detected (Not Detect.); Herpes simplex virus 1 Not Detected (Not Detect.); Herpes simplex virus 2 Not Detected (Not Detect.); Human herpesvirus 6 Not Detected (Not Detect.); Human parechovirus Not Detected (Not Detect.); Listeria monocytogenes Not Detected (Not Detect.); Neisseria meningitidis Not Detected (Not Detect.); Streptococcus agalactiae Not Detected (Not Detect.); Streptococcus pneumoniae Not Detected (Not Detect.); Varicella zoster virus Not Detected (Not Detect.)
[2022-02-28 04:08] VITALS: BP 119/76; PULSE 58; RESP 15; TEMP 36.4; O2SAT 96
--- NOTE | 2022-02-28 05:47 | PC.NURSE ---
pt complained of pain in IV sight i ask bambi the nurse to disconnect it while the regular nurse was tided up, vitals was taken lights was dim like pt ask no issues
[2022-02-28 05:49] VITALS: BP 110/68; PULSE 61; RESP 12; TEMP 36.9; O2SAT 99
--- NOTE | 2022-02-28 05:59 | PC.NURSE ---
Pt aox4. Continues to report numbness sensation on lower extremeties. Bilateral pedal pulses present. Pt able to move all extremities with strength. Pending LP results. VSS. Food and liquid provided to pt. Pt aware of plan of care. Will continue to monitor.
[2022-02-28 07:18] VITALS: BP 95/47; PULSE 95; RESP 18; TEMP 36.9; O2SAT 98
--- NOTE | 2022-02-28 08:08 | PC.NURSE ---
patient called RN into room. wanted to tell RN that she feels although the feeling in her legs and feet are improving. can lift legs off bed without any difficulty. waiting for re eval/dispo.
--- NOTE | 2022-02-28 09:55 | P.HPHOSP_ITS ---
History of Present Illness Date of Service: 02/28/22 Chief Complaint: Numbness in the legs 36 year old female with with recurring kidney stones, pyelonephritis on long- term antibiotics. She has presented to the emergency room today because of numbness and some weakness in the legs of several days duration. Apart from this she has been feeling normal. Has no fever or chills no respiratory issues. She is noted to have a COVID positive however without any symptoms related to this., all other routine workups are unremarkable. She tells me the sensation is better in the legs Review of Systems Review of Systems: Numbness in the legs. no fever, some weakness, Dizzy with some head movement. Yes all other systems are reviewed and are [facility] Medical History Hernandez's palsy Family History Father CKD (chronic kidney disease) Mother CHF (congestive heart failure) Coronary artery disease Diabetes Surgical History No pertinent past surgical history Social History Household Members: Spouse and Children Housing: House Do you presently have visiting nurse or other home services: No Alcohol intake: never Patient Tobacco Use Status: Never used Tobacco Tobacco use type: Cigarette Smoked in Last 30 Days: No e-Cigarette/Vaping Use: Never Used Patient Interested in Nicotine Replacement: No Patient Given Instructions on How to Stop Smoking: No Second Hand Smoke Exposure: No Use of substances other than those prescribed or required for medical reasons: Yes Substance Use Type: Marijuana Substance Use Frequency: Daily Last Used Substance: Days (ago) Last Used Substance Other:: saturday Currently Displaying Signs/Symptoms of Drug Intoxication Withdrawal: No Any prior treatment program specific to substance use: No Have you been hit, kicked, punched, or otherwise hurt by someone within the past year? If so, by whom?: No Do you feel safe in your current relationship?: No Is there a partner from a previous relationship who is making you feel unsafe now?: No Are you made to feel afraid or neglected: No Advance Directives: Yes Advance Directives Information Provided: No Advance Directives on File: Yes Advance Directives Date on File: 06/06/21 Do you have thoughts of harming others: None Do you have a plan to hurt others: No Plan Recently lost weight without trying: No Nutrition Risks: No Nutritional Risk Patient : No : No Poor oral hygiene: No service: No Current occupational status: employed Meds Allergies Allergy/AdvReac Type Severity Reaction Status Date / Time No Known Allergies Allergy Verified 01/15/22 11:44 Physical Exam Vital Signs and Narrative: Vital Signs: Last Vital Signs Temp 98.4 F 02/28/22 07:18 Pulse 95 02/28/22 07:18 Resp 18 02/28/22 07:18 BP 95/47 L 02/28/22 07:18 Pulse Ox 98 02/28/22 07:18 O2 Del Method 02/28/22 07:18 BMI result Body Mass Index 28.0 Const: Other: Constitutional: Alert, in no distress, overweight. Mental Status: Oriented to person, place and time. Eyes: Pupils are equal, round and reactive to light. Ear, Nose and Throat: Oropharynx clear, mucous membranes moist. Ears and nose without eformities. Trachea midline. Respiratory: Clear to auscultation. No wheezing, rales or rhonchi. Cardiovascular: S1 S2 regular. No murmurs, rubs or gallops. Gastrointestinal: Abdomen soft, non-tender, non-distended. Normal bowel sounds.? Neurologic: Cranial nerves II-XII grossly intact. No focal neurological deficits. Moves all extremities spontaneously.? Skin: No rashes or lesions.? Musculoskeletal: No cyanosis or clubbing. Psychiatric: Normal mood and affect? Results Labs CBC and Chem 7: 02/27/22 18:32 02/27/22 18:32 Labs: Laboratory Results - last 24 hr 02/27/22 02/27/22 02/27/22 18:32 18:32 18:32 MCV 81.2 MCH 26.4 L MCHC 32.5 RDW 14.7 Plt Count 363 MPV 10.1 Immature Gran % (Auto) 0.2 Neut % (Auto) 44.5 L Lymph % (Auto) 41.5 H [place] % (Auto) 9.0 Eos % (Auto) 4.0 Baso % (Auto) 0.8 Lymph # (Auto) 2.7 [place] # (Auto) 0.6 Eos # (Auto) 0.3 Baso # (Auto) 0.1 Abs Immat Gran (auto) 0.01 Absolute Neuts (auto) 2.9 Absolute Nucleated RBC 0.000 Nucleated RBC % (auto) 0.0 ESR PT 13.2 H INR 1.1 Anion Gap 12 Estim Creat Clear Calc 95.7 Estimated GFR > 60 Random Glucose 87 Calcium 9.5 Magnesium 1.8 Total Bilirubin 0.5 AST 18 ALT 18 Alkaline Phosphatase 118 H Total Protein 6.9 Albumin 4.2 Urine Color Urine Appearance Urine pH Ur Specific [place] Urine Protein Urine Glucose (UA) Urine Ketones Urine Blood Urine Nitrite Ur Leukocyte Esterase CSF Tube Number CSF Volume CSF Appearance CSF Color CSF WBC CSF RBC CSF Lymphocytes CSF Monocytes % CSF Appearance (b) CSF Glucose CSF Total Protein CSF C.neoform/gat PCR CSF CMV DNA (PCR) CSF Enterovirus (PCR) CSF E. coli K1 (PCR) CSF H. influenzae (PCR) CSF HSV I (PCR) CSF HSV II (PCR) CSF HHV 6 (PCR) CSF L.monocytogenes PCR CSF N. meningitidis PCR CSF Parechovirus (PCR) CSF S. agalactiae (PCR) CSF S. pneumoniae (PCR) CSF VZV (PCR) Influenza Type A (PCR) Influenza Type B (PCR) RSV RNA Qual (PCR) SARS-CoV-2 RNA (RT-PCR) 02/27/22 02/27/22 02/27/22 18:32 18:32 20:07 MCV MCH MCHC RDW Plt Count MPV Immature Gran % (Auto) Neut % (Auto) Lymph % (Auto) [place] % (Auto) Eos % (Auto) Baso % (Auto) Lymph # (Auto) [place] # (Auto) Eos # (Auto) Baso # (Auto) Abs Immat Gran (auto) Absolute Neuts (auto) Absolute Nucleated RBC Nucleated RBC % (auto) ESR 13 PT INR Anion Gap Estim Creat Clear Calc Estimated GFR Random Glucose Calcium Magnesium Total Bilirubin AST ALT Alkaline Phosphatase Total Protein Albumin Urine Color Yellow Urine Appearance Clear Urine pH 6.0 Ur Specific [place] 1.025 Urine Protein Negative Urine Glucose (UA) Negative Urine Ketones 15 Urine Blood Negative Urine Nitrite Negative Ur Leukocyte Esterase Negative CSF Tube Number CSF Volume CSF Appearance CSF Color CSF WBC CSF RBC CSF Lymphocytes CSF Monocytes % CSF Appearance (b) CSF Glucose CSF Total Protein CSF C.neoform/gat PCR CSF CMV DNA (PCR) CSF Enterovirus (PCR) CSF E. coli K1 (PCR) CSF H. influenzae (PCR) CSF HSV I (PCR) CSF HSV II (PCR) CSF HHV 6 (PCR) CSF L.monocytogenes PCR CSF N. meningitidis PCR CSF Parechovirus (PCR) CSF S. agalactiae (PCR) CSF S. pneumoniae (PCR) CSF VZV (PCR) Influenza Type A (PCR) NEGATIVE Influenza Type B (PCR) NEGATIVE RSV RNA Qual (PCR) NEGATIVE SARS-CoV-2 RNA (RT-PCR) POSITIVE A 02/28/22 02/28/22 02/28/22 00:33 00:33 00:33 MCV MCH MCHC RDW Plt Count MPV Immature Gran % (Auto) Neut % (Auto) Lymph % (Auto) [place] % (Auto) Eos % (Auto) Baso % (Auto) Lymph # (Auto) [place] # (Auto) Eos # (Auto) Baso # (Auto) Abs Immat Gran (auto) Absolute Neuts (auto) Absolute Nucleated RBC Nucleated RBC % (auto) ESR PT INR Anion Gap Estim Creat Clear Calc Estimated GFR Random Glucose Calcium Magnesium Total Bilirubin AST ALT Alkaline Phosphatase Total Protein Albumin Urine Color Urine Appearance Urine pH Ur Specific [place] Urine Protein Urine Glucose (UA) Urine Ketones Urine Blood Urine Nitrite Ur Leukocyte Esterase CSF Tube Number 2 4 CSF Volume 2.8 CSF Appearance CLEAR CSF Color COLORLESS CSF WBC 5 CSF RBC 15 CSF Lymphocytes 96 CSF Monocytes % 4 CSF Appearance (b) Clear, Colorless CSF Glucose 59 CSF Total Protein 26.7 CSF C.neoform/gat PCR Not Detected CSF CMV DNA (PCR) Not Detected CSF Enterovirus (PCR) Not Detected CSF E. coli K1 (PCR) Not Detected CSF H. influenzae (PCR) Not Detected CSF HSV I (PCR) Not Detected CSF HSV II (PCR) Not Detected CSF HHV 6 (PCR) Not Detected CSF L.monocytogenes PCR Not Detected CSF N. meningitidis PCR Not Detected CSF Parechovirus (PCR) Not Detected CSF S. agalactiae (PCR) Not Detected CSF S. pneumoniae (PCR) Not Detected CSF VZV (PCR) Not Detected Influenza Type A (PCR) Influenza Type B (PCR) RSV RNA Qual (PCR) SARS-CoV-2 RNA (RT-PCR) Imaging Radiologist's Impressions: Impressions Chest X-Ray 02/27/22 18:43 IMPRESSION: Unremarkable examination. Head CT 02/27/22 22:28 IMPRESSION: 1. No acute intracranial pathology. Assessment and Plan (1) Numbness and tingling of both lower extremities: Status: Acute (2) Paraparesis of both lower limbs: Status: Acute (3) Pyelonephritis: Status: Acute Plan 36-year-old female with history of recurrent kidney stone, pyelonephritis on long-term antibiotics otherwise healthy who presented with several days of numbness in both lower extremities with some weakness with concern raised by [place] syndrome, symptoms are actually better since yesterday, has assymptomatic covid 1/numbness in the legs, negative head CT, etiology unclear. Differential diagnosis include Guillain [place] syndromea will defer further workup at this time given that the patient's symptoms is already improving. Neurology consult 2/asymptomatic COVID--no treatment indicated. 3/recurrent UTI, pyelonephritis on a long-term antibiotics continue. Admission to [facility] mid[facility] for management of numbness in the legs Time Spent With Patient Time: Total time managing care of this patient today ____ minutes. Quality Stroke Does the patient have a stroke diagnosis?: No VTE Prior VTE?: No VTE Risk Level:: Medical - low VTE Device Contraindication: Treatment Not Indicated VTE Drug Contraindication: Treatment Not Indicated
[2022-02-28] MEDS: Dextrose 5 % and 0.45 % NaCl 1,000 ML 100 ML IVCONT ×2 (10:31→21:48)
[2022-02-28 11:13] LABS: Adenovirus PCR Not Detected (Not Detect.); Bordetella parapertussis PCR Not Detected (Not Detect.); Bordetella pertussis PCR Not Detected (Not Detect.); Chlamydia pneumoniae PCR Not Detected (Not Detect.); Coronavirus 229E PCR Not Detected (Not Detect.); Coronavirus HKU1 PCR Not Detected (Not Detect.); Coronavirus NL63 PCR Not Detected (Not Detect.); Coronavirus OC43 PCR Not Detected (Not Detect.); Human metapneumovirus PCR Not Detected (Not Detect.); Influenza A PCR Not Detected (Not Detect.); Influenza B PCR Not Detected (Not Detect.); Mycoplasma pneumoniae PCR Not Detected (Not Detect.); Parainfluenza 1 PCR Not Detected (Not Detect.); Rhino/Enterovirus PCR Not Detected (Not Detect.); SARS-CoV-2 PCR Not Detected (Not Detect.)
[2022-02-28 11:14] LABS: Parainfluenza 2 PCR Not Detected (Not Detect.); Parainfluenza 3 PCR Not Detected (Not Detect.); Parainfluenza 4 PCR Not Detected (Not Detect.); RSV PCR Not Detected (Not Detect.)
[2022-02-28 12:31] VITALS: BP 114/82; PULSE 63; RESP 18; TEMP 36.7; O2SAT 98
--- NOTE | 2022-02-28 14:08 | P.CNNE_ITS ---
History of Present Illness Data of Consult Service Date: 02/28/22 Primary Care Provider: None Physician HPI Reason for consult: Leg numbness 36 years old woman with underlying history of kidney stones and pyelonephritis who came to hospital with at least 3 days history of numbness in her legs from her buttocks down all around the leg on both sides and feet. She was not febrile but was sheet turner to be COVID positive. She had a lumbar puncture done that revealed normal CSF. Otherwise there was no obvious explanation. There was no history of trauma or significant back pain. Today she was feeling better stating that it seem like her symptom was resolving. Review of Systems Review of Systems: No loss of bowel bladder control or back pain PMFSH Past Medical History Medical History Hernandez's palsy Family History Family History Father CKD (chronic kidney disease) Mother CHF (congestive heart failure) Coronary artery disease Diabetes Surgical History Surgical History No pertinent past surgical history Social History Social History Alcohol intake: never Patient Tobacco Use Status: Former Tobacco user Quit Date: week ago Tobacco use type: Cigarette Smoked in Last 30 Days: Yes Second Hand Smoke Exposure: No Use of substances other than those prescribed or required for medical reasons: Yes Substance Use Type: Marijuana Advance Directives: Yes Advance Directives on File: Yes Advance Directives Date on File: 06/06/21 service: No Current occupational status: employed Meds Allergies Allergy/AdvReac Type Severity Reaction Status Date / Time No Known Allergies Allergy Verified 01/15/22 11:44 Active Medications: Current Medications Acetaminophen (Acetaminophen 325 Mg Tablet) 650 mg PO Q6H PRN PRN Reason: Pain, Mild (Pain Scale 1-3) Dextrose/Sodium Chloride (D51/2ns) 1,000 mls @ 100 mls/hr IVCONT .Q10H CARLOS Last Admin: 02/28/22 10:31 Dose: 100 mls/hr Melatonin (Melatonin 3 Mg Tablet) 6 mg PO BEDTIME PRN PRN Reason: Insomnia Ondansetron HCl (Ondansetron Hcl 4 Mg/2 Ml Vial) 4 mg IVPUSH Q8H PRN PRN Reason: Nausea and Vomiting Sodium Chloride (0.9 % Sodium Chloride Flush 3 Ml Syringe) 3 ml IVFLUSH QSHIFT CARLOS Physical Exam Vital Signs: Vital Signs: Last Vital Signs Temp 98.0 F 02/28/22 12:31 Pulse 63 02/28/22 12:31 Resp 18 02/28/22 12:31 BP 114/82 02/28/22 12:31 Pulse Ox 98 02/28/22 12:31 O2 Del Method 02/28/22 12:31 BMI result Body Mass Index 28.0 Neuro: Other: She was alert and awake with normal spontaneity of speech fluency comprehension and affect. Face was symmetrical. There was no obvious focal arm or leg weakness. Deep tendon reflexes were trace but present in legs. Plantars were flexors. Results Labs CBC & Chem 7: 02/27/22 18:32 02/27/22 18:32 Labs: Short CBC 02/27/22 Range/Units 18:32 WBC 6.5 (4.8-10.8) X10*3/uL Hgb 12.1 (12.0-16.0) g/dl Hct 37.2 (37.0-47.0) % Plt Count 363 (160-400) X10*3/uL BMP 02/27/22 18:32 Sodium 141 Potassium 4.0 Chloride 109 H Carbon Dioxide 24 BUN 15 Creatinine 0.78 Calcium 9.5 Liver Function 02/27/22 Range/Units 18:32 Total Bilirubin 0.5 (0.0-1.0) mg/dL AST 18 (5-31) U/L ALT 18 (0-31) U/L Alkaline Phosphatase 118 H (39-117) U/L Albumin 4.2 (3.5-5.0) g/dL Urine 02/27/22 Range/Units 20:07 Urine Color Yellow Urine Appearance Clear Urine pH 6.0 (5.0-9.0) Ur Specific [place] 1.025 (1.005-1.025) Urine Protein Negative (Neg-Trace) mg/dL Urine Glucose (UA) Negative (Negative) mg/dL Noncontrast head CT did not reveal any significant abnormality per Microbiology Microbiology Results: Microbiology 02/28/22 00:33 Cerebrospinal Fluid Gram Stain - Final 02/28/22 00:33 Cerebrospinal Fluid CSF Examination - Final 02/28/22 00:33 Cerebrospinal Fluid Fluid Description - Final 02/28/22 00:33 Cerebrospinal Fluid CSF Culture - Preliminary No growth after 1 day Assessment and Plan (1) Paraparesis of both lower limbs: Status: Acute 36 years old woman with new onset of bilateral leg numbness and weakness, which after few days have started to resolve. Her CSF did not reveal any significant abnormality. Exact etiology was unclear but overall presentation was not typical of Guillain-[place] syndrome. Because of her young age, I would recommend MRI of cervical and thoracic spine to rule out possibility of demyelinating disease. Time Spent With Patient Time: Total time managing care of this patient today ____ minutes. Procedures Date of Service Date of Service: 02/28/22
--- NOTE | 2022-02-28 19:19 | PC.NURSE ---
Patient c/o wants to leave AMA but is waiting for MRI to be done. is refusing to let her come home unless MRI is done. Patient apologized states her sons birthday is tomorrow, is depressed, and has ADD is going crazy in her room. MRI has arrived and is taking her for MRI. MRI asked us to disconnect fluids that were running.
[2022-02-28 21:08] VITALS: BP 111/76; PULSE 68; RESP 18; TEMP 36.9; O2SAT 96
[2022-02-28 21:15] VITALS: BMI 36.6
--- NOTE | 2022-02-28 22:21 | PM.EVENT ---
Event Note Date of Service: 02/28/22 Event Note: Cervical and thoracic MRIs were ordered as recommended by neurology. 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 spoke to neurology, Pt stable with no acute or worst symptoms at this time. Will need to be transferred in am. Time Spent With Patient Time: Total time managing care of this patient today ____ minutes.
[2022-03-01] VITALS (7 sets, daily range): BP systolic 105–132; BP diastolic 57–79; PULSE 59–76; RESP 15–18; TEMP 36.1–36.6; O2SAT 96–99
[2022-03-01] MEDS: Dextrose 5 % and 0.45 % NaCl 1,000 ML 100 ML IVCONT ×2 (07:37→16:48)
--- NOTE | 2022-03-01 08:27 | MHC.CM.PN ---
Patient is Covid (+); CM spoke with Patient over the phone at room Ext. [phone] and addressed [place] with her. Patient lives in an apartment with her and 2 children, ages 8 and 14 years of age. Patient is functionally independent and working; Home/self care is the goal and CM has initiated and will follow for dc planning. Patient is on a waiting list for a new PCP and she has received Toppr/fl3ur vax x2.
[2022-03-01] MEDS: LORazepam 0.5 MG TABLET 0.25 MG PO (12:08)
[2022-03-01] MEDS: 0.9 % Sodium Chloride Flush 3 ML SYRINGE IVFLUSH ×2 (16:48→20:12)
[2022-03-02] MEDS: Dextrose 5 % and 0.45 % NaCl 1,000 ML 100 ML IVCONT (02:28)
[2022-03-02 04:00] VITALS: BP 118/52; PULSE 67; RESP 16; TEMP 36.9; O2SAT 99
[2022-03-02 05:14] LABS: Lyme Abs Screen <0.90 index
[2022-03-02 07:50] VITALS: BP 100/58; PULSE 60; RESP 12; TEMP 36.7; O2SAT 98
--- NOTE | 2022-03-02 08:30 | MHC.CM.PN ---
The plan is for Patient to be dc/transferred to [facility] today.
--- NOTE | 2022-03-02 08:38 | P.DS_ITS ---
DS: Providers Provider Date of Service: 03/01/22 Date of admission: 02/28/22 10:02 Primary care physician: None Physician Consults: 02/28/22 10:04 Consult to Neurology Routine Consulting Provider: [facility] [place] [facility] Reason for consultation: Numbness in legs DS: Diagnosis Discharge Diagnosis (1) Numbness and tingling of both lower extremities: Status: Acute (2) Paraparesis of both lower limbs: Status: Acute (3) Pyelonephritis: Status: Acute DS: Summary Hospital Course Hospital Course: Chief Complaint: tingling in the legs ?89-year-old male with past medical history of CAD HLD, type 2 diabetes, history of restless leg syndrome, and history of psychotic disorder presents to the hosp ital with complaints of chest pain radiating to the back. pt is a poor historian? and has poor anguish, unable to understand which lung which he speaks, and unable to give much history. ? On arrival to the ED patient hemodynamically stable with a blood pressure 160/75 Labs are significant for WBC count of 9.4, hemoglobin of 10.9, hematocrit 33.2, troponin of 47 that increased to 495, COVID-[address] angiogram shows normal ascending aorta , abnormal transverse arch which likely represents a regular atheromatous plaque,? with the pattern likely representing extensive atherosclerotic plaque, ?patient started on heparin drip and will be admitted for further management Hospital course: Patient was admitted for tingling in the legs and was found to have Covid that is assymptomatic. a head CT showed no acute changes. She was seen by neurologist Dr. Turcios and had MRI with the following finding. MR/MR cervical spine wo/w con IMPRESSION: MRI cervical spine: 1. There are no acute fractures or subluxations. 2. There is no spondylosis or facet arthropathy. 3. The spinal cord has normal signal with no abnormal enhancement. 4. There is no abnormal enhancement of the cortical osseous structures. ? MRI thoracic spine: 1. There is a small focus of increased signal with enhancement in the spinal cord dorsally at the level of T7, and there are serpiginous vessels along the dorsal aspect of the spinal cord extending from T7 caudad.? 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 This could be further evaluated with spinal MRA or conventional spinal angiogram. Spinal MRA IMPRESSION: No abnormal arterial enhancement is seen within the thoracic spinal canal. Left-sided hydronephrosis with focal pelviectasis. Consider renal ultrasound evaluation. ? Based on the above findings, Dr. Turcios discussed the case with Luis Smith at [facility] and patient is to be transfer for spinal angiogram that we are not able do it Patient is covid positive but is completly assymptomatic She has history of recurrent pyelonephritis with a know left sided hydronephrosis and her uroligst has her on long-term bactrim but presently has no symptoms, is afebrile and normal WBC ? Time Spent with Patient Time attestation: Total time managing care of this patient today ____ minutes. Discharge coordination time: Greater than 30 minutes Quality: Safe Use of Opioids Does Pt have an Active Cancer Diagnosis on the Problem List?: No Quality: Stroke Does the patient have a stroke diagnosis?: No Physical Exam Vital Signs: Vital Signs: Last Vital Signs Temp 97 F 03/01/22 15:36 Pulse 65 03/01/22 15:36 Resp 16 03/01/22 15:36 BP 118/65 03/01/22 15:36 Pulse Ox 96 03/01/22 15:36 O2 Del Method 03/01/22 15:36 BMI result Body Mass Index 36.6 DS: Data Data Completed and Pending Completed studies during hospitalization [Text1]: Procedures Dilation of Left Ureter with Intraluminal Device, Via Natural or Artificial Opening Endoscopic (06/05/21) Extirpation of Matter from Left Ureter, Via Natural or Artificial Opening Endoscopic (06/05/21) Fluoroscopy of Left Kidney, Ureter and Bladder (06/05/21) Labs on day of discharge: Preliminary micro results at discharge 02/28/22 00:33 CSF Culture - Preliminary Cerebrospinal Fluid No growth after 1 day Discharge Plan Discharge Anticipated Discharge Date/Time: 03/02/22 08:32 Patient Disposition: Xfer Acute Care Hospital Discharge Diagnosis: Numbness in the legs Referrals: Nichole Ricky [Other] - 1 Week Physician,None [Primary Care Provider] - 1 Week Discharge Medications: Continued ibuprofen 600 mg tablet 600 mg PO TID PRN (Reason: pain) 10 Days Qty: 30 0RF ascorbic acid (vitamin C) 1,000 mg tablet 1 g PO DAILY 90 Days Qty: 90 1RF sulfamethoxazole-trimethoprim [Bactrim] 400-80 mg tablet 1 tab PO BEDTIME 90 Days Qty: 90 0RF Discharge Orders: Discharge Order (Routine); Ordered 03/02/22 Ordered By: Ludin Asif Diet: Advance to usual diet Activity on Discharge: As tolerated Stand Alone Forms: Patient Portal Discharge page Care Plan Goals: Full work up with for the numbness in the leg Health Concerns: Numness in the legs, abnormal MRI of thoracic spine Transfer to [facility]) for spinal angiogram Chronic recurrent UIT--continue bactrim Plan of Treatment: as above Assessment: As above
--- NOTE | 2022-03-02 09:32 | P.DS_ITS ---
DS: Providers Provider Date of Service: 03/02/22 Date of admission: 02/28/22 10:02 Primary care physician: None Physician Consults: 02/28/22 10:04 Consult to Neurology Routine Consulting Provider: [facility] Reason for consultation: Numbness in legs DS: Diagnosis Discharge Diagnosis (1) Numbness and tingling of both lower extremities: Status: Acute (2) Paraparesis of both lower limbs: Status: Acute (3) Pyelonephritis: Status: Acute DS: Summary Hospital Course Hospital Course: Chief Complaint: Numbness and tingling in the legs 36 year old female with with recurring kidney stones, pyelonephritis on long- term antibiotics.? She has presented to the emergency room today because of numbness and some weakness in the legs of several days duration.? Apart from this she has been feeling normal.? Has no fever or chills no respiratory issues.? She is noted to have a COVID positive however without any symptoms related to this., all other routine workups are unremarkable. She tells me the sensation is better in the legs Hospital course: Patient was admitted for tingling in the legs and was found to have Covid that is assymptomatic. a head CT showed no acute changes. She was seen by neurologist Dr. Turcios and had MRI with the following finding. MR/MR cervical spine wo/w con IMPRESSION: MRI cervical spine: 1. There are no acute fractures or subluxations. 2. There is no spondylosis or facet arthropathy. 3. The spinal cord has normal signal with no abnormal enhancement. 4. There is no abnormal enhancement of the cortical osseous structures. ? MRI thoracic spine: 1. There is a small focus of increased signal with enhancement in the spinal cord dorsally at the level of T7, and there are serpiginous vessels along the dorsal aspect of the spinal cord extending from T7 caudad.? 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 This could be further evaluated with spinal MRA or conventional spinal angiogram. Spinal MRA IMPRESSION: No abnormal arterial enhancement is seen within the thoracic spinal canal. Left-sided hydronephrosis with focal pelviectasis. Consider renal ultrasound evaluation. ? Based on the above findings, Dr. Turcios discussed the case with Luis Smith at [facility] and patient is to be transfer for spinal angiogram that we are not able do it Patient is covid positive but is completly assymptomatic She has history of recurrent pyelonephritis with a know left sided hydronephrosis and her uroligst has her on residential bactrim but presently has no symptoms, is afebrile and normal WBC ? Time Spent with Patient Time attestation: Total time managing care of this patient today ____ minutes. Discharge coordination time: Greater than 30 minutes Quality: Safe Use of Opioids Does Pt have an Active Cancer Diagnosis on the Problem List?: No Quality: Stroke Does the patient have a stroke diagnosis?: No Physical Exam Vital Signs: Vital Signs: Last Vital Signs Temp 98.1 F 03/02/22 07:50 Pulse 60 03/02/22 07:50 Resp 12 03/02/22 07:50 BP 100/58 L 03/02/22 07:50 Pulse Ox 98 03/02/22 07:50 O2 Del Method 03/02/22 07:50 BMI result Body Mass Index 36.6 DS: Data Data Completed and Pending Completed studies during hospitalization [Text1]: Procedures Dilation of Left Ureter with Intraluminal Device, Via Natural or Artificial Opening Endoscopic (06/05/21) Extirpation of Matter from Left Ureter, Via Natural or Artificial Opening Endoscopic (06/05/21) Fluoroscopy of Left Kidney, Ureter and Bladder (06/05/21) Labs on day of discharge: Laboratory Results - last 24 hr 02/27/22 18:32 Lyme Screen IgG & IgM <0.90 Preliminary micro results at discharge 02/28/22 00:33 CSF Culture - Preliminary Cerebrospinal Fluid No growth after 2 days Discharge Plan Discharge Anticipated Discharge Date/Time: 03/02/22 08:32 Patient Disposition: Xfer Acute Care Hospital Discharge Diagnosis: Numbness in the legs Referrals: Nichole Ricky [Other] - 1 Week Physician,None [Primary Care Provider] - 1 Week Discharge Medications: Continued ibuprofen 600 mg tablet 600 mg PO TID PRN (Reason: pain) 10 Days Qty: 30 0RF ascorbic acid (vitamin C) 1,000 mg tablet 1 g PO DAILY 90 Days Qty: 90 1RF sulfamethoxazole-trimethoprim [Bactrim] 400-80 mg tablet 1 tab PO BEDTIME 90 Days Qty: 90 0RF Discharge Orders: Discharge Order (Routine); Ordered 03/02/22 Ordered By: Ludin Mlapah Diet: Advance to usual diet Activity on Discharge: As tolerated Stand Alone Forms: Patient Portal Discharge page Care Plan Goals: Full work up with for the numbness in the leg Health Concerns: Numness in the legs, abnormal MRI of thoracic spine Transfer to [facility]) for spinal angiogram Chronic recurrent UIT--continue bactrim Plan of Treatment: as above Assessment: As above
[2022-03-02 16:43] LABS: Lyme (B. burgdorferi) PCR NOT DETECTED (NOT DETECTED)
[2022-03-15 08:36] LABS: Lyme IgG CSF Immunoblot NO BANDS DETECTED; Lyme IgM CSF Immunoblot NO BANDS DETECTED
== END 2022-03-02 10:25 | disposition short-term general hospital (02) ==
LOC: HO.ED 17:51 → HO.EDOVER 02-28 10:07 → HO.IMC 02-28 19:08
PROVIDERS: Physician Assistant Medical; Admitting Provider Internal Medicine; Emergency Provider Emergency Medicine; Visit Provider Internal Medicine
DX: U07.1 COVID-19 (principal); G82.20 Paraplegia, unspecified; R20.2 Paresthesia of skin; R20.0 Anesthesia of skin; N10 Acute pyelonephritis; F12.90 Cannabis use, unspecified, uncomplicated; Z79.2 Long term (current) use of antibiotics
CPT/HCPCS: 0241U; 36415; 62270; 70450; 71046; 72156; 72157; 72159; 80053; 81003; 82945; 83735; 84157; 85025; 85610; 85652; 86617; 86618; 87015; 87070; 87205; 87476; 87483; 87633; 89051; 93005; 96361; 96365; 96366; 96375; 96376; 99219; 99285; A9585

== ENCOUNTER 2022-06-14 12:09 | Outpatient (REF) | payer OTHER, SELFPAY ==
--- NOTE | ~2022-06-14 | US_ITS ---
EXAMINATION: US RETROPERITONEAL LIMITED (RENAL ONLY) CLINICAL INFORMATION: Tubulointerstitial nephritis, not specified as acute or chronic. COMPARISON: Ultrasound retroperitoneal limited (renal only) 12/26/2021. CT abdomen and pelvis without contrast 12/01/2021. Ultrasound retroperitoneal limited (renal only) 10/25/2021. TECHNIQUE: Real-time imaging of the kidneys. FINDINGS: RIGHT KIDNEY: 11.1 x 4.7 x 5.9 cm (SAG x AP x TRV). The kidney is normal in size, contour, and echogenicity. Renal cortical thickness is normal. No calculi or focal parenchymal lesions. No hydronephrosis. LEFT KIDNEY: 11.6 x 5.2 x 5.6 cm (SAG x AP x TRV). The kidney is normal in size, contour, and echogenicity. Renal cortical thickness is normal. No focal parenchymal lesions. Chronic hydroureteronephrosis. Redemonstration of left lower mid and lower pole stones measuring up to 1 cm in size. US/US renal BI IMPRESSION: 1. Chronic left hydroureteronephrosis with left-sided nephrolithiasis. 2. No right-sided hydronephrosis or nephrolithiasis.
== END 2022-06-14 12:10 | disposition home or self-care (01) ==
LOC: HO.US 12:09
PROVIDERS: Visit Provider Urology
DX: N12 Tubulo-interstitial nephritis, not specified as acute or chronic (principal)
CPT/HCPCS: 76775

== ENCOUNTER → 2022-06-22 10:50 | Outpatient (BNVA) | payer OTHER, SELFPAY | PROVIDERS: Visit Provider Urology ==

== ENCOUNTER 2022-12-13 11:47 | Outpatient (REF) | payer OTHER, SELFPAY ==
--- NOTE | ~2022-12-13 | XR_ITS ---
EXAMINATION: XR ABDOMEN KUB CLINICAL INDICATION: Pain and order from urinating for a week and a half, calculus of kidney COMPARISON: Renal ultrasound 06/19/2022. CT abdomen and pelvis 12/01/2021. TECHNIQUE: 2 views of the abdomen. FINDINGS: Nonobstructive bowel gas pattern. Moderate amount of stool in the colon. Visualization of the bilateral kidneys is limited due to overlying bowel. Redemonstration of multiple calculi, largest 1 cm, overlying lower pole left kidney. Small pelvic calcifications, likely vascular. Mild rightward curvature of the lumbar spine. XR/XR KUB IMPRESSION: Redemonstration of multiple calculi, largest 1 cm, overlying lower pole left kidney.
== END 2022-12-13 11:48 | disposition home or self-care (01) ==
LOC: HO.XRAY 11:47
PROVIDERS: Visit Provider Urology
DX: N20.0 Calculus of kidney (principal)
CPT/HCPCS: 74018

== ENCOUNTER 2022-12-20 10:16 | Outpatient (AMB) | payer OTHER, SELFPAY ==
--- NOTE | 2022-12-20 10:26 | MHC.OFFVIS ---
Intake Intake Visit Reasons: 6m/KUB(SET) Intake Note: Patient is present for FOLLOWUP Urology Med: None Antibiotic Allergy: none Blood Thinner:none Allergies No Known Allergies Allergy (Verified 12/20/22 10:28) Medication List - Last Reconciled 12/20/22 by Yonis Wagner MD ascorbic acid (vitamin C) 1 g PO DAILY 90 days ibuprofen 600 mg PO TID PRN 10 days sulfamethoxazole-trimethoprim 400-80 mg (Bactrim) 1 tab PO BEDTIME 90 days HPI HPI Comments History of Present Illness Details Swetha is a pleasant female. She is seen for following urologic conditions - nephrolithiasis Discussed KUB findings Persistent 1 cm left stone Starting develops symptoms Suggest intervention with left cystoscopy Represcribed ascorbic acid Drink had felt significantly better with decrease the pyelonephritis Nephrolithiasis Prior procedure May 2021 Intervention - left USR 06/06, 10/06 left ureteroscopy with laser lithotripsy Stone composition - mixed calcium oxalate with apatite - confirmed 10/06 - suppression antibiotics for 3 months Imaging - 09/06 ultrasound with large stone left side 1 cm - 01/06 CT scan left lower pole smudging - 06/07 renal ultrasound fragment left side - 12/08 KUB with stones Therapeutic plan - left ureteroscopy with laser lithotripsy PFSH Medical History Hernandez's palsy Surgical History No pertinent past surgical history Family History Father CKD (chronic kidney disease) Mother CHF (congestive heart failure) Coronary artery disease Diabetes Social History Household Members: Spouse and Children Housing: House Do you presently have visiting nurse or other home services: No Alcohol intake: never Patient Tobacco Use Status: Never used Tobacco Tobacco use type: Cigarette e-Cigarette/Vaping Use: Never Used Second Hand Smoke Exposure: No Substance Use Type: Marijuana Advance Directives Date on File: 06/06/21 service: No Current occupational status: employed Review of Systems Const Denies chills and Denies fever(s) Card Reports no additional complaints and Denies syncope Resp Denies cough GI Denies abdominal pain and Denies heartburn Reports as per HPI and Denies change in libido Neuro Denies syncope Psych Denies change in libido Endo Denies change in libido Physical Exam Const General: cooperative, healthy appearing, comfortable and no acute distress Orientation/consciousness: patient oriented x3 HEENT Face and sinus: Yes normal facial exam Mouth: moist mucous membranes Neck Neck: Yes normal visual inspection, Yes full ROM and Yes trachea midline Chest Chest palpation & inspection: normal inspection of the chest Resp Effort & Inspection: normal respiratory effort, able to speak in complete sentences and no respiratory distress GI Inspection: Yes normal to inspection Back/Spine/Pelvis Cervical Spine: normal cervical lordosis Thoracic/Lumbar Spine: thoracic and lumbar spine normal to inspection Skin General skin exam: no rashes or lesions noted Neuro General: patient oriented x3, gait normal, tone normal and moves all extremities Extrem General: Yes normal to inspection and Yes capillary refill normal Assessment & Plan Assessment & Plan (1) Calcium oxalate stones: Code(s): N20.0 - Calculus of kidney Plan Ureteroscopy We discussed the nature of the decision and reasonable alternatives for performing ureteroscopy. Options such as medical therapy were discussed. Interventions include chemical dissolution, ESWL, ureteroscopy with laser lithotripsy and stent placement, PCNL. The relative uncertainties and benefits related to each alternate procedure were adequately discussed. General surgical risks including, but not limited to - pain, bleeding, infection, myocardial infarction, pulmonary embolus, deep vein thrombosis and cerebrovascular accident which may result in further hospitalization were discussed. Full disclosure of the procedure as well as all major risks, benefits and complications were discussed including but not limited to damage to the urethra, bladder and kidney infection, damage to the ureter, stent migration or malposition, scarring to the renal pelvis, remnant stone fragments, subsequent stone passage with need for secondary procedures. The overall secondary procedure rate is approximately 10-15%. The overall clearance rate is approximately 90-95%. Success of the procedure in the short-term does not necessarily guarantee that long-term success will be maintained. Suitable follow up will need to be maintained. The patient showed understanding of discussion and wishes to proceed with - cystoscopy, retrograde, ureteroscopy, possible lithotripsy/stone basketing and stent on the left side Medications: Refilled ascorbic acid (vitamin C) 1 g PO DAILY 90 days 90 tabs 1RF N20.0 - Calculus of kidney, N39.0 - Urinary tract infection, site not specified Patient Instructions: Imaging studies, laboratory and physical exam results were discussed and reviewed in detail. No major barriers to patient understanding were identified. An opportunity to ask questions regarding the treatment plan was provided. All questions were answered. The patient expressed understanding and agreement with the above treatment plan. The patient is aware they should contact our office by phone for worsening of their current condition or the appearance of new urologic symptoms. Compliance is encouraged with any medications and followup testing that is ordered. It is a privilege to participate in the urologic care of your patient. If you have any questions or concerns regarding treatment for the above conditions, or other urologic issues, please do not hesitate to contact me. The office telephone contact is [phone]. This note is constructed using voice recognition software. While every effort has been made to ensure accuracy after school program teacher errors may have been included. Yours sincerely, Dr Yonis Wagner MD, [facility] - Urology Providers of Expert, Compassionate Care for the Genitourinary System Coding Level of Care Code Est Pt Level 4 (78126) Diagnoses Calcium oxalate stones N20.0
== END 2022-12-20 11:05 | disposition home or self-care (01) ==
PROVIDERS: Visit Provider Urology
DX: N20.0 Calculus of kidney (principal)
CPT/HCPCS: 99214

== ENCOUNTER → 2022-12-20 10:16 | Outpatient (BNVA) | payer OTHER, SELFPAY | PROVIDERS: Visit Provider Urology | DX: N20.0 Calculus of kidney (principal) | CPT/HCPCS: 99212 ==

== ENCOUNTER 2023-01-25 08:44 | Outpatient (AMB) | payer OTHER, SELFPAY ==
--- NOTE | 2023-01-25 08:47 | A.OFFPC_ITS ---
Vital Signs 01/25/23 08:48 Height 5 ft 5 in Weight 208 lb 6 oz BMI 34.7 BP 128/76 Blood Pressure Location Lt brachial Position Sitting Pulse 85 Pulse Source Pulse Oximeter Pulse Oximetry (%) 99 Oxygen Delivery Method Room Air Intake Visit Reasons: establish care Intake Note: Patient is a new patient here to establish care for Anxiety, History of kidney stones, Depression. Transferring care from [facility]. Medical records have not been requested and have not received. 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 Accompanied by: Self / Same As Patient Allergies No Known Allergies Allergy (Verified 01/25/23 09:01) Medication List - Last Reconciled 01/25/23 by JOHN Richard ascorbic acid (vitamin C) 1 g PO DAILY 90 days ondansetron 4 mg PO Q8H 3 days pyridoxine (vitamin B6) 100 mg PO DAILY 90 days Dental Screening Did you have a dental visit in the last 12 months?: No Did you have a dental problem in the last 6 months where you did not have access to dental care?: No Was dental information given to patient?: Patient has dentist HPI establish care HPI Details Patient is a 37-year-old female who presents today to establish care. No PCP in the past. Medical history significant for kidney stones-followed by Dr. Wagner. Patient also reports anxiety and depression for long time now, reports trying to deal with this on her own although she would like to have now counseling and try medication. She reports that she tried hydroxyzine from her mother for anxiety with some improvement. Patient reports that depression is worse than anxiety. Denies SI or HI. Patient lives with her 2 children and fiance. No shortness of breath or chest pain. 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 Surgical History History of kidney removal Family History Father CKD (chronic kidney disease) Mother CHF (congestive heart failure) Coronary artery disease Diabetes Social History Household Members: Spouse and Children Housing: Condominium Do you presently have visiting nurse or other home services: No Alcohol intake: never Patient Tobacco Use Status: Current everyday Tobacco user Tobacco use type: Cigarette Cigarettes Per Day: 3 (a week) e-Cigarette/Vaping Use: Never Used Second Hand Smoke Exposure: Yes Substance Use Type: Marijuana Advance Directives Date on File: 06/06/21 service: No Current occupational status: employed 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 1. Little interest or pleasure in doing things: several days 2. Feeling down, depressed, or hopeless: several days 3. Trouble falling or staying asleep, or sleeping too much: more than half the days 4. Feeling tired or having little energy: nearly every day 5. Poor appetite or overeating: more than half the days 6. Feeling bad about yourself - or that you are a failure or have let yourself or your family down: nearly every day 7. Trouble concentrating on things, such as reading the newspaper or watching television: not at all 8. Moving or speaking so slowly that other people could have noticed. Or the opposite - being so fidgety or restless that you have been moving around a lot more than usual: not at all 9. Thoughts that you would be better off or of hurting yourself in some way: not at all Total score: 12 Depression Screening Interpretation: Positive Depression Screening Follow-up: New Medication prescribed Depression Screening Done: Yes 36224 - PHQ-9 Billing: Yes Source: Developed by Drs. Juan Fry, Carley Penn, Wesley Hurd and colleagues, with an educational karen from [employer] Thrive Questionnaire Date Thrive assessed: 01/25/23 I am a: Patient What is your living situation today?: I have a steady place to live Within the past 12 months, did the food you bought not last and you didn't have the money to get more?: Never true Within the past 12 months, did you worry whether your food would run out before you got money to buy more?: Never true Do you have trouble paying for medicines?: No Do you have trouble getting transportation to medical appointments?: No Do you have trouble paying your heating and electricity bill?: No Do you have trouble taking care of your child, family member or friend?: No Do you have trouble with day-to-day activities such as bathing, preparing meals, shopping, managing finances, etc.?: No Are you currently unemployed and looking for a job?: No Are you interested in more education?: No Currently or been in a relationship where the following occur: no concerns reported AUDIT C Alcohol Use Questionnaire (AUDIT-C) 1. How often do you have a drink containing alcohol?: Never Total Score: 0 Score Reviewed/Action Taken: No DEMETRIS-7 AMB Questionnaire DEMETRIS-7 Date DEMETRIS - 7 assessed: 01/25/23 Feeling nervous, anxious, or on edge: 3 = Nearly every day Not being able to stop or control worryin = Nearly every day Worrying too much about different things: 3 = Nearly every day Trouble relaxin = Several days Being so restless that it is hard to sit still: 3 = Nearly every day Becoming easily annoyed or irritable: 1 = Several days Feeling afraid as if something awful might happen: 3 = Nearly every day Total DEMETRIS-7 score (0-4 normal; 5-9 mild; 10-14 moderate; 15-21 severe): 17 Source: Developed by Drs. Juan Fry, Carley Penn, Wesley Hurd and colleagues, with an educational karen from [employer] DEMETRIS-7 Assessment Billing DEMETRIS-7 Assessment Tool: DEMETRIS-7 Assessment 85620 Review of Systems Const Denies body aches, Denies chills, Denies fever(s) and Denies headache(s) Eyes Denies change in vision ENT Denies dizziness, Denies otalgia, Denies headache(s), Denies nasal discharge, Denies sinus pain and Denies sore throat Card Denies chest pain, Denies edema, Denies lightheadedness and Denies dyspnea Resp Denies cough, Denies dyspnea and Denies wheezing GI Denies abdominal pain Denies dysuria Musc Denies myalgias Skin/Breast Denies rash Neuro Denies dizziness and Denies headache(s) Psych Reports anxiety and Reports depression Aller/Immun Denies wheezing Physical exam (Primary Care) Vital Signs: Last Vital Signs Pulse 85 01/25/23 08:48 BP 128/76 01/25/23 08:48 Pulse Ox 99 01/25/23 08:48 Oxygen Delivery Method Room Air 01/25/23 08:48 BMI result Body Mass Index 34.7 Tobacco/Smoking Status: Tobacco use Status Patient Tobacco Use Status Current everyday Tobacco 01/25/23 08:59 Tobacco use type Cigarette 01/25/23 08:59 e-Cigarette/Vaping Use Never Used 01/25/23 08:59 PHQ-9: PHQ-9 Score PHQ-9: Total score 12 01/25/23 09:25 Depression Screening Interpretation: Positive Depression Screening Follow-up: New Medication prescribed Thrive Assessment: Date of Thrive Assessment Date Thrive assessed 01/25/23 01/25/23 08:59 Currently or been in a relationship where the following occur: no concerns reported Const General: cooperative and no acute distress Orientation/consciousness: patient oriented x3 HENMT Head: Yes normocephalic and Yes atraumatic Ears: TM's normal bilaterally Face and sinus: Yes sinuses nontender Mouth: oropharynx normal and moist mucous membranes Throat: Yes posterior oropharynx normal Eyes General: appearance normal, both eyes and all related structures Pupils: Equal, round and reactive pupils present EOM: EOMs intact bilaterally Neck Neck: Yes normal visual inspection, Yes full ROM and Yes no lymphadenopathy Thyroid: Thyroid normal Resp Effort & Inspection: normal respiratory effort and able to speak in complete sentences Auscultation: clear to auscultation bilaterally, no crackles, no rales, no rhonchi and no wheezes Cardio Rate: regular rate Rhythm: regular rhythm Heart sounds: S1 normal heart sound present, S2 normal heart sound present and no murmurs GI Palpation (GI): Soft to palpation, not firm, nontender, no guarding, not rigid and no hepatosplenomegaly Auscultation: normal bowel sounds General: No CVA tenderness Back/Spine/Pelvis Back: No CVA tenderness Skin General skin exam: no rashes or lesions noted Neuro General: patient oriented x3 Cranial nerves: Yes Equal, round and reactive pupils present Gait exam (Neuro): Normal gait present Extrem General: Yes full ROM and No edema Office Procedures Flu Questionnaire Does the patient have a severe egg allergy?: No Does the patient have severe life threatening allergies?: No Does the patient have a fever or illness today?: No Has the patient ever had Guillain-Polk Syndrome?: No Has the patient ever had any past reaction to a flu shot?: No Immunizations flu vacc [id number] 6mos up(PF) 60 mcg(15 mcgx4)/0.5 mL IM syringe Performing Provider: JOHN Richard [facility] Documented (not given) by: CLARENCE Sykes on 01/25/23 09:25 Reason Not Given: Not Given Assessment and Plan Assessment & Plan (1) Depression: Code(s): F32.A - Depression, unspecified Qualifiers: Depression Type: other depression Qualified Code(s): F32.89 - Other specified depressive episodes Plan: Start sertraline 25 mg daily-educated about possible adverse reactions and when to notify provider Counseling referral Patient provided with crisis phone number Follow-up in 6 weeks (2) Anxiety: Code(s): F41.9 - Anxiety disorder, unspecified Plan: Start hydroxyzine b.i.d. p.r.n.-educated about drowsiness Counseling referral Same as above (3) Calcium oxalate stones: Code(s): N20.0 - Calculus of kidney Plan: Continue to follow-up with urology Dr. Wagner (4) Encounter to establish care: Code(s): Z76.89 - Persons encountering health services in other specified circumstances Plan: Patient presents to establish care, blood work ordered Plan Follow-up in 6 weeks for PE Orders: Orders Influenza [id number] Immunization Today Z23 - Encounter for immunization Vitamin D 25-OH Total Today F32.A - Depression, unspecified Vitamin B12 and Folate Today F32.A - Depression, unspecified Lipid Panel Today F32.A - Depression, unspecified [facility] [place]. Panel Fast Today F32.A - Depression, unspecified Complete Blood Count Auto Diff Today F32.A - Depression, unspecified TSH reflex Free T4 Today F32.A - Depression, unspecified Referrals Counseling Referral F32.A - Depression, unspecified, F41.9 - Anxiety disorder, unspecified Medications: New hydroxyzine HCl 25 mg PO BID PRN 20 tabs 0RF anxiety F41.9 - Anxiety disorder, unspecified sertraline 25 mg PO DAILY 30 tabs 2RF F32.A - Depression, unspecified Coding Level of Care Code New Pt Level 4 (38137) Diagnoses Other depression F32.89 Depression Type: other depression Anxiety F41.9 Calcium oxalate stones N20.0 Encounter to establish care Z76.89 Additional Codes DEMETRIS-7 Assessment Billing - DEMETRIS-7 Assessment Tool: DEMETRIS-7 Assessment 46788 ([id number])
[2023-01-25 08:48] VITALS: BP 128/76; PULSE 85; O2SAT 99; BMI 34.7
== END 2023-01-25 09:16 | disposition home or self-care (01) ==
PROVIDERS: Visit Provider Nurse Practitioner Family
DX: F32.89 Other specified depressive episodes (principal); F41.9 Anxiety disorder, unspecified; N20.0 Calculus of kidney; Z76.89 Persons encountering health services in other specified circumstances
CPT/HCPCS: 96127; 99204

== ENCOUNTER 2023-02-18 06:04 | Day surgery (SDC) | payer OTHER, SELFPAY ==
[2023-02-14 14:53] VITALS: BMI 34.6
[2023-02-18] VITALS (8 sets, daily range): BP systolic 101–127; BP diastolic 47–74; PULSE 47–69; RESP 16; TEMP 35.9–36.8; O2SAT 96–99; BMI 35.2
--- NOTE | ~2023-02-18 | FL_ITS ---
EXAMINATION: XR FLUOROSCOPY WITH IMAGES CLINICAL INFORMATION: Urinary calculus. COMPARISON: June 14, 2022 TECHNIQUE: Fluoroscopy Supervised By: Dr. Yonis Wagner. Fluoroscopy Time: 20.9 seconds. Cumulative Dose: 7.82 mGy. Images: 3. FINDINGS: 3 images demonstrate contrast within the left renal collecting system and proximal left ureter. On one image there is noted to be a wire coiled within the left upper collecting system. FL/FL guidance in OR IMPRESSION: Intraoperative fluoroscopy for urological procedure.
[2023-02-18 06:35] LABS: UPreg QC Valid YES; Urine Pregnancy NEGATIVE (NEGATIVE)
--- NOTE | 2023-02-18 07:25 | HO.ANESPROP2 ---
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 Patient : No Family History Family History Father CKD (chronic kidney disease) Mother CHF (congestive heart failure) Coronary artery disease Diabetes Family history of problems with anesthesia: No Surgical History Surgical History (Updated 02/14/23 @ 14:50 by Jaycee Klein RN) Hx of cystoscopy History of Problems with Anesthesia: No Social History Social History Household Members: Spouse and Children [facility] Do you presently have visiting nurse or other home services: No Alcohol intake: never Patient Tobacco Use Status: Former Tobacco user Quit Date: week ago Tobacco use type: Cigarette Cigarettes Per Day: 3 (a week) e-Cigarette/Vaping Use: Never Used Second Hand Smoke Exposure: Yes Use of substances other than those prescribed or required for medical reasons: Yes Substance Use Type: Marijuana Are you DNR?: No Advance Directives: No Advance Directives Information Provided: Yes Advance Directives Date on File: 06/06/21 service: No Current occupational status: employed 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 Cognitive needs: No Hearing needs: No Vision needs: Yes (glasses) Meds Allergies Allergy/AdvReac Type Severity Reaction Status Date / Time No Known Allergies Allergy Verified 01/25/23 09:01 Exam Height,Weight and Vital Signs: Height 5 ft 5 in Weight 95.935 kg Last Vital Signs Temp 96.7 F L 02/18/23 06:28 Pulse 69 02/18/23 06:28 Resp 16 02/18/23 06:28 BP 101/47 L 02/18/23 06:28 Pulse Ox 96 02/18/23 06:28 O2 Del Method Room Air 02/18/23 06:28 Pertinent Lab Results Pertinent Lab Results: Laboratory Tests 02/18/23 06:14 Urine Test NEGATIVE Airway Mallampati Class: I TM Dist: >3cm Neck ROM: Full Loose/Missing/Broken Teeth: Yes Heart: ok Lungs: ok Assessment and Plan Assessment Anesthesia Assessment: Anesthesia Plan Discussed and Chart Reviewed Final Anesthetic Review Family History of Problems with Anesthesia: No History of Problems with Anesthesia: No NPO: Yes ASA Class: II Final Preanesthetic Review: No Changes in Pt Med Stat, Meds/Allgs Chart Reviewed, Consent Obtained/Reviewed and Anes Risks/Benef Reviewed Patient Risk: Low Procedure Risk: Low Anesthetic Plan Anesthetic Plan: GA and Agree w/ Assess. and Plan Disposition: Standard PACU
--- NOTE | 2023-02-18 07:53 | MHC.SHP ---
Pre-Procedural Eval Section A Date of Service: 02/18/23 The patient is an INPATIENT: No Changes since office visit: No Cold of Flu in the past 2 weeks, No New Medical Problems, No Changes in Medication and No Patient answered all questions The History & Physical has been completed within 30 days and I have reviewed it.: Yes Section B Chief Complaint: Calculus of kidney Allergies: Allergies Allergy/AdvReac Type Severity Reaction Status Date / Time No Known Allergies Allergy Verified 01/25/23 09:01 Review of Systems Sugical H&P ROS: Negative: Constitution, Cardiovascular, Respiratory, Neurological, Psychiatric, Hem-Onc, Allergic/Immunologic, Gastrointestinal, Genitourinary, Musculoskeletal, Integumentary, Endocrine and Eyes/Ears/Nose/Throat Exam Surgical H&P Exam: Normal: HEENT, Normal: Heart, Normal: Lungs, Normal: Extremities, Normal: Abdomen, Normal: Skin and Normal: Neurological Plan Diagnosis/Plan: Unchanged (cystoscopy, left retrograde, uerteroscopy, laser, stent) I have reviewed the history and physical and performed a pertinent physical examination on my patient. No changes have occurred unless specified. Time Spent With Patient Time: Total time managing care of this patient today ____ minutes.
[2023-02-18] MEDS: levoFLOXacin 500 MG TABLET PO (07:56)
--- NOTE | 2023-02-18 08:28 | W.PM.OPN ---
Operative Note Operative Note Date of Service: 02/18/23 Narrative: PreOperative Diagnosis: left renal stone Post Operative Diagnosis: left renal stone fragments Procedure: - cystoscopy, left retrograde - left dilatation of ureteric orifice under fluoroscopy - left ureteroscopy Surgeon: Dr Yonis Wagner Anesthesia: General Indications for procedure: prior left-sided procedure. Imaging showed left stone under both ultrasound and KUB approximately 10 mm. Procedure: After informed consent was verified patient was brought to the operating placed in supine position. Anesthesia was administered per protocol. Patient was placed in modified dorsal lithotomy position and prepped and draped in a sterile fashion. Safety pause time-out and side of surgery confirmed. Antibiotics confirmed. 22 Hebrew cystoscope was inserted per urethra. Bladder was normal in its entirety. Both ureteric orifices were in normal position. The Left ureteric orifice was cannulated and a retrograde examination was performed. no filling defects seen within the ureteral or renal collecting system.. A Sensor guidewire was placed up to the level of the renal pelvis under fluoroscopy. The rigid cystoscope was removed and the inner cannula of ureteric access sheath was used under fluoroscopy to dilate the ureteric orifice. The ureteric access sheath was placed and the inner cannula with access wire removed. The digital flexible ureteral scope was placed. Kidney was examined in its entirety. Evidence of prostate information is seen. In the lower pole of the kidney there was a collection of stone debris. It appears the stone debris was viewed on imaging as a solitary stone and in reality was multiple small stone particles. These particles were irrigated. She will need to perform position or drainage as outpatient to help with clearance. Due to the minimal large stone [place] a decision was made not to leave a stent. the access sheath and flexible scope removed. The bladder was drained. The bladder was emptied. The patient tolerated the procedure well and was extubated in the operating room, and transferred in stable condition to the recovery area. Pathology: Drains:
[2023-02-18] MEDS: Phenazopyridine HCL 100 MG TABLET PO (09:12)
== END 2023-02-18 10:10 | disposition home or self-care (01) ==
PROVIDERS: Visit Provider Urology
PROC: (CPT 52351; principal; 2023-02-18 07:30)
DX: N20.0 Calculus of kidney (principal); G51.0 Bell's palsy; Z79.899 Other long term (current) drug therapy
CPT/HCPCS: 52351; 81025; C1758; C1769; J0131; J1885; J2704; J3010; Q9967

== ENCOUNTER → 2023-02-18 06:04 | Outpatient (BNV) | payer OTHER, SELFPAY | PROVIDERS: Visit Provider Urology | DX: N20.0 Calculus of kidney (principal) | CPT/HCPCS: 52351; 74420 ==

== ENCOUNTER 2023-02-26 13:14 | Outpatient (AMB) | payer OTHER, SELFPAY ==
--- NOTE | 2023-02-26 13:15 | A.OFFVIS_ITS ---
Intake Intake Visit Reasons: post op follow up Intake Note: Patient is Present for Telephone Follow Up For follow up Urology Med: Vitamin B6 Antibiotic Allergy: None Blood Thinner: none Allergies No Known Allergies Allergy (Verified 02/26/23 13:17) HPI HPI Comments History of Present Illness Details Swetha is a pleasant female. She is seen for following urologic conditions - nephrolithiasis Telemedicine Evaluation 15 min Consultation [employer] [place] Video attempted Discussed operative findings Primarily had collection of small stone pieces Discussed maneuvers to assist with stone passage 6 month follow-up Continue vitamin B6 and ascorbic acid Nephrolithiasis Prior procedure May 2021 Intervention - left USR 06/06, 10/06 left ureteroscopy with laser lithotripsy, 03/09 ureteroscopy left side residual Stone composition - mixed calcium oxalate with apatite - c onfirmed 10/06 - suppression antibiotics for 3 months Imaging - 09/06 ultrasound with large stone left side 1 cm - 01/06 CT scan left lower pole smudging - 06/07 renal ultrasound fragment left si de - 12/08 KUB with stones Therapeutic plan - l surveillance [facility] Medical History Depression Renal calculi Numbness and tingling of both lower extremities 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 Surgical History Hx of cystoscopy Family History Father CKD (chronic kidney disease) Mother CHF (congestive heart failure) Coronary artery disease Diabetes Social History Household Members: Spouse and Children Housing: Condominium Do you presently have visiting nurse or other home services: No Alcohol intake: never Patient Tobacco Use Status: Former Tobacco user Quit Date: week ago Tobacco use type: Cigarette Cigarettes Per Day: 3 (a week) e-Cigarette/Vaping Use: Never Used Second Hand Smoke Exposure: Yes Substance Use Type: Marijuana Advance Directives Date on File: 06/06/21 service: No Current occupational status: employed 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 Cognitive needs: No Hearing needs: No Vision needs: Yes (glasses) Review of Systems Const All systems reviewed & are unremarkable except as noted in HPI and below Reports no additional complaints Resp Reports no additional complaints GI Reports no additional complaints Reports as per HPI Musc Reports no additional complaints Physical Exam Telemedicine evaluation Appropriate responses Regular breathing rate and rhythm HEENT Head: Yes normal to inspection Ears: hearing grossly normal bilaterally Eyes General: appearance normal, both eyes and all related structures Neck Neck: Yes normal visual inspection Chest Chest palpation & inspection: normal inspection of the chest Resp Effort & Inspection: normal respiratory effort and able to speak in complete sentences Assessment & Plan Assessment & Plan (1) Calcium oxalate stones: Code(s): N20.0 - Calculus of kidney Plan Six month follow-up imaging Orders: Orders XR KUB 6 Months N20.0 - Calculus of kidney Medications: New tamsulosin 0.4 mg PO BEDTIME 30 caps 1RF 30 days N40.1 - Benign prostatic hyperplasia with lower urinary tract symptoms, R35.1 - Nocturia Patient Instructions: Imaging studies, laboratory and physical exam results were discussed and reviewed in detail. No major barriers to patient understanding were identified. An opportunity to ask questions regarding the treatment plan was provided. All questions were answered. The patient expressed understanding and agreement with the above treatment plan. The patient is aware they should contact our office by phone for worsening of their current condition or the appearance of new urologic symptoms. Compliance is encouraged with any medications and followup testing that is ordered. It is a privilege to participate in the urologic care of your patient. If you durbin ve any questions or concerns regarding treatment for the above conditions, or other urologic issues, please do not hesitate to contact me. The office telephone contact is [phone]. This note is constructed using voice recognition software. While every effort has been made to ensure accuracy supervisor leaf spring repair errors may have been included. Yours sincerely, Dr Yonis Wagner MD, [facility] - Urology Providers of Expert, Compassionate Care for the Genitourinary System Telehealth Telehealth Location of provider rendering services: practice address Location of patient: address on file Patient Identification confirmed using: Name, : Yes Telehealth method: video Patient verbally consented to treatment: Yes Patient verbally consented to billing insurance company: Yes Patient informed of any privacy concerns related to visit: Yes Coding Level of Care Code Tele Est Pt Level 3 (59492) Diagnoses Calcium oxalate stones N20.0
== END 2023-02-26 13:45 | disposition home or self-care (01) ==
LOC: HO.HUSH 13:14
PROVIDERS: Visit Provider Urology
DX: N20.0 Calculus of kidney (principal)
CPT/HCPCS: 99213

== ENCOUNTER → 2023-02-26 13:14 | Outpatient (BNVA) | payer OTHER, SELFPAY | PROVIDERS: Visit Provider Urology ==

== ENCOUNTER 2023-07-22 15:10 | Outpatient (AMB) | payer OTHER, SELFPAY ==
--- NOTE | 2023-07-22 15:15 | A.OFFPC_ITS ---
Vital Signs 07/22/23 15:17 Height 5 ft 5 in Weight 204 lb BMI 33.9 BP 110/72 Blood Pressure Location Lt brachial Position Sitting Intake Visit Reasons: Trans. from Aileen S.-Medications F/U Intake Note: Patient here transferring of care/ medication follow up Correspondence Representative Required: No Accompanied by: Self / Same As Patient Allergies sertraline Adverse Reaction (Intermediate, Verified 07/22/23 15:41) suicidal ideation sulfamethoxazole [From Bactrim] Adverse Reaction (Intermediate, Verified 07/22/23 15:34) yeast infection trimethoprim [From Bactrim] Adverse Reaction (Intermediate, Verified 07/22/23 15:34) yeast infection Medication List - Last Reconciled 07/22/23 by Kindra Huynh MD ascorbic acid (vitamin C) 1 g PO DAILY 90 days hydroxyzine HCl 25 mg PO BID PRN pyridoxine (vitamin B6) 100 mg PO DAILY 90 days Tobacco use date assessed: 07/22/23 Dental Screening Dental Screen Date: 07/22/23 Did you have a dental visit in the last 12 months?: No Did you have a dental problem in the last 6 months where you did not have access to dental care?: No Was dental information given to patient?: Patient has dentist HPI HPI Comments History of Present Illness Details This is a 38-year-old female with mild major depression and anxiety that comes today for follow-up on her conditions. She has on a waiting list for counseling for her depression. Try sertraline that give her suicidal ideation. Afraid of trying any other medication. Anxiety stable with hydroxyzine as needed. No chest pain or shortness of breath. 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 Surgical History Hx of cystoscopy Family History (Updated 07/22/23 @ 15:39 by Kindra Huynh MD) Father CKD (chronic kidney disease) Mother CHF (congestive heart failure) Coronary artery disease Social History Household Members: Spouse and Children Housing: Condominium Do you presently have visiting nurse or other home services: No Alcohol intake: never Patient Tobacco Use Status: Former Tobacco user Quit Date: week ago Tobacco use type: Cigarette Cigarettes Per Day: 3 e-Cigarette/Vaping Use: Never Used Second Hand Smoke Exposure: Yes Substance Use Type: Marijuana Advance Directives Date on File: 06/06/21 service: No Current occupational status: employed 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 1. Little interest or pleasure in doing things: not at all 2. Feeling down, depressed, or hopeless: nearly every day 3. Trouble falling or staying asleep, or sleeping too much: more than half the days 4. Feeling tired or having little energy: nearly every day 5. Poor appetite or overeating: nearly every day 6. Feeling bad about yourself - or that you are a failure or have let yourself or your family down: several days 7. Trouble concentrating on things, such as reading the newspaper or watching television: several days 8. Moving or speaking so slowly that other people could have noticed. Or the opposite - being so fidgety or restless that you have been moving around a lot more than usual: more than half the days 9. Thoughts that you would be better off or of hurting yourself in some way: not at all Total score: 15 Depression Screening Interpretation: Positive Depression Screening Follow-up: Existing condition and Follow-up Visit Requested Depression Screening Done: Yes [id number] - PHQ-9 Billing: Yes Source: Developed by Drs. Juan Fry, Carley Penn, Wesley Hurd and colleagues, with an educational karen from [employer]. Thrive Questionnaire Date Thrive assessed: 07/22/23 I am a: Patient What is your living situation today?: I have a steady place to live Within the past 12 months, did the food you bought not last and you didn't have the money to get more?: Never true Within the past 12 months, did you worry whether your food would run out before you got money to buy more?: Never true Do you have trouble paying for medicines?: No Do you have trouble getting transportation to medical appointments?: No Do you have trouble paying your heating and electricity bill?: No Do you have trouble taking care of your child, family member or friend?: No Do you have trouble with day-to-day activities such as bathing, preparing meals, shopping, managing finances, etc.?: No Are you currently unemployed and looking for a job?: No Are you interested in more education?: No Please select the resources that you would like help with: None Currently or been in a relationship where the following occur: no concerns reported THRIVE Score: 0 AUDIT C Alcohol Use Questionnaire (AUDIT-C) 1. How often do you have a drink containing alcohol?: Monthly or less 2. How many drinks containing alcohol do you have on a typical day when you are drinking?: 1 or 2 3. How often do you have six or more drinks on one occasion?: Never Total Score: 1 DEMETRIS-7 AMB Questionnaire DEMETRIS-7 Date DEMETRIS - 7 assessed: 07/22/23 Feeling nervous, anxious, or on edge: 2 = More than half the days Not being able to stop or control worryin = Not at all Worrying too much about different things: 1 = Several days Trouble relaxin = Several days Being so restless that it is hard to sit still: 0 = Not at all Becoming easily annoyed or irritable: 1 = Several days Feeling afraid as if something awful might happen: 1 = Several days Total DEMETRIS-7 score (0-4 normal; 5-9 mild; 10-14 moderate; 15-21 severe): 6 Source: Developed by Drs. Juan Fry, Carley Penn, Wesley Hurd and colleagues, with an educational karen from [employer]. DEMETRIS-7 Assessment Billing DEMETRIS-7 Assessment Tool: DEMETRIS-7 Assessment [id number] Review of Systems Const All systems reviewed & are unremarkable except as noted in HPI and below Eyes Reports no additional complaints, Denies change in vision and Denies other v isual disturbances Card Denies chest pain at rest, Denies chest pain with activity, Denies edema, Denies irregular heart rhythm, Denies claudication, Denies dyspnea, Denies dyspnea on exertion, Denies orthopnea, Denies paroxysmal nocturnal dyspnea and Denies slow heart rate Resp Denies cough, Denies dyspnea and Denies dyspnea on exertion Physical exam (Primary Care) Vital Signs: Last Vital Signs BP 110/72 07/22/23 15:17 BMI result Body Mass Index 33.9 Tobacco/Smoking Status: Tobacco use Status Tobacco use date assessed 07/22/23 07/22/23 15:26 Patient Tobacco Use Status Former Tobacco user 07/22/23 15:16 Tobacco use type Cigarette 07/22/23 15:16 e-Cigarette/Vaping Use Never Used 07/22/23 15:16 PHQ-9: PHQ-9 Score PHQ-9: Total score 15 07/22/23 15:43 Depression Screening Interpretation: Positive Depression Screening Follow-up: Existing condition and Follow-up Visit Requested Thrive Assessment: Date of Thrive Assessment Date Thrive assessed 07/22/23 07/22/23 15:26 Currently or been in a relationship where the following occur: no concerns reported Resp Effort & Inspection: normal respiratory effort Auscultation: clear to auscultation bilaterally Cardio Jugular venous distension: no JVD Rate: regular rate Rhythm: regular rhythm Heart sounds: S1 normal heart sound present and S2 normal heart sound present Extrem General: Yes full ROM Assessment and Plan Assessment & Plan (1) Mild major depression: Code(s): F32.0 - Major depressive disorder, single episode, mild Plan: Pending counseling. No suicidal thoughts. (2) Anxiety: Code(s): F41.9 - Anxiety disorder, unspecified Patient Instructions: Continue hydroxyzine as needed. Coding Level of Care Code Est Pt Level 3 (24172) Diagnoses Mild major depression F32.0 Anxiety F41.9 Additional Codes DEMETRIS-7 Assessment Billing - DEMETRIS-7 Assessment Tool: DEMETRIS-7 Assessment [id number] ([id number]) Time Spent (min) 19
[2023-07-22 15:17] VITALS: BP 110/72; BMI 33.9
== END 2023-07-22 15:47 | disposition home or self-care (01) ==
PROVIDERS: PCP Internal Medicine; Visit Provider Internal Medicine
DX: F32.0 Major depressive disorder, single episode, mild (principal); F41.9 Anxiety disorder, unspecified
CPT/HCPCS: 99213

== ENCOUNTER 2023-08-27 09:16 | Outpatient (AMB) | payer OTHER, SELFPAY ==
--- NOTE | 2023-08-27 10:22 | AM.OFFWIN_ITS ---
Intake Vital Signs 08/27/23 10:23 Height 5 ft 5 in Weight 202 lb BMI 33.6 BP 120/70 Blood Pressure Location Lt brachial Position Sitting Pulse 72 Pulse Source Pulse Oximeter Temp 98.1 F Temp Source Temporal Artery Scan Pulse Oximetry (%) 99 Oxygen Delivery Method Room Air Intake Visit Reasons: EP ?UTI/Yeast infection [phone] Intake Note: pt is here today for UTI and yeast infection started 3 days ago Patient Tobacco Use Status: Former Tobacco user Allergies sertraline Adverse Reaction (Intermediate, Verified 08/27/23 10:29) suicidal ideation sulfamethoxazole [From Bactrim] Adverse Reaction (Intermediate, Verified 08/26 10:29) yeast infection trimethoprim [From Bactrim] Adverse Reaction (Intermediate, Verified 08/27/23 10:29) yeast infection Do you need a note to return to daycare/school/sports/work: Yes HPI HPI Comments History of Present Illness Details Patient is a 38-year-old female presenting with 3 days of watery discharge and itching in the vaginal area. She denies any pain with urination any bleeding or cramping pain or any but doors feels like she needing more than normal intercourse with her regular partner however they are not monogamous. She also states she has not gotten her period yet this month but has had some cramping. 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 Surgical History Hx of cystoscopy Family History (Updated 07/22/23 @ 15:39 by Kindra Huynh MD) Father CKD (chronic kidney disease) Mother CHF (congestive heart failure) Coronary artery disease Social History Household Members: Spouse and Children Housing: Condominium Do you presently have visiting nurse or other home services: No Alcohol intake: never Patient Tobacco Use Status: Former Tobacco user Tobacco use type: Cigarette Cigarettes Per Day: 3 e-Cigarette/Vaping Use: Never Used Second Hand Smoke Exposure: Yes Substance Use Type: Marijuana Advance Directives Date on File: 06/06/21 service: No Current occupational status: employed 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 Current occupational exposures/hazards: No Cognitive needs: No Hearing needs: No Vision needs: Yes (glasses) Review of Systems Const All systems reviewed & are unremarkable except as noted in HPI and below Physical Exam Vital Signs: Last Vital Signs Temp 98.1 F 08/27/23 10:23 Pulse 72 08/27/23 10:23 BP 120/70 08/27/23 10:23 Pulse Ox 99 08/27/23 10:23 Oxygen Delivery Method Room Air 08/27/23 10:23 BMI result Body Mass Index 33.6 Const General: cooperative, healthy appearing, comfortable, no acute distress and well developed Orientation/consciousness: patient oriented x3 Limitations: no limitations HEENT Head: Yes normal to inspection Eyes General: appearance normal, both eyes and all related structures Neck Neck: Yes normal visual inspection and Yes full ROM Skin General skin exam: no rashes or lesions noted Neuro General: patient oriented x3 Extrem General: Yes normal to inspection Results AMB Test Urine AMB Test Urine Negative Last Edit by FREDDY Leroy on 08/27/23 10:54 Results Reviewed Results Reviewed: Laboratory Last Values [facility] Clinic Negative 08/27/23 10:53 Assessment & Plan Assessment & Plan (1) Vaginal discharge: Code(s): N89.8 - Other specified noninflammatory disorders of vagina Plan: Send testing for gonorrhea and Chlamydia, UA is negative for infection. Will treat for a yeast infection. Recommended using a vaginal cell for symptomatic relief in the meanwhile (2) Missed menses: Code(s): N92.6 - Irregular menstruation, unspecified Plan: test negative Plan See above Orders: Orders Ur Preg Test Today N89.8 - Other specified noninflammatory disorders of vagina, N92.6 - Irregular menstruation, unspecified AMB HCG Urine Test Today Z32.02 - Encounter for test, result negative CT NG by PCR Today N89.8 - Other specified noninflammatory disorders of vagina Medications: New fluconazole may repeat second dose 72 hrs after first dose if symptoms persist 150 mg PO Q3D 2 tabs 0RF 2 doses Coding Level of Care Code Est Pt Level 4 (37389) Diagnoses Vaginal discharge N89.8 Missed menses N92.6
[2023-08-27 10:23] VITALS: BP 120/70; PULSE 72; TEMP 36.7; O2SAT 99; BMI 33.6
== END 2023-08-27 10:59 | disposition home or self-care (01) ==
PROVIDERS: PCP Internal Medicine; Visit Provider Physician Assistant
DX: N89.8 Other specified noninflammatory disorders of vagina (principal); N92.6 Irregular menstruation, unspecified; Z32.02 Encounter for pregnancy test, result negative
CPT/HCPCS: 81025; 99214

== ENCOUNTER 2023-08-27 10:45 | Outpatient (REF) | payer OTHER, SELFPAY ==
[2023-08-27 16:13] LABS: CT PCR NOT DETECTED (Not Detect.); NG PCR NOT DETECTED (Not Detect.)
== END 2023-08-27 10:46 | disposition home or self-care (01) ==
LOC: HO.LAB 10:45
PROVIDERS: Visit Provider Physician Assistant
DX: N89.8 Other specified noninflammatory disorders of vagina (principal)
CPT/HCPCS: 0353U

== ENCOUNTER 2023-08-27 10:55 | Outpatient (REF) | payer OTHER, SELFPAY ==
--- NOTE | ~2023-08-27 | XR_ITS ---
EXAMINATION: XR ABDOMEN KUB CLINICAL INDICATION: Calculus of kidney. COMPARISON: 02/18/2023 fluoroscopy in OR images, 12/05/2022 KUB, 06/14/2022 renal ultrasound. TECHNIQUE: 2 AP views of the abdomen. FINDINGS: Nonobstructive bowel gas pattern. Moderate amount of stool in the colon. Redemonstration of multiple calcifications overlying the left kidney, the largest 1 cm overlying the lower pole and 5 mm overlying the midpole. Limited visualization for evaluation of renal calculi due to overlying bowel. Mild rightward curvature of the lumbar spine. Small pelvic calcifications are likely vascular. XR/XR KUB IMPRESSION: Redemonstration of multiple calcifications overlying the left kidney, the largest 1 cm overlying the lower pole and 5 mm overlying the midpole. Limited visualization for evaluation of renal calculi due to overlying bowel.
== END 2023-08-27 10:56 | disposition home or self-care (01) ==
LOC: HO.HMGCX 10:55
PROVIDERS: PCP Internal Medicine; Visit Provider Urology
DX: N20.0 Calculus of kidney (principal)
CPT/HCPCS: 74018

== ENCOUNTER 2023-10-15 14:57 | Outpatient (AMB) | payer OTHER, SELFPAY ==
--- NOTE | 2023-10-15 14:54 | A.OFFVIS_ITS ---
Intake Visit Reasons: Follow up/KUB(SET) Intake Note: Patient is Present for Telephone Follow Up For KUB Urology Med: Vitamin B6, VITAMIN C Antibiotic Allergy: BACTRIM Blood Thinner: none [place] Required: No Allergies sertraline Adverse Reaction (Intermediate, Verified 10/15/23 14:55) suicidal ideation sulfamethoxazole [From Bactrim] Adverse Reaction (Intermediate, Verified 10/15/23 14:55) yeast infection trimethoprim [From Bactrim] Adverse Reaction (Intermediate, Verified 10/15/23 14:55) yeast infection Medication List - Last Reconciled 10/15/23 by Yonis Wagner MD ascorbic acid (vitamin C) 1 g PO DAILY 90 days fluconazole 150 mg PO Q3D 2 doses hydroxyzine HCl 25 mg PO BID PRN pyridoxine (vitamin B6) 100 mg PO DAILY 90 days HPI Comments Details: Swetha is a pleasant female. She is seen for following urologic conditions - nephrolithiasis Telemedicine Evaluation 15 min Consultation [facility]ine Video attempted Discussed operative findings Primarily had collection of small stone pieces Discussed maneuvers to assist with stone passage 6 month follow-up Continue vitamin B6 and ascorbic acid Nephrolithiasis Prior procedure May 2021 Intervention - left USR 06/06, 10/06 left ureteroscopy with laser lithotripsy, 03/09 ureteroscopy left side residual Stone composition - mixed calcium oxalate with apatite - confirmed 10/06 - suppression antibiotics for 3 months Imaging - 09/06 ultrasound with large stone left side 1 cm - 01/06 CT scan left lower pole smudging - 06/07 renal ultrasound fragment left side - 12/08 KUB with stones - 09/08 KUB left stone collection - stable Therapeutic plan - interval surveillance [facility] Medical History Depression Renal calculi Numbness and tingling of both lower extremities 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 Surgical History Hx of cystoscopy Family History (Updated 07/22/23 @ 15:39 by Kindra Huynh MD) Father CKD (chronic kidney disease) Mother CHF (congestive heart failure) Coronary artery disease Social History Household Members: Spouse and Children Housing: [facility] Do you presently have visiting nurse or other home services: No Alcohol intake: never Patient Tobacco Use Status: Former Tobacco user Tobacco use type: Cigarette Cigarettes Per Day: 3 e-Cigarette/Vaping Use: Never Used Second Hand Smoke Exposure: Yes Substance Use Type: Marijuana Advance Directives Date on File: 06/06/21 service: No Current occupational status: employed 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 Current occupational exposures/hazards: No Cognitive needs: No Hearing needs: No Vision needs: Yes (glasses) Review of Systems Const All systems reviewed & are unremarkable except as noted in HPI and below Reports no additional complaints Resp Reports no additional complaints GI Reports no additional complaints Reports as per HPI Musc Reports no additional complaints Physical Exam Telemedicine evaluation Appropriate responses Regular breathing rate and rhythm HEENT Head: Yes normal to inspection Ears: hearing grossly normal bilaterally Eyes General: appearance normal, both eyes and all related structures Neck Neck: Yes normal visual inspection Chest Chest palpation & inspection: normal inspection of the chest Resp Effort & Inspection: normal respiratory effort and able to speak in complete sentences Telehealth Telehealth Telehealth Platform: [employer] Location of provider rendering services: practice address Location of patient: address on file Patient Identification confirmed using: Name, : Yes Telehealth method: video Patient verbally consented to treatment: Yes Patient verbally consented to billing insurance company: Yes Patient informed of any privacy concerns related to visit: Yes Minutes spent on Phone/Video with Pt.: 15 Assessment & Plan Assessment & Plan (1) Calcium oxalate stones: Code(s): N20.0 - Calculus of kidney Category: Medical Plan Six month follow-up imaging Orders: Orders US renal BI 6 Months N20.0 - Calculus of kidney Patient Instructions: Imaging studies, laboratory and physical exam results were discussed and reviewed in detail. No major barriers to patient understanding were identified. An opportunity to ask questions regarding the treatment plan was provided. All questions were answered. The patient expressed understanding and agreement with the above treatment plan. The patient is aware they should contact our office by phone for worsening of their current condition or the appearance of new urologic symptoms. Compliance is encouraged with any medications and followup testing that is ordered. It is a privilege to participate in the urologic care of your patient. If you have any questions or concerns regarding treatment for the above conditions, or other urologic issues, please do not hesitate to contact me. The office telephone contact is [phone]. This note is constructed using voice recognition software. While every effort has been made to ensure accuracy power equipment technology instructor errors may have been included. Yours sincerely, Dr Yonis Wagner MD, [facility] Providers of Expert, Compassionate Care for the Genitourinary System Coding Level of Care Code Tele Est Pt Level 3 (50867) Diagnoses Calcium oxalate stones N20.0
== END 2023-10-15 15:34 | disposition home or self-care (01) ==
LOC: HO.HUSH 14:57
PROVIDERS: PCP Internal Medicine; Visit Provider Urology
DX: N20.0 Calculus of kidney (principal)
CPT/HCPCS: 99213

== ENCOUNTER → 2023-10-15 14:57 | Outpatient (BNVA) | payer OTHER, SELFPAY | PROVIDERS: PCP Internal Medicine; Visit Provider Urology ==

== ENCOUNTER 2024-01-19 23:53 | Inpatient (IN) | payer OTHER, SELFPAY ==
--- NOTE | ~2024-01-19 | CT_ITS ---
EXAMINATION: CT ABDOMEN AND PELVIS WITHOUT CONTRAST CLINICAL INFORMATION: Left-sided pain with history of kidney stones. COMPARISON: Abdominal radiograph 08/27/2023, renal ultrasound 06/14/2022., CT abdomen and pelvis 12/01/2021. TECHNIQUE: Multidetector volumetric imaging was performed from the superior aspect of the liver through the pubic symphysis. Sagittal and coronal reformatted images were obtained on the technologist's workstation. This CT examination was performed using dose optimization techniques as appropriate, variously including the following: *Automated exposure control *Adjustment of mA and/or kV according to patient size (this includes techniques or standardized protocols for targeted exams where dose is matched to indication/reason for exam; i.e. extremities or head) *Use of iterative reconstruction technique DLP: 629 mGy-cm FINDINGS: LUNG BASES: The visualized lung bases are unremarkable. LIVER, GALLBLADDER, AND BILIARY TREE: The liver is normal in size, shape, and attenuation. No focal hepatic lesion or biliary ductal dilatation is present. The gallbladder is unremarkable with no evidence of radiopaque gallstones, gallbladder wall thickening, or obvious pericholecystic inflammatory changes. PANCREAS: Unremarkable. SPLEEN: Unremarkable. ADRENAL GLANDS: Unremarkable. KIDNEYS AND URETERS: A 4.5 mm x 3.0 mm calculus is present in the proximal left ureter at the level of L4-L5 (series 4 image 410). Marked left hydronephrosis and moderate proximal left ureterectasis is present. A 5 mm calculus is present in the more proximal left ureteral calculus. A 6 mm calculus is present present in the extrarenal left pelvis. Multiple closely approximated punctate calculi are present dependently within the inferior left renal pelvis with individual calculus measuring approximately 1-2 mm diameter. Mild left perinephric inflammatory changes are identified. No discrete left perinephric fluid collections visualized. No right-sided urolithiasis. Normal appearance of the right kidney. BLADDER: Unremarkable. GASTROINTESTINAL TRACT: Normal appendix. No free intraperitoneal fluid or gas collections. No intestinal dilatation or mural thickening. Normal appearance of the stomach and duodenum ABDOMINAL WALL: No significant hernia is appreciated. LYMPH NODES: Normal. VASCULAR: Mild scattered calcific atherosclerosis PELVIC VISCERA: A 3.8 cm x 2.0 cm x 2.0 cm region of macroscopic fat density is present in association with the right ovary. This finding appears unchanged compared with 06/05/2021 and may represent an ovarian dermoid cyst. Uterus is grossly normal in appearance. No left adnexal lesions identified. OSSEOUS STRUCTURES: Unremarkable. CT/CT abdomen pelvis wo IV con IMPRESSION: 1. Single obstructing 4.5 mm x 3.0 mm calculus within the proximal left ureter at the level of L4-L5. Marked left hydronephrosis and moderate left ureterectasis. Multiple nonobstructing left renal calculi as detailed above including a 6 mm calculus in the left extrarenal pelvis. Mild left perinephric inflammatory changes are present. No discrete left perinephric fluid collections. 2. Normal appendix. 3. Single 3.8 cm x 2.0 cm x 2.0 cm region of macroscopic fat density in association with the right ovary unchanged compared with 12/01/2021 and suspicious for an ovarian dermoid cyst. Electronically signed by: Isaiah Vásquez MD 01/20/2024 02:30 AM JOJO
[2024-01-20] VITALS (13 sets, daily range): BP systolic 97–126; BP diastolic 49–76; PULSE 53–95; RESP 14–22; TEMP 36.2–37.4; O2SAT 96–100; BMI 32.6
[2024-01-20 00:18] LABS: MANUAL DIFF FLAG NO
--- NOTE | 2024-01-20 00:25 | ED.ABDPAIN ---
HPI - Abdominal Pain General Chief Complaint: Abdominal Pain Stated Complaint: LLQ Ab painradiating to Back, EMS gave fentanyl Time Seen by Provider: 01/20/24 00:08 Source: patient Mode of arrival: EMS Limitations: no limitations History of Present Illness ED Provider: rica LOW narrative: Patient's history of kidney stones comes here for left flank pain radiating to the left lower abdomen just prior to arrival patient's woke up from sleep with pain sharp in nature received fentanyl EN route but still having the pain no hematuria no dysuria no fever no chills no abdominal pain as such Related Data Previous Rx's ?Medication ?Instructions ?Recorded ascorbic acid (vitamin C) 1,000 mg 1 g PO DAILY 90 days #90 tabs 12/20/22 tablet pyridoxine (vitamin B6) 100 mg 100 mg PO DAILY 90 days #90 tabs 07/19/23 tablet fluconazole 150 mg tablet 150 mg PO Q3D 2 doses #2 tabs 08/27/23 hydroxyzine HCl 25 mg tablet 25 mg PO BID PRN anxiety #60 tabs 10/09/23 Allergies Allergy/AdvReac Type Severity Reaction Status Date / Time sertraline AdvReac Intermediate suicidal Verified 01/20/24 00:07 ideation sulfamethoxazole AdvReac Intermediate yeast Verified 01/20/24 00:07 [From Bactrim] infection trimethoprim [From Bactrim] AdvReac Intermediate yeast Verified 01/20/24 00:07 infection Review of Systems Review of Systems Yes all other systems are reviewed and are negative PMFSH Past Medical History Medical History Depression Renal calculi Numbness and tingling of both lower extremities 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 Surgical History Hx of cystoscopy Family History Family History Father CKD (chronic kidney disease) Mother CHF (congestive heart failure) Coronary artery disease Social History Social History Household Members: Spouse and Children Housing: Condominium Do you presently have visiting nurse or other home services: No Alcohol intake: never Patient Tobacco Use Status: Former Tobacco user Tobacco use type: Cigarette Cigarettes Per Day: 3 Smoked in Last 30 Days: No e-Cigarette/Vaping Use: Never Used Second Hand Smoke Exposure: Yes Use of substances other than those prescribed or required for medical reasons: Yes Substance Use Type: Marijuana Advance Directives: Yes Advance Directives on File: Yes Advance Directives Date on File: 06/06/21 Do you have a plan to hurt others: No Plan Patient : No service: No Current occupational status: employed Current occupation: [employer] Current occupational exposures/hazards: No Cognitive needs: No Hearing needs: No Vision needs: Yes (glasses) Physical Exam ED Vital Signs: Vital Signs - 24 hr 01/20/24 00:05 01/20/24 00:10 01/20/24 03:58 Temperature 98.9 F 98.9 F Pulse Rate 76 68 70 Respiratory Rate 22 H 22 H 14 Blood Pressure 97/50 L 97/50 L 103/50 L Pulse Oximetry 100 100 97 Oxygen Delivery Method Room Air Room Air Room Air 01/20/24 06:32 Temperature 97.6 F Pulse Rate 58 Respiratory Rate 16 Blood Pressure 104/60 Pulse Oximetry 99 Oxygen Delivery Method Room Air BMI result Body Mass Index 32.6 Appearance: Alert. Oriented X3. In moderate distress Eyes: No pallor no icterus ENT: Pharynx normal. Oral Mucosa moist Neck: Normal inspection. Neck supple. CVS: Normal heart rate and rhythm. Pulses normal. Respiratory: No respiratory distress. Equal air entry bilateral, Abdomen: Soft and nontender. Bowel sounds are present, no mass palpable, L CVA tenderness++ Skin: Skin warm and dry. Normal skin color. Normal skin turgor. Extremities: No lower extremity edema. No calf tenderness Neuro: Oriented X 3. Medical Decision Making Medical Decision Making [facility] Narrative: Patient has obstructive uropathy with significant pain in the left side requiring multiple doses of analgesics . Spoke with Dr. Wagner will admit and take the patient for stenting today Differential Diagnosis Differential Diagnoses: The differential diagnosis associated with the presentation includes Renal colic/pyelonephritis/UTI Lab Data [facility] Lab Attestation statement: I reviewed the patient's lab results. 01/20/24 00:15 01/20/24 00:15 Labs: Lab Results 01/20/24 01/20/24 Range/Units 00:15 03:07 WBC 9.2 (4.8-10.8) X10*3/uL RBC 4.12 L (4.20-5.50) X10*6/uL Hgb 11.2 L (12.0-16.0) g/dl Hct 33.6 L (37.0-47.0) % MCV 81.6 (80.0-98.0) fL MCH 27.2 (27.0-33.0) pg MCHC 33.3 (31.0-35.0) g/dl RDW 14.4 (11.0-16.0) % Plt Count 289 (160-400) X10*3/uL MPV 9.8 (9.4-12.3) fL Immature Gran % (Auto) 0.3 (0.0-0.4) % Neut % (Auto) 61.4 (45-73) % Lymph % (Auto) 24.4 (20-40) % [place] % (Auto) 9.2 (2-11) % Eos % (Auto) 4.2 H (0-4) % Baso % (Auto) 0.5 (0-2) % Lymph # (Auto) 2.3 (1.2-4.9) X10*3/uL [place] # (Auto) 0.9 (0.1-1.2) X10*3/uL Eos # (Auto) 0.4 (0.0-0.4) X10*3/uL Baso # (Auto) 0.1 (0.0-0.2) X10*3/uL Abs Immat Gran (auto) 0.03 (0.00-0.03) X10*3/uL Absolute Neuts (auto) 5.7 (2.0-8.3) x10*3/uL Absolute Nucleated RBC 0.000 (0.0-0.012) X10*3/uL Nucleated RBC % (auto) 0.0 (0.0-0.2) /100WBC Sodium 140 (135-145) mmol/L Potassium 4.4 (3.3-5.1) mmol/L Chloride 110 H (96-108) mmol/L Carbon Dioxide 21 L (22-29) mmol/L Anion Gap 13 (12-20) BUN 14 (9-16) mg/dL Creatinine 0.91 (0.5-1.4) mg/dL Estim Creat Clear Calc 89.8 Estimated GFR > 60 Random Glucose 108 (60-115) mg/dL Calcium 9.2 (8.4-10.2) mg/dL Total Bilirubin 0.2 (0.0-1.0) mg/dL Direct Bilirubin < 0.2 (0.0-0.5) mg/dL AST 24 (5-31) U/L ALT 29 (0-31) U/L Alkaline Phosphatase 105 (39-117) U/L Total Protein 6.8 (6.5-8.0) g/dL Albumin 3.7 (3.5-5.0) g/dL Lipase 199 H (8-78) U/L Beta HCG, Quant < 2 mIU/mL Urine Color Yellow Urine Appearance Clear Urine pH 6.0 (5.0-9.0) Ur Specific [place] 1.015 (1.005-1.025) Urine Protein Negative (Neg-Trace) mg/dL Urine Glucose (UA) Negative (Negative) mg/dL Urine Ketones Negative (Negative) mg/dL Urine Blood Small (1+) H (Negative) Urine Nitrite Negative (Negative) Ur Leukocyte Esterase Trace H (Negative) Urine RBC 6-10 H (0-2) /HPF Urine WBC 6-10 H (0-5) /HPF Ur Squamous Epith Cells 6-10 (0-2) /HPF Urine Bacteria 3+ (None Seen) Hyaline Casts 0-2 (0-2) /LPF Independent Interpretation I performed an independent interpretation of an: CT Scan Radiology Impression Discussion of test interpretation with radiology: I have reviewed the radiologist's reading. Radiologist Impression: [place] [id number] CT Scan Report Signed Patient: Swetha De La Rosa MR#: [id number] : 1985 Acct:[id number] Age/Sex: 38 / F ADM Date: 01/20/24 Loc: .ED Attending Dr: Ordering Physician: Brian Sharp MD Date of Service: 01/20/24 Procedure(s): CT abdomen pelvis wo IV con Accession Number(s): [id number] cc: Kindra Gan MD; Brian Sharp MD~ EXAMINATION: CT ABDOMEN AND PELVIS WITHOUT CONTRAST CLINICAL INFORMATION: Left-sided pain with history of kidney stones. COMPARISON: Abdominal radiograph 08/27/2023, renal ultrasound 06/14/2022., CT abdomen and pelvis 12/01/2021. TECHNIQUE: Multidetector volumetric imaging was performed from the superior aspect of the liver through the pubic symphysis. Sagittal and coronal reformatted images were obtained on the technologist's workstation. This CT examination was performed using dose optimization techniques as appropriate, variously including the following: *Automated exposure control *Adjustment of mA and/or kV according to patient size (this includes techniques or standardized protocols for targeted exams where dose is matched to indication/reason for exam; i.e. extremities or head) *Use of iterative reconstruction technique DLP: 629 mGy-cm FINDINGS: LUNG BASES: The visualized lung bases are unremarkable. LIVER, GALLBLADDER, AND BILIARY TREE: The liver is normal in size, shape, and attenuation. No focal hepatic lesion or biliary ductal dilatation is present. The gallbladder is unremarkable with no evidence of radiopaque gallstones, gallbladder wall thickening, or obvious pericholecystic inflammatory changes. PANCREAS: Unremarkable. SPLEEN: Unremarkable. ADRENAL GLANDS: Unremarkable. KIDNEYS AND URETERS: A 4.5 mm x 3.0 mm calculus is present in the proximal left ureter at the level of L4-L5 (series 4 image 410). Marked left hydronephrosis and moderate proximal left ureterectasis is present. A 5 mm calculus is present in the more proximal left ureteral calculus. A 6 mm calculus is present present in the extrarenal left pelvis. Multiple closely approximated punctate calculi are present dependently within the inferior left renal pelvis with individual calculus measuring approximately 1-2 mm diameter. Mild left perinephric inflammatory changes are identified. No discrete left perinephric fluid collections visualized. No right-sided urolithiasis. Normal appearance of the right kidney. BLADDER: Unremarkable. GASTROINTESTINAL TRACT: Normal appendix. No free intraperitoneal fluid or gas collections. No intestinal dilatation or mural thickening. Normal appearance of the stomach and duodenum ABDOMINAL WALL: No significant hernia is appreciated. LYMPH NODES: Normal. VASCULAR: Mild scattered calcific atherosclerosis PELVIC VISCERA: A 3.8 cm x 2.0 cm x 2.0 cm region of macroscopic fat density is present in association with the right ovary. This finding appears unchanged compared with 06/05/2021 and may represent an ovarian dermoid cyst. Uterus is grossly normal in appearance. No left adnexal lesions identified. OSSEOUS STRUCTURES: Unremarkable. CT/CT abdomen pelvis wo IV con IMPRESSION: 1. Single obstructing 4.5 mm x 3.0 mm calculus within the proximal left ureter at the level of L4-L5. Marked left hydronephrosis and moderate left ureterectasis. Multiple nonobstructing left renal calculi as detailed above including a 6 mm calculus in the left extrarenal pelvis. Mild left perinephric inflammatory changes are present. No discrete left perinephric fluid collections. 2. Normal appendix. 3. Single 3.8 cm x 2.0 cm x 2.0 cm region of macroscopic fat density in association with the right ovary unchanged compared with 12/01/2021 and suspicious for an ovarian dermoid cyst. Electronically signed by: Isaiah Vásquez MD 01/20/2024 02:30 AM [facility] Medications Administered Discontinued Medications Generic Name Dose Route Start Last Admin Trade Name Freq PRN Reason Stop Dose Admin Hydromorphone HCl 2 mg 01/20/24 02:57 01/20/24 03:01 Hydromorphone Hcl 2 Mg/Ml Vial IVPUSH 01/20/24 02:58 2 mg ONCE ONE Administration Protocol Sodium Chloride 1,000 mls @ 999 mls/hr 01/20/24 00:26 01/20/24 00:31 Ns IV 01/20/24 01:26 999 mls/hr .Q1H1M ONE Administration Ketorolac Tromethamine 30 mg 01/20/24 00:26 01/20/24 00:31 Ketorolac Tromethamine 30 Mg/Ml Vial IVPUSH 01/20/24 00:27 30 mg ONCE ONE Administration Morphine Sulfate 4 mg 01/20/24 00:26 01/20/24 00:30 Morphine Sulfate 4 Mg/Ml Cartridge IVPUSH 01/20/24 00:27 4 mg ONCE ONE Administration Protocol Ondansetron HCl 4 mg 01/20/24 00:26 01/20/24 00:30 Ondansetron Hcl 4 Mg/2 Ml Vial IVPUSH 01/20/24 00:27 4 mg ONCE ONE Administration Tamsulosin HCl 0.4 mg 01/20/24 01:57 01/20/24 03:01 Tamsulosin Hcl 0.4 Mg Capsule PO 01/20/24 01:58 0.4 mg ONCE ONE Administration Discharge Plan Discharge Clinical Impression: Ureteral colic, Obstructive nephropathy Patient Disposition: Still a Patient Prescriptions: No Action pyridoxine (vitamin B6) 100 mg tablet 100 mg PO DAILY 90 Days Qty: 90 1RF hydroxyzine HCl 25 mg tablet 25 mg PO BID PRN (Reason: anxiety) Qty: 60 0RF fluconazole 150 mg tablet 150 mg PO Q3D Qty: 2 0RF Rx Instructions: may repeat second dose 72 hrs after first dose if symptoms persist ascorbic acid (vitamin C) 1,000 mg tablet 1 g PO DAILY 90 Days Qty: 90 1RF Print Language: Tajik
[2024-01-20 00:26] LABS: Basophils Absolute Auto 0.1 X10*3/uL (0.0-0.2); Basophils Percent Auto 0.5 % (0-2); Eosinophils Absolute Auto 0.4 X10*3/uL (0.0-0.4); Eosinophils Percent Auto 4.2 % (0-4); Hematocrit 33.6 % (37.0-47.0); Hemoglobin 11.2 g/dl (12.0-16.0); Imm Gran Abs Auto 0.03 X10*3/uL (0.00-0.03); Imm Gran Pct Auto 0.3 % (0.0-0.4); Lymphocytes Absolute Auto 2.3 X10*3/uL (1.2-4.9); Lymphocytes Percent Auto 24.4 % (20-40); Mean Corpuscular HGB Conc 33.3 g/dl (31.0-35.0); Mean Corpuscular Hemoglobin 27.2 pg (27.0-33.0); Mean Corpuscular Volume 81.6 fL (80.0-98.0); Mean Platelet Volume 9.8 fL (9.4-12.3); Monocytes Absolute Auto 0.9 X10*3/uL (0.1-1.2); Monocytes Percent Auto 9.2 % (2-11); Neutrophils Absolute Auto 5.7 x10*3/uL (2.0-8.3); Neutrophils Percent Auto 61.4 % (45-73); Platelet Count 289 X10*3/uL (160-400); Red Blood Count 4.12 X10*6/uL (4.20-5.50); Red Cell Distribution Width 14.4 % (11.0-16.0); White Blood Count 9.2 X10*3/uL (4.8-10.8)
[2024-01-20] MEDS: ondansetron HCL 4 MG/2 ML VIAL IVPUSH ×2 (00:30→12:45)
[2024-01-20] MEDS: Morphine Sulfate 4 MG/ML CARTRIDGE IVPUSH (00:30)
[2024-01-20] MEDS: 0.9 % Sodium Chloride 1,000 ML 999 ML IV (00:31)
[2024-01-20] MEDS: Ketorolac Tromethamine 30 MG/ML VIAL IVPUSH (00:31)
[2024-01-20 00:40] LABS: Alanine Aminotransferase 29 U/L (0-31); Albumin Level 3.7 g/dL (3.5-5.0); Anion Gap 13 (12-20); Aspartate Amino Transferase 24 U/L (5-31); Bilirubin Direct < 0.2 mg/dL (0.0-0.5); Bilirubin Total 0.2 mg/dL (0.0-1.0); Blood Urea Nitrogen 14 mg/dL (9-16); Calcium 9.2 mg/dL (8.4-10.2); Carbon Dioxide 21 mmol/L (22-29); Chloride 110 mmol/L (96-108); Creatinine Clr Calc Pharmacy 89.8; Estimated Glomerular Filt Rate > 60; Glucose Random 108 mg/dL (60-115); Lipase 199 U/L (8-78); Potassium 4.4 mmol/L (3.3-5.1); Sodium 140 mmol/L (135-145); Total Protein 6.8 g/dL (6.5-8.0)
[2024-01-20 00:46] LABS: Alkaline Phosphatase 105 U/L (39-117)
[2024-01-20 01:30] LABS: HCG Quantitative < 2 mIU/mL
[2024-01-20] MEDS: Tamsulosin HCL 0.4 MG CAPSULE PO (03:01)
[2024-01-20] MEDS: HYDROmorphone HCl 2 MG/ML VIAL IVPUSH ×2 (03:01→08:36)
[2024-01-20 03:18] LABS: Appearance Urine Clear; Color Urine Yellow; Glucose Urine UA Negative (Negative); Leukocyte Esterase Urine Trace (Negative); Nitrite Urine Negative (Negative); Specific Gravity - Urine 1.015 (1.005-1.025); UMIC TRIGGER UACC YES; Urine Blood Small (1+) (Negative); Urine Ketones Negative (Negative); Urine Protein Negative (Neg-Trace)
[2024-01-20 03:24] LABS: Bacteria Urine 3+ (None Seen); Hyaline Casts Urine 0-2 /LPF (0-2); UACC Culture Trigger YES
--- NOTE | 2024-01-20 07:18 | PC.NURSE ---
report recieved from previous RN, patient resting on stretcher, states pain is starting to come back, awaiting admission orders, provider made aware.
--- NOTE | 2024-01-20 07:41 | PC.NURSE ---
patient requesting to wait on pain medications at this time
--- NOTE | 2024-01-20 08:32 | PHA.MEDREC ---
Addendum entered by Gurmeet Malone RPh 01/20/24 08:51: Reviewed by [facility]. Original Note: Pharmacy Consult ? Medication Reconciliation Pharmacy has completed the medication reconciliation. Confirmed medications with patient. Patient stats she has not taken her Vitamin C 1000mg tab or Vitamin B-6 100mg tabs in about a month due to the kidney stones due to her and her Dr thinking they are a factor in the Kidney Stones. She did confirm she is taking the Hydroxyzine HCL 25mg tab at bedtime as needed instead of BID due to taking it in the morning is too much for the patient and taking one at night has been effective for her. She confirmed she took the Hydroxyzine HCL 25mg tab last night.
--- NOTE | 2024-01-20 08:33 | PC.NURSE ---
patient ambulatory to bathroom with steady gait, requesting pain medications, patient to be medicated upon return
--- NOTE | 2024-01-20 11:34 | PC.NURSE ---
patient with one episode of vomiting, asked if she would like medication for nausea, patient states she does not want to take anything at this time
--- NOTE | 2024-01-20 12:05 | PC.NURSE ---
this RN reached out to MD Wagner for admission orders and PRN pain medications, unknown when patient will be going for procedure at this time, awaiting update on plan of care
--- NOTE | 2024-01-20 12:54 | PC.NURSE ---
patient with another episode of vomiting, escalated to furnace charger, no orders placed by admitting after 6 hours. call placed to OR, patient scheduled for 7pm, no admitting orders at this time
--- NOTE | 2024-01-20 13:21 | PC.NURSE ---
report called to overflow RN. pt to be moved to overflow 4
[2024-01-20] MEDS: levoFLOXacin/D5W 500 MG/100 ML PIGGYBACK 100 MG IV (13:24)
[2024-01-20] MEDS: Ketorolac Tromethamine 15 MG/ML VIAL IVPUSH ×2 (13:26→20:54)
--- NOTE | 2024-01-20 14:11 | PC.NURSE ---
Pt settled in Overflow Rm4. Continues to complain of flank pain follow torodol. Was able to stand/pivot to transfer to hospital bed. No nausea/Vomiting.
[2024-01-20] MEDS: oxyCODONE HCl Immed Release 5 MG TABLET PO (15:30)
--- NOTE | 2024-01-20 15:35 | PC.NURSE ---
pt seemingly uncomfortable/crying d/t increase in left sided flank/abd pain. prn oxycodone utilized. effectiveness pending. pt requesting another form of medication at this time - dr. love notified/aware via tiger.
[2024-01-20] MEDS: Morphine Sulfate 4 MG/ML CARTRIDGE 3 MG IVPUSH (15:53)
--- NOTE | 2024-01-20 17:51 | PC.NURSE ---
pt transported to OR at this time. production control supervisor/hub notified/aware that pt will be transported to OR instead of admission bed at this time.
--- NOTE | 2024-01-20 18:07 | PM.UROCN ---
History of Present Illness Consult details Consult date: 01/20/24 Narrative: CC: Mid left ureteric stone 38-year-old female Sharp pain radiating to the left into the left lower abdomen. Woke patient from sleep Pain 11/25 prior to medication Has responded to medication Denies fever, chills, dysuria or hematuria Imaging CT - A 4.5 mm x 3.0 mm calculus is present in the proximal left ureter at the level of L4-L5 (series 4 image 410). Marked left hydronephrosis and moderate proximal left ureterectasis is present. A 5 mm calculus is present in the more proximal left ureteral calculus. A 6 mm calculus is present present in the extrarenal left pelvis Creatinine 0.9, calcium 9.2, WBC 9.2 Discussed plan for cystoscopy, left retrograde, left ureteroscopy with laser lithotripsy and stent placement Review of Systems Constitutional: Constitutional: Reports as per HPI and Reports no additional constitutional complaints Cardiovascular: Cardiovascular: Reports as per HPI and Reports no additional cardiovascular complaints Respiratory: Respiratory: Reports as per HPI and Reports no additional respiratory complaints Gastrointestinal: Gastrointestinal: Reports as per HPI and Reports no additional gastrointestinal complaints Genitourinary: Genitourinary: Reports as per HPI Musculoskeletal: Musculoskeletal: Reports no additional musculoskeletal complaints and Reports as per HPI Neurologic: Reports system reviewed and no additional complaints, except as documented and Reports as per HPI [facility] Past Medical History Medical History Depression Renal calculi Numbness and tingling of both lower extremities 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 Family History Family History Father CKD (chronic kidney disease) Mother CHF (congestive heart failure) Coronary artery disease Surgical History Surgical History Hx of cystoscopy Social History Social History Household Members: Spouse and Children [facility] Do you presently have visiting nurse or other home services: No Alcohol intake: never Patient Tobacco Use Status: Former Tobacco user Tobacco use type: Cigarette Cigarettes Per Day: 3 Smoked in Last 30 Days: No e-Cigarette/Vaping Use: Never Used Second Hand Smoke Exposure: Yes Use of substances other than those prescribed or required for medical reasons: Yes Substance Use Type: Marijuana Advance Directives: Yes Advance Directives on File: Yes Advance Directives Date on File: 06/06/21 Do you have a plan to hurt others: No Plan Patient : No service: No Current occupational status: employed 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 Current occupational exposures/hazards: No Cognitive needs: No Hearing needs: No Vision needs: Yes (glasses) Meds Allergies Allergy/AdvReac Type Severity Reaction Status Date / Time sertraline AdvReac Intermediate suicidal Verified 01/20/24 00:07 ideation sulfamethoxazole AdvReac Intermediate yeast Verified 01/20/24 00:07 [From Bactrim] infection trimethoprim [From Bactrim] AdvReac Intermediate yeast Verified 01/20/24 00:07 infection Active Medications: Current Medications Acetaminophen (Ofirmev) 1,000 mg in 100 mls @ 400 mls/hr IV PREOP ONE Stop: 01/20/24 18:21 Ketorolac Tromethamine (Ketorolac Tromethamine 15 Mg/Ml Vial) 15 mg IVPUSH Q6H PRN PRN Reason: Pain, Moderate(Pain Scale 4-6) Last Admin: 01/20/24 13:26 Dose: 15 mg Morphine Sulfate (Morphine Sulfate 4 Mg/Ml Cartridge) 3 mg IVPUSH Q3H PRN; Protocol PRN Reason: Pain, Moderate(Pain Scale 4-6) Last Admin: 01/20/24 15:53 Dose: 3 mg Oxycodone HCl (Oxycodone Hcl Immed Release 5 Mg Tablet) 5 mg PO Q4H PRN PRN Reason: Pain, Mild (Pain Scale 1-3) Last Admin: 01/20/24 15:30 Dose: 5 mg Home Medications ?Medication ?Instructions ?Recorded ?Confirmed ?Last Taken ?Type hydroxyzine HCl 25 mg tablet 25 mg PO BEDTIME PRN anxiety 01/20/24 01/20/24 01/19/24 History Physical Exam Vital Signs: Vital Signs: Last Vital Signs Temp 99.4 F 01/20/24 18:01 Pulse 60 01/20/24 18:01 Resp 20 01/20/24 18:01 BP 126/75 01/20/24 18:01 Pulse Ox 100 11/04/24 18:01 O2 Del Method Room Air 01/20/24 18:01 BMI result Body Mass Index 32.6 Const: General: cooperative, healthy appearing, comfortable and no acute distress Orientation/consciousness: patient oriented x3 HEENT: Face and sinus: Yes normal facial exam Mouth: moist mucous membranes Neck: Neck: Yes normal visual inspection, Yes full ROM and Yes trachea midline Chest: Chest palpation & inspection: normal inspection of the chest Resp: Effort & Inspection: normal respiratory effort, able to speak in complete sentences and no respiratory distress GI: Inspection: Yes normal to inspection Back/Spine/Pelvis: Cervical Spine: normal cervical lordosis Thoracic/Lumbar Spine: thoracic and lumbar spine normal to inspection Skin: General skin exam: no rashes or lesions noted Neuro: General: patient oriented x3, tone normal and moves all extremities Extrem: General: Yes normal to inspection and Yes capillary refill normal Results Labs 01/20/24 00:15 01/20/24 00:15 Labs: Abnormal lab results 01/20/24 01/20/24 Range/Units 00:15 03:07 RBC 4.12 L (4.20-5.50) X10*6/uL Hgb 11.2 L (12.0-16.0) g/dl Hct 33.6 L (37.0-47.0) % Eos % (Auto) 4.2 H (0-4) % Chloride 110 H (96-108) mmol/L Carbon Dioxide 21 L (22-29) mmol/L Lipase 199 H (8-78) U/L Urine Blood Small (1+) H (Negative) Ur Leukocyte Esterase Trace H (Negative) Urine RBC 6-10 H (0-2) /HPF Urine WBC 6-10 H (0-5) /HPF Short CBC 01/20/24 Range/Units 00:15 WBC 9.2 (4.8-10.8) X10*3/uL Hgb 11.2 L (12.0-16.0) g/dl Hct 33.6 L (37.0-47.0) % Plt Count 289 (160-400) X10*3/uL BMP 01/20/24 00:15 Sodium 140 Potassium 4.4 Chloride 110 H Carbon Dioxide 21 L BUN 14 Creatinine 0.91 Calcium 9.2 Liver Function 01/20/24 Range/Units 00:15 Total Bilirubin 0.2 (0.0-1.0) mg/dL Direct Bilirubin < 0.2 (0.0-0.5) mg/dL AST 24 (5-31) U/L ALT 29 (0-31) U/L Alkaline Phosphatase 105 (39-117) U/L Albumin 3.7 (3.5-5.0) g/dL Urine 01/20/24 Range/Units 03:07 Urine Color Yellow Urine Appearance Clear Urine pH 6.0 (5.0-9.0) Ur Specific [place] 1.015 (1.005-1.025) Urine Protein Negative (Neg-Trace) mg/dL Urine Glucose (UA) Negative (Negative) mg/dL All other labs normal. Assessment and Plan (1) Calcium oxalate stones: Status: Acute (2) Ureteral colic: Status: Acute (3) Obstructive nephropathy: Status: Acute Plan Ureteroscopy We discussed the nature of the decision and reasonable alternatives for performing ureteroscopy. Options such as medical therapy were discussed. Interventions include chemical dissolution, ESWL, ureteroscopy with laser lithotripsy and stent placement, PCNL. The relative uncertainties and benefits related to each alternate procedure were adequately discussed. General surgical risks including, but not limited to - pain, bleeding, infection, myocardial infarction, pulmonary embolus, deep vein thrombosis and cerebrovascular accident which may result in further hospitalization were discussed. Full disclosure of the procedure as well as all major risks, benefits and complications were discussed including but not limited to damage to the urethra, bladder and kidney infection, damage to the ureter, stent migration or malposition, scarring to the renal pelvis, remnant stone fragments, subsequent stone passage with need for secondary procedures. The overall secondary procedure rate is approximately 10-15%. The overall clearance rate is approximately 90-95%. Success of the procedure in the short-term does not necessarily guarantee that long-term success will be maintained. Suitable follow up will need to be maintained. The patient showed understanding of discussion and wishes to proceed with - cystoscopy, retrograde, ureteroscopy, possible lithotripsy/stone basketing and stent on the left side Procedures Date of Service Date of Service: 01/20/24
--- NOTE | 2024-01-20 19:10 | P.CONAN_ITS ---
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 Family History Family History Father CKD (chronic kidney disease) Mother CHF (congestive heart failure) Coronary artery disease Family history of problems with anesthesia: No Surgical History Surgical History Hx of cystoscopy History of Problems with Anesthesia: No Social History Social History Household Members: Spouse and Children [facility] Do you presently have visiting nurse or other home services: No Alcohol intake: never Patient Tobacco Use Status: Former Tobacco user Tobacco use type: Cigarette Cigarettes Per Day: 3 Smoked in Last 30 Days: No e-Cigarette/Vaping Use: Never Used Second Hand Smoke Exposure: Yes Use of substances other than those prescribed or required for medical reasons: Yes Substance Use Type: Marijuana Advance Directives: Yes Advance Directives on File: Yes Advance Directives Date on File: 06/06/21 Do you have a plan to hurt others: No Plan Patient : No service: No Current occupational status: employed Current occupation: [employer] Current occupational exposures/hazards: No Cognitive needs: No Hearing needs: No Vision needs: Yes (glasses) Meds Allergies Allergy/AdvReac Type Severity Reaction Status Date / Time sertraline AdvReac Intermediate suicidal Verified 01/20/24 00:07 ideation sulfamethoxazole AdvReac Intermediate yeast Verified 01/20/24 00:07 [From Bactrim] infection trimethoprim [From Bactrim] AdvReac Intermediate yeast Verified 01/20/24 00:07 infection Active Medications: Current Medications Ketorolac Tromethamine (Ketorolac Tromethamine 15 Mg/Ml Vial) 15 mg IVPUSH Q6H PRN PRN Reason: Pain, Moderate(Pain Scale 4-6) Last Admin: 01/20/24 13:26 Dose: 15 mg Morphine Sulfate (Morphine Sulfate 4 Mg/Ml Cartridge) 3 mg IVPUSH Q3H PRN; Protocol PRN Reason: Pain, Moderate(Pain Scale 4-6) Last Admin: 01/20/24 15:53 Dose: 3 mg Oxycodone HCl (Oxycodone Hcl Immed Release 5 Mg Tablet) 5 mg PO Q4H PRN PRN Reason: Pain, Mild (Pain Scale 1-3) Last Admin: 01/20/24 15:30 Dose: 5 mg Home Medications ?Medication ?Instructions ?Recorded ?Confirmed ?Last Taken ?Type hydroxyzine HCl 25 mg tablet 25 mg PO BEDTIME PRN anxiety 01/20/24 01/20/24 01/19/24 History Exam Height,Weight and Vital Signs: Height 5 ft 4 in Weight 86.183 kg Last Vital Signs Temp 99.4 F 01/20/24 18:01 Pulse 60 01/20/24 18:01 Resp 20 01/20/24 18:01 BP 126/75 01/20/24 18:01 Pulse Ox 100 01/20/24 18:01 O2 Del Method Room Air 01/20/24 18:01 Pertinent Lab Results Pertinent Lab Results: Laboratory Tests 01/20/24 01/20/24 00:15 03:07 WBC 9.2 RBC 4.12 L Hgb 11.2 L Hct 33.6 L MCV 81.6 MCH 27.2 MCHC 33.3 RDW 14.4 Plt Count 289 MPV 9.8 Immature Gran % (Auto) 0.3 Neut % (Auto) 61.4 Lymph % (Auto) 24.4 [place] % (Auto) 9.2 Eos % (Auto) 4.2 H Baso % (Auto) 0.5 Lymph # (Auto) 2.3 [place] # (Auto) 0.9 Eos # (Auto) 0.4 Baso # (Auto) 0.1 Abs Immat Gran (auto) 0.03 Absolute Neuts (auto) 5.7 Absolute Nucleated RBC 0.000 Nucleated RBC % (auto) 0.0 Sodium 140 Potassium 4.4 Chloride 110 H Carbon Dioxide 21 L Anion Gap 13 BUN 14 Creatinine 0.91 Estim Creat Clear Calc 89.8 Estimated GFR > 60 Random Glucose 108 Calcium 9.2 Total Bilirubin 0.2 Direct Bilirubin < 0.2 AST 24 ALT 29 Alkaline Phosphatase 105 Total Protein 6.8 Albumin 3.7 Lipase 199 H Beta HCG, Quant < 2 Urine Color Yellow Urine Appearance Clear Urine pH 6.0 Ur Specific [place] 1.015 Urine Protein Negative Urine Glucose (UA) Negative Urine Ketones Negative Urine Blood Small (1+) H Urine Nitrite Negative Ur Leukocyte Esterase Trace H Urine RBC 6-10 H Urine WBC 6-10 H Ur Squamous Epith Cells 6-10 Urine Bacteria 3+ Hyaline Casts 0-2 Airway Mallampati Class: III TM Dist: >3cm Neck ROM: Full Heart: RRR Lungs: CTA Assessment and Plan Final Anesthetic Review Family History of Problems with Anesthesia: No History of Problems with Anesthesia: No NPO: Yes ASA Class: III and Emergency Final Preanesthetic Review: Meds/Allgs Chart Reviewed, Consent Obtained/Reviewed and Anes Risks/Benef Reviewed Patient Risk: Intermediate Procedure Risk: Low Anesthetic Plan Anesthetic Plan: GA Disposition: Standard PACU
--- NOTE | 2024-01-20 19:32 | MHC.SHP ---
Pre-Procedural Eval Section A - 24 Hr Update-Section A only Date of Service: 01/20/24 The patient is an INPATIENT: Yes Changes since office visit: No Cold of Flu in the past 2 weeks, No New Medical Problems, No Changes in Medication and No Patient answered all questions The patient has been examined within 24 hours of the surgical procedure. The History & Physical has been completed within 30 days and I have reviewed it.: Yes Section B - Complete if H&P > 30 days Chief Complaint: left ureteric stone Details of Present Illness: Cystoscopy, left retrograde left ureteroscopy with laser lithotripsy and stent placed Allergies: Allergies Allergy/AdvReac Type Severity Reaction Status Date / Time sertraline AdvReac Intermediate suicidal Verified 01/20/24 00:07 ideation sulfamethoxazole AdvReac Intermediate yeast Verified 01/20/24 00:07 [From Bactrim] infection trimethoprim [From Bactrim] AdvReac Intermediate yeast Verified 01/20/24 00:07 infection Review of Systems Sugical H&P ROS: Negative: Constitution, Cardiovascular, Respiratory, Neurological, Psychiatric, Hem-Onc, Allergic/Immunologic, Gastrointestinal, Genitourinary, Musculoskeletal, Integumentary, Endocrine and Eyes/Ears/Nose/Throat Exam Surgical H&P Exam: Normal: HEENT, Normal: Heart, Normal: Lungs, Normal: Extremities, Normal: Abdomen, Normal: Skin and Normal: Neurological Plan Diagnosis/Plan: Unchanged I have reviewed the history and physical and performed a pertinent physical examination on my patient. No changes have occurred unless specified. Time Spent With Patient Time: Total time managing care of this patient today ____ minutes.
--- NOTE | 2024-01-20 20:26 | P.DS_ITS ---
DS: Providers Provider Date of Service: 01/20/24 Date of admission: 01/20/24 13:08 Date of discharge: 01/20/24 Primary care physician: Kindra Huynh MD Admitting clinician: Yonis Wagner Discharging clinician: Yonis Wagner DS: Diagnosis Discharge Diagnosis (1) Calcium oxalate stones: Status: Acute (2) Ureteral colic: Status: Acute (3) Obstructive nephropathy: Status: Acute DS: Summary Hospital Course Hospital Course: Admit Saturday with procedure left ureteroscopy with laser lithotripsy and stent placement Status at Discharge Functional status at discharge: independent ambulation Overall status at discharge: patient is back to baseline Time Attestation Total time managing care of this patient today: 25 mintues. Discharge Coordination Time (in mins): 15 Specific discharge activities: 15 Quality: Safe Use of Opioids Does Pt have an Active Cancer Diagnosis on the Problem List?: No Quality: Stroke Does the patient have a stroke diagnosis?: No Physical Exam Vital Signs: Vital Signs: Last Vital Signs Temp 99.4 F 01/20/24 18:01 Pulse 60 01/20/24 18:01 Resp 20 01/20/24 18:01 BP 126/75 01/20/24 18:01 Pulse Ox 100 01/20/24 18:01 O2 Del Method Room Air 01/20/24 18:01 BMI result Body Mass Index 32.6 DS: Data Data Completed and Pending Completed studies during hospitalization [Text1]: Procedures Dilation of Left Ureter with Intraluminal Device, Via Natural or Artificial Opening Endoscopic (06/05/21) Extirpation of Matter from Left Ureter, Via Natural or Artificial Opening Endoscopic (06/05/21) Fluoroscopy of Left Kidney, Ureter and Bladder (06/05/21) Labs on day of discharge: Laboratory Results - last 24 hr 01/20/24 01/20/24 00:15 03:07 WBC 9.2 RBC 4.12 L Hgb 11.2 L Hct 33.6 L MCV 81.6 MCH 27.2 MCHC 33.3 RDW 14.4 Plt Count 289 MPV 9.8 Immature Gran % (Auto) 0.3 Neut % (Auto) 61.4 Lymph % (Auto) 24.4 [place] % (Auto) 9.2 Eos % (Auto) 4.2 H Baso % (Auto) 0.5 Lymph # (Auto) 2.3 [place] # (Auto) 0.9 Eos # (Auto) 0.4 Baso # (Auto) 0.1 Abs Immat Gran (auto) 0.03 Absolute Neuts (auto) 5.7 Absolute Nucleated RBC 0.000 Nucleated RBC % (auto) 0.0 Sodium 140 Potassium 4.4 Chloride 110 H Carbon Dioxide 21 L Anion Gap 13 BUN 14 Creatinine 0.91 Estim Creat Clear Calc 89.8 Estimated GFR > 60 Random Glucose 108 Calcium 9.2 Total Bilirubin 0.2 Direct Bilirubin < 0.2 AST 24 ALT 29 Alkaline Phosphatase 105 Total Protein 6.8 Albumin 3.7 Lipase 199 H Beta HCG, Quant < 2 Urine Color Yellow Urine Appearance Clear Urine pH 6.0 Ur Specific [place] 1.015 Urine Protein Negative Urine Glucose (UA) Negative Urine Ketones Negative Urine Blood Small (1+) H Urine Nitrite Negative Ur Leukocyte Esterase Trace H Urine RBC 6-10 H Urine WBC 6-10 H Ur Squamous Epith Cells 6-10 Urine Bacteria 3+ Hyaline Casts 0-[address] scan - abdomen: Attestation: I personally reviewed and interpreted this imaging study as follows: Radiologist's impression: ITS Impressions Abdomen/Pelvis CT 01/20/24 00:26 IMPRESSION: 1. Single obstructing 4.5 mm x 3.0 mm calculus within the proximal left ureter at the level of L4-L5. Marked left hydronephrosis and moderate left ureterectasis. Multiple nonobstructing left renal calculi as detailed above including a 6 mm calculus in the left extrarenal pelvis. Mild left perinephric inflammatory changes are present. No discrete left perinephric fluid collections. 2. Normal appendix. 3. Single 3.8 cm x 2.0 cm x 2.0 cm region of macroscopic fat density in association with the right ovary unchanged compared with 12/01/2021 and suspicious for an ovarian dermoid cyst. Electronically signed by: Isaiah Vásquez MD 01/20/2024 02:30 AM [facility] [place] Plan Discharge Anticipated Discharge Date/Time: 01/20/24 20:23 Patient Disposition: Home, Self-Care Discharge Diagnosis: left ureteric stones Referrals: Kindra Gan MD [Primary Care Provider] - None Discharge Medications: New tamsulosin 0.4 mg capsule 0.4 mg PO BEDTIME 14 Days Qty: 14 0RF phenazopyridine [Pyridium] 100 mg tablet 100 mg PO TID PRN (Reason: Spasm) 4 Days Qty: 12 0RF naproxen 500 mg tablet 500 mg PO BID PRN (Reason: pain) 7 Days Qty: 14 0RF oxycodone 5 mg tablet 5 mg PO Q8H PRN (Reason: pain) 3 Days Qty: 8 0RF Rx Instructions: Partial Fill upon patient request. Continued hydroxyzine HCl 25 mg tablet 25 mg PO BEDTIME PRN (Reason: anxiety) Discharge Orders: Discharge Order (Routine); Ordered 01/20/24 Ordered By: Yonis Wagner Diet: Advance to usual diet Activity on Discharge: As tolerated Stand Alone Forms: Patient Portal Discharge page Print Language: Com[place]an Care Plan Goals: Stones Health Concerns: Stones Plan of Treatment: Stones Assessment: Stones Patient Instructions: Ureteroscopy (DC)
--- NOTE | 2024-01-20 20:28 | W.PM.OPN ---
Operative Note Operative Note Date of Service: 01/20/24 Narrative: PreOperative Diagnosis: Left proximal ureteric stone Post Operative Diagnosis: Left proximal ureteric stone Procedure: - cystoscopy, left retrograde - left dilatation of ureteric orifice under fluoroscopy - left ureteroscopy, laser lithotripsy - left stent placement Surgeon: Dr Yonis Wagner Anesthesia: General Indications for procedure: Presentation through emergency room with left-sided flank pain. CT with left proximal ureteric stones Procedure: After informed consent was verified patient was brought to the operating placed in supine position. Anesthesia was administered per protocol. Patient was placed in modified dorsal lithotomy position and prepped and draped in a sterile fashion. Safety pause time-out and side of surgery confirmed. Antibiotics confirmed. 22 Ivor[place] cystoscope was inserted per urethra. Bladder was normal in its entirety. Both ureteric orifices were in normal position. The left ureteric orifice was cannulated and a retrograde examination was performed. Filling defects seen at left proximal ureter into kidney. A Sensor guidewire was placed up to the level of the renal pelvis under fluoroscopy. Stone appeared to move back into the renal pelvis. The rigid cystoscope was removed and the inner cannula of ureteric access sheath was used under fluoroscopy to dilate the ureteric orifice. The rigid ureteral scope was placed alongside the wire. No stone was found throughout the length of the ureter. Decision made to place flexible ureter. The digital flexible ureteral scope was placed. Stones encountered within the renal pelvis. Using the 270 nm holmium laser fiber the 2 stones encountered were broken into small pieces. At the completion of the stone procedure a Sensor wire was placed back into the renal pelvis. A 6 [place]vorian by 24 cm double-J stent was placed into the renal pelvis and bladder under a combination of fluoroscopy and direct visualization. The symphisis pubis was used as a radiographic marker to release the stent and good coil was seen within the bladder confirming position The bladder was emptied. The patient tolerated the procedure well and was extubated in the operating room, and transferred in stable condition to the recovery area. Pathology: No known Drains: Stent as described [id number] cystourethroscopy, with ureteroscopy and/or pyeloscopy, with lithotripsy, and ureteral catheterization for steerable vacuum aspiration of the kidney, collecting system, ureter, bladder, and urethra if applicable (must use a steerable ureteral catheter).
[2024-01-20] MEDS: Phenazopyridine HCL 100 MG TABLET PO (20:51)
--- NOTE | 2024-01-20 20:51 | HO.POSTANES ---
Post Anesthesia Evaluation Post Anesthesia Evaluation Date of Service: 01/20/24 Vital Signs: Vital Signs Temp Pulse Resp BP Pulse Ox O2 Del Method 01/20/24 20:45 81 16 117/59 L 98 Room Air 01/20/24 20:40 84 16 123/67 96 Room Air 01/20/24 20:37 98.3 F 85 16 119/72 98 Room Air 01/20/24 18:01 99.4 F 60 20 126/75 100 Room Air 01/20/24 16:37 98.9 F 55 16 115/65 97 Room Air 01/20/24 14:00 97.4 F 68 15 113/57 L 100 Room Air 01/20/24 13:08 97.2 F 63 18 102/49 L 100 Room Air 01/20/24 09:39 98.6 F 53 16 104/68 97 Room Air Anesthesia: General LMA Mental Status: Awake Pain Control: Satisfactory Nausea/Vomiting: None Hydration: Adequate Anesthesia-Related Issues: No Anes. Related Issues
== END 2024-01-20 21:07 | disposition home or self-care (01) | DRG 465 ==
LOC: HO.ED 01-20 07:36 → HO.EDOVER 01-20 13:14 → HO.S3 01-20 17:09
PROVIDERS: Admitting Provider Urology; Emergency Provider Internal Medicine; PCP Internal Medicine; Visit Provider Urology
PROC: 0TF78ZZ Fragmentation in Left Ureter, Via Natural or Artificial Opening Endoscopic (ICD-10-PCS; principal; 2024-01-20 19:30)
DX: N20.1 Calculus of ureter (principal); Z79.899 Other long term (current) drug therapy; Z87.891 Personal history of nicotine dependence
CPT/HCPCS: 36415; 74176; 80053; 81001; 82248; 83690; 84702; 85025; 87086; 99285; C1758; C1769; C2617; J1171; J1885; J1956; J2003; J2250; J2270; J2405; J2704; J3010

== ENCOUNTER → 2024-01-20 13:08 | Outpatient (BNV) | payer OTHER, SELFPAY | PROVIDERS: Admitting Provider Urology; Emergency Provider Internal Medicine; PCP Internal Medicine; Visit Provider Urology | DX: N20.0 Calculus of kidney (principal); N23 Unspecified renal colic; N13.8 Other obstructive and reflux uropathy; N20.1 Calculus of ureter | CPT/HCPCS: 52356; 74420; 99222 ==

== ENCOUNTER 2024-02-05 09:49 | Outpatient (AMB) | payer OTHER, SELFPAY ==
--- NOTE | 2024-02-05 09:56 | MHC.OFFVIS ---
Intake Visit Reasons: Stent removal Intake Note: Patient is present for STENT REMOVAL Urology Medication:TAMSULOSIN Antibiotic Allergy:NONE Blood Thinner:NONE Clean Room Technician Required: No Allergies sertraline Adverse Reaction (Intermediate, Verified 02/05/24 10:58) suicidal ideation sulfamethoxazole [From Bactrim] Adverse Reaction (Intermediate, Verified 02/05/24 10:58) yeast infection trimethoprim [From Bactrim] Adverse Reaction (Intermediate, Verified 02/05/24 10:58) yeast infection Medication List - Last Reconciled 02/05/24 by JOHN Chong-ROMAINE hydrocortisone 2.5% (Proctosol HC) 1 appl LA BID-QID PRN 30 days hydroxyzine HCl 25 mg PO BEDTIME PRN naproxen 500 mg PO BID PRN 7 days HPI Comments Details: Swetha is a pleasant female patient of Dr. Jones. She has a past medical history of depression, nephrolithiasis, and Hernandez's palsy. She presents to the office today for cystoscopy with left-sided ureteral stent removal. Of note, patient underwent cystoscopy, left retrograde. left dilatation of ureteric orifice under fluoroscopy, left ureteroscopy, laser lithotripsy, left stent placement with Dr. Wagner 01/20/24 for left proximal ureteric stones. In discussion with the patient today she reports a longstanding history of nephrolithiasis as noted below. She reports having passed fragments however did not bring them with her today as she forgot. We discussed bringing them for stone analysis. In office cystoscopy was performed and left ureteral stent was removed without difficulty. We discussed importance of adequate hydration relation to nephrolithiasis as well as overall health and well-being. She discusses her ongoing issues with hemorrhoids and has followed up with her PCP however does not feel this has not been helpful. 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 She is requesting referral to general surgery for further assessment evaluation. She otherwise offers no other issues or concerns at this time. Nephrolithiasis Prior procedure May 2021 Intervention - left USR 06/06, 10/06 left ureteroscopy with laser lithotripsy, 03/09 ureteroscopy left side residual Stone composition - mixed calcium oxalate with apatite - confirmed 10/06 - suppression antibiotics for 3 months Imaging - 09/06 ultrasound with large stone left side 1 cm - 01/06 CT scan left lower pole smudging - 06/07 renal ultrasound fragment left side - 12/08 KUB with stones - 09/08 KUB left stone collection - stable Therapeutic plan - interval surveillance [facility] Medical History (Updated 02/05/24 @ 11:04 by Tova Contreras [facility]) Depression Renal calculi Numbness and tingling of both lower extremities 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 Surgical History Hx of cystoscopy Family History Father CKD (chronic kidney disease) Mother CHF (congestive heart failure) Coronary artery disease Social History Household Members: Spouse and Children [facility] Do you presently have visiting nurse or other home services: No Alcohol intake: never Patient Tobacco Use Status: Former Tobacco user Tobacco use type: Cigarette Cigarettes Per Day: 3 e-Cigarette/Vaping Use: Never Used Second Hand Smoke Exposure: Yes Substance Use Type: Marijuana Advance Directives Date on File: 06/06/21 service: No Current occupational status: employed 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 Current occupational exposures/hazards: No Cognitive needs: No Hearing needs: No Vision needs: Yes (glasses) Review of Systems Const All systems reviewed & are unremarkable except as noted in HPI and below Physical Exam Const General: cooperative, healthy appearing, comfortable, no acute distress, well developed, alert and awake Orientation/consciousness: patient oriented x3 Limitations: no limitations HEENT Head: Yes normal to inspection, Yes normocephalic and Yes atraumatic Ears: hearing grossly normal bilaterally Eyes General: appearance normal, both eyes and all related structures Neck Neck: Yes normal visual inspection and Yes trachea midline Chest Chest palpation & inspection: normal inspection of the chest Resp Effort & Inspection: normal respiratory effort and able to speak in complete sentences Cardio Rate: regular rate GI Inspection: Yes normal to inspection General: Yes no CVA tenderness Speculum Exam - Vagina: normal appearance of the vagina Back/Spine/Pelvis Back: no CVA tenderness Skin General skin exam: no rashes or lesions noted Neuro General: patient oriented x3 Extrem General: Yes normal to inspection Psych Appearance: grossly normal and well kempt Mental Status: mental status grossly normal Speech and movement: Normal speech and movement present and Clear speech present Affect: normal affect Attitude: cooperative Thought process: Normal thought process present Thought content: Normal thought content present Insight: Fair insight present (Psych) Judgement: Fair judgement present (Psych) Office Procedures Cystoscopy Consent Discussed risk and benefit or proposed procedure with the patient. Information consent for procedure given to the patient. Discussed technical aspects, risks, benefits and alternatives in full. Addressed all of the patient's questions and concerns regarding the procedure. The patient demonstrated knowledge and understanding. They wish to proceed with this procedure. Preparation The patient was prepped in the usual manner. A radial router operator was present and in the room. Genitalia was prepped with betadine solution in a sterile manner. Lidocaine Jelly 2% was placed into the urethra and 16Fr flexible Olympus cystoscope was inserted into the meatus after adequate lubrication. Cystoscopy Consent Discussed risk and benefit or proposed procedure with the patient. Information consent for procedure given to the patient. Discussed technical aspects, risks, benefits and alternatives in full. Addressed all of the patient's questions and concerns regarding the procedure. The patient demonstrated knowledge and understanding. They wish to proceed with this procedure. Preparation The patient was prepped in the usual manner. A radial router operator was present and in the room. Genitalia was prepped with betadine solution in a sterile manner. Lidocaine Jelly 2% was placed into the urethra and 16Fr flexible cystoscope was inserted into the meatus after adequate lubrication. Procedure A well lubricated 16 Croatian cystoscope was placed No abnormality noted of urethra during placement Indwelling stent seen within bladder emerging from left ureteric orifices The stent was grasped with a 3 prong grasper and removed without difficulty Patient tolerated procedure well. [id number] with stent removal DISPOSABLE SCOPE URO-G FLEXIBLE SCOPE Procedure code (CPT) selection complete Results AMB Urinalysis, Automated UA Leukoctes 125 Amanda/uL Last Edit by FREDDY Leroy on 02/05/24 10:09 UA Nitrite Negative Last Edit by FREDDY Leroy on 02/05/24 10:09 UA Urobilinogen 0.2 mg/dL Last Edit by FREDDY Leroy on 02/05/24 10:09 UA Protein 300 mg/dL Last Edit by FREDDY Leroy on 02/05/24 10:09 UA pH 6.0 Last Edit by Von Shields [facility] on 02/05/24 10:09 UA Blood 200 Dominguez/uL Last Edit [facility] on 02/05/24 10:09 UA Specific [place] 1.030 Last Edit by Von Shields [facility] on 02/05/24 10:09 UA Ketone Negative Last Edit by Von Shields [facility] on 02/05/24 10:09 UA Bilirubin 0 mg/dL Last Edit by Von Shields [facility] on 02/05/24 10:09 UA Glucose 0 mg/dL Last Edit by Von Shields [facility] on 02/05/24 10:09 Results Reviewed Results Reviewed: Laboratory Last Values Urine pH (Auto) 6.0 02/05/24 10:09 Specific [place] (Auto) 1.030 02/05/24 10:09 Urine Protein (Auto) 300 mg/dL 02/05/24 10:09 Glucose (UA)(Auto) 0 mg/dL 02/05/24 10:09 Urine Ketones (Auto) Negative 02/05/24 10:09 Urine Blood (Auto) 200 Dominguez/uL 02/05/24 10:09 Urine Nitrite (Auto) Negative 02/05/24 10:09 Urine Bilirubin (Auto) 0 mg/dL 02/05/24 10:09 Urine Urobilinogen (Auto) 0.2 mg/dL 02/05/24 10:09 Leukocyte Esterase (Auto) 125 Amanda/uL 02/05/24 10:09 Assessment & Plan Assessment & Plan (1) Renal calculi: Code(s): N20.0 - Calculus of kidney Category: Medical Plan In office urinalysis results reviewed with the patient today; as noted above. In office cystoscopy was performed and left ureteral stent was removed without difficulty. Patient tolerated procedure well. Discussed, educated, and stressed the importance of adequate hydration in relation to nephrolithiasis as well as overall health and well-being. Referral submitted for further assessment evaluation of hemorrhoids per patient request. Will obtain renal ultrasound in 3 months. Follow-up in 3 months with imaging to be completed prior; or sooner with any issues, concerns, and or questions. Orders: Orders AMB Urinalysis Automated Today Z13.9 - Encounter for screening, unspecified US renal BI 3 Months N20.0 - Calculus of kidney AMB Cystoscopy Today N20.0 - Calculus of kidney Referrals General Surgery Referral K64.4 - Residual hemorrhoidal skin tags Medications: New lidocaine HCl 2% 10 mL intra-urethral ONCE 10 mL 0RF N20.0 - Calculus of kidney nitrofurantoin monohyd/m-cryst 100 mg 100 mg PO ONCE 1 cap 0RF N20.0 - Calculus of kidney naproxen 500 mg PO ONCE 1 tab 0RF N20.0 - Calculus of kidney Patient Instructions: The patient had an opportunity to ask questions regarding the treatment plan. All questions were answered. Physical exam, labs, and imaging were discussed and reviewed in detail. As well as risks, benefits, and discussion of treatment choices. No major barriers to understanding were identified. The patient expressed understanding and agreement with the above treatment plan. The patient was made aware they should contact our office by phone for worsening of their current condition, the appearance of new symptoms, or with any questions or concerns. Compliance is encouraged with any medications and follow up testing that is ordered. It is a privilege to be allowed the opportunity to participate in? your urological care.? Again, if you have any questions or concerns If you have any questions or concerns please do not hesitate to contact me. The office is [phone]. This note is constructed using voice recognition software. While every effort has been made to ensure accuracy asset protection manager errors may have been included. Yours sincerely, KONSTANTIN Chong Coding Level of Care Code Est Pt Level 3 (74405) Diagnoses Renal calculi N20.0 CPT Codes Cystoscopy - CPT: 00483-Bojbjawuhl with stent removal ([id number])
== END 2024-02-05 10:37 | disposition home or self-care (01) ==
PROVIDERS: PCP Internal Medicine; Visit Provider Nurse Practitioner Family
DX: N20.0 Calculus of kidney (principal); K64.8 Other hemorrhoids; Z96.0 Presence of urogenital implants; Z13.9 Encounter for screening, unspecified
CPT/HCPCS: 52310; 99213

== ENCOUNTER → 2024-02-05 09:49 | Outpatient (BNVA) | payer OTHER, SELFPAY | PROVIDERS: PCP Internal Medicine; Visit Provider Nurse Practitioner Family | DX: N20.0 Calculus of kidney (principal); K64.4 Residual hemorrhoidal skin tags; Z46.6 Encounter for fitting and adjustment of urinary device | CPT/HCPCS: 52310; 81003; 99212 ==

== ENCOUNTER 2024-02-11 13:17 | Outpatient (AMB) | payer OTHER, SELFPAY ==
--- NOTE | 2024-02-11 13:18 | MHC.OFFVIS ---
Vital Signs 02/11/24 13:25 Height 5 ft 4 in Weight 212 lb BMI 36.4 BP 136/56 L Blood Pressure Location Rt brachial Position Sitting Pulse 92 Intake Visit Reasons: External hemorhoids Intake Note: Patient referred by Tova Lewis for external hemorrhoids. Present for 2m. Patient c/o: hydrocortisone 2.5% cr not helping. Bleeding. Reports constipation. Restaurant Recruiter Required: No Accompanied by: Self / Same As Patient Allergies sertraline Adverse Reaction (Intermediate, Verified 02/11/24 13:24) suicidal ideation sulfamethoxazole [From Bactrim] Adverse Reaction (Intermediate, Verified 02/11/24 13:24) yeast infection trimethoprim [From Bactrim] Adverse Reaction (Intermediate, Verified 02/11/24 13:24) yeast infection HPI Comments Details: Patient presents with a several month history of anorectal pain. She denies any change in her bowel habits although she has a history of constipation. She has not noticed any blood in the stool. She denies any anal receptive practice. She has never had colonoscopy before. She has noticed a small growth in the anal canal near where her symptoms are. Chart was reviewed and patient evaluate [facility] Medical History Depression Renal calculi Numbness and tingling of both lower extremities Paraparesis of both lower limbs Hrenandez's palsy Surgical History Hx of cystoscopy Family History Father CKD (chronic kidney disease) Mother CHF (congestive heart failure) Coronary artery disease Social History Household Members: Spouse and Children Housing: Condominium Do you presently have visiting nurse or other home services: No Alcohol intake: never Patient Tobacco Use Status: Former Tobacco user Tobacco use type: Cigarette Cigarettes Per Day: 3 e-Cigarette/Vaping Use: Never Used Second Hand Smoke Exposure: Yes Substance Use Type: Marijuana Advance Directives Date on File: 06/06/21 service: No Current occupational status: employed 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 Rectal exam demonstrates a very deep posterior anal fissure with a sentinel tag. Rectal exam was deferred secondary to patient's discomfort. No other gross pathology demonstrated. Assessment & Plan Assessment & Plan (1) Acute posterior anal fissure: Code(s): K60.0 - Acute anal fissure Category: Surgical Plan I discussed with the findings with the patient of posterior anal fissure. At onset, I think conservative therapy should be attempted which would include eating roughage, drinking more water, eating more roughage, raised brown, Metamucil/Citrucel, avoid prolonged sitting on the toilet seat when defecating, Sitz baths, topical xylocaine. I told the patient that if she follows this regimen, there is a high probability that her symptoms will improve. If she would have any hard stool/constipation, this will set her back. Patient understands. All questions answered. She will see me in a few weeks time to assess her progress or p.r.n.. Coding Level of Care Code New Pt Level 4 (11921) Diagnoses Acute posterior anal fissure K60.0
[2024-02-11 13:25] VITALS: BP 136/56; PULSE 92; BMI 36.4
== END 2024-02-11 13:37 | disposition home or self-care (01) ==
PROVIDERS: PCP Internal Medicine; Referring Provider Nurse Practitioner Family; Visit Provider Surgery
DX: K60.0 Acute anal fissure (principal)
CPT/HCPCS: 99204

== ENCOUNTER → 2024-02-11 13:17 | Outpatient (BNVA) | payer OTHER, SELFPAY | PROVIDERS: PCP Internal Medicine; Referring Provider Nurse Practitioner Family; Visit Provider Surgery | DX: K60.0 Acute anal fissure (principal); K64.4 Residual hemorrhoidal skin tags | CPT/HCPCS: 99202 ==

== ENCOUNTER 2024-03-23 08:58 | Outpatient (AMB) | payer OTHER, SELFPAY ==
--- NOTE | 2024-03-23 09:07 | A.OFFVIS_ITS ---
Intake Visit Reasons: 6 week follow up External hemorhoids Allergies sertraline Adverse Reaction (Intermediate, Verified 02/11/24 13:24) suicidal ideation sulfamethoxazole [From Bactrim] Adverse Reaction (Intermediate, Verified 02/11/24 13:24) yeast infection trimethoprim [From Bactrim] Adverse Reaction (Intermediate, Verified 02/11/24 13:24) yeast infection HPI Comments Details: Patient was for follow-up for posterior anal fissure. She is been very diligent about her bowel regimen. She is had marked improvement of posterior anal fissure symptoms. 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 Surgical History Hx of cystoscopy Family History Father CKD (chronic kidney disease) Mother CHF (congestive heart failure) Coronary artery disease Social History Household Members: Spouse and Children Housing: Condominium Do you presently have visiting nurse or other home services: No Alcohol intake: never Patient Tobacco Use Status: Former Tobacco user Tobacco use type: Cigarette Cigarettes Per Day: 3 e-Cigarette/Vaping Use: Never Used Second Hand Smoke Exposure: Yes Substance Use Type: Marijuana Advance Directives Date on File: 06/06/21 service: No Current occupational status: employed 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 Assessment & Plan Assessment & Plan (1) Acute posterior anal fissure: Code(s): K60.0 - Acute anal fissure Category: Surgical Plan Patient was been commended for her conscientiousness in keeping her stools soft and avoiding constipation. She is continue local therapy and bowel regime and will otherwise follow-up p.r.n.. All questions answered. Coding Level of Care Code Est Pt Level 4 (81986) Diagnoses Acute posterior anal fissure K60.0
--- OUTSIDE RECORDS SUMMARY | 2024-03-23 09:20 | XMS_ITS ---
Author Organization [facility], Address [address] [place] [address] Care Team Providers Care Can Tender Name Role Phone Ximena Berrios [facility] [phone] ALLERGIES, ADVERSE REACTIONS, ALERTS Substance Code Code System Type Reaction Severity Status Start Date End Date Bactrim 872626 RxNorm Drug allergy () 0 MEDICATIONS Medication Code Code System Start Date Stop Date Route Dosage Directions Fill Instructions ibuprofen RxNorm 12/01/2022 oral 1 baclofen 19721116 RxNorm 12/01/2022 oral 2 PROBLEMS Problem Name Code Code System Start Date End Date Stat us Dorsalgia, unspecified 993181348 [facility] 12/01/2022 Active ENCOUNTERS Encounter Diagnosis Code Code System Date Stat us Dorsalgia, unspecified 280705351 [facility] 12/01/2022 Ac tive IMMUNIZATIONS * None VITAL SIGNS Code Code System Vitals Name Date Value and Un its 8462-4 [facility] Blood Pressure-Diastolic 12/01/2022 82 mmHg 8480-6 [facility] Blood Pressure-Systolic 12/01/2022 1 17 mmHg 8867-4 [facility] Heart Rate 12/01/2022 78 /min 9279-1 [facility] Respiratory Rate 12/01/2022 16 /min 8310-5 [facility] Body Temperature 12/01/2022 97.9 F 67802-7 [facility] Oxygen Saturation 12/01/2022 97 % SOCIAL HISTORY * None PROCEDURES * None MEDICAL EQUIPMENT * Patient has no history of implantable devices ASSESSMENT * None TREATMENT PLAN Type Description Date MEDICATION Take 10 mg tablet 12/01/2022 MEDICATION Take 800 mg tablet 12/01/2022 APPOINTMENT If not feeling yennifer r in 10 day(s), please see your primary care physician. If you do not have a primary care physician, please return to this clinic. 12/01/2022 Lab Tests None GOALS * None HEALTH CONCERNS * No Health Concerns FUNCTIONAL AND COGNITIVE STATUS * None CONSULTATION NOTES * None DISCHARGE SUMMARY NOTES * None HISTORY AND PHYSICAL NOTES * None IMAGING NOTES * None LABORATORY REPORT NARRATIVE NOTES * None PATHOLOGY REPORT NARRATIVE NOTES * None PROGRESS NOTES * None
== END 2024-03-23 09:13 | disposition home or self-care (01) ==
PROVIDERS: PCP Internal Medicine; Visit Provider Surgery
DX: K60.0 Acute anal fissure (principal)
CPT/HCPCS: 99214

== ENCOUNTER → 2024-03-23 08:58 | Outpatient (BNVA) | payer OTHER, SELFPAY | PROVIDERS: PCP Internal Medicine; Visit Provider Surgery | DX: Z09 Encounter for follow-up examination after completed treatment for conditions other than malignant neoplasm (principal); K60.0 Acute anal fissure | CPT/HCPCS: 99212 ==

== ENCOUNTER 2024-05-22 13:35 | Outpatient (REF) | payer OTHER, SELFPAY ==
--- OUTSIDE RECORDS SUMMARY | 2024-05-22 15:12 | XMS_ITS | Clinical Summary ---
Author Organization [facility] ity Address [address] [place] [address] Care Team Providers Care Breakfast And Room Attendant Name Role Phone Unavailable Primary Care Provider Unavailabl e Social History Tobacco Use Types Packs/Day Years Used Date Smoking Tobacco: Never Assessed Comments Unknown Sex and Gender Information Value Date Recorded Sex Assigned at Not on file Legal Sex Female 10:29 PM EST Gender Identity Not on file Sexual Orientation Not on file Plan of Treatment Health Maintenance Due Date Last Done Comments DTaP,Tdap,and Td Vaccines (1 - Tdap) 2005 Hepatitis B Vaccines (1 of 3 - 19+ 3-dose series) 2005 Cervical Cancer Screening: P ap Smear 05/26/2007 COVID-19 Vaccine (2023-2 5 season) 2023 Influenza Vaccine (#1) 2023 HIB Vaccines Aged Out No longer eligi ble based on patient's age to complete this topic HPV Vaccines Aged Out No longer eligi ble based on patient's age to complete this topic Hepatitis A Vaccines Aged Out No long er eligible based on patient's age to complete this topic IPV Vaccines Aged Out No longer eligi ble based on patient's age to complete this topic MMR Vaccines Aged Out No longer eligi ble based on patient's age to complete this topic Meningococcal ACWY Vaccine Aged Out N o longer eligible based on patient's age to complete this topic Meningococcal B Vacine Aged Out No lo nger eligible based on patient's age to complete this topic Pneumococcal Vaccine: Pediat rics (0 to 5 Years) and At-Risk Patients (6 to 64 Years) Aged Out No longer eligible b ased on patient's age to complete this topic RSV Immunization Patients Un arjun 20 months Aged Out No longer eligible b ased on patient's age to complete this topic Varicella Vaccines Aged Out No longer eligible based on patient's age to complete this topic
== END 2024-05-22 13:36 | disposition home or self-care (01) ==
LOC: HO.US 13:35
PROVIDERS: PCP Internal Medicine; Visit Provider Nurse Practitioner Family
DX: Z13.89 Encounter for screening for other disorder (principal)

== ENCOUNTER 2024-08-31 08:57 | Outpatient (AMB) | payer OTHER, SELFPAY ==
--- NOTE | 2024-08-31 09:02 | MHC.OFFWIV ---
Intake Vital Signs 08/31/24 09:03 Height 5 ft 4 in Weight 213 lb BMI 36.6 BP 100/72 Blood Pressure Location Lt brachial Position Sitting Pulse 92 Pulse Source Pulse Oximeter Temp 98.5 F Temp Source Oral Pulse Oximetry (%) 99 Oxygen Delivery Method Room Air Intake Visit Reasons: EP Vaginal irritation, pain Patient Tobacco Use Status: Former Tobacco user Is last menstrual period known: Yes Allergies sertraline Adverse Reaction (Intermediate, Verified 08/31/24 09:07) suicidal ideation sulfamethoxazole [From Bactrim] Adverse Reaction (Intermediate, Verified 08/31/24 09:07) yeast infection trimethoprim [From Bactrim] Adverse Reaction (Intermediate, Verified 08/31/24 09:07) yeast infection HPI HPI Comments History of Present Illness Details History - The patient is a 39-year-old female presenting with symptoms suggestive of a yeast infection. - She reports using a douche twice and feminine wash, which she believes disrupted her vaginal pH balance, leading to symptoms. - Symptoms include a slight white creamy discharge without odor and swelling of the labia. - Previous self-treatment with Monistat was ineffective. - She experiences anxiety and occasionally uses hydroxyzine at night. Physical Exam General: Cooperative, healthy appearing, comfortable and no acute distress Orientation/consciousness: Patient oriented x3 Limitations: No limitations Head: Normal to inspection Ears: Hearing grossly normal bilaterally, external ears normal and TM's normal bilaterally Nose: Normal external nose present, Normal nares present and No nasal discharge present Face and sinus: Normal facial exam and Yes sinuses nontender Mouth: Normal oral and palatal mucosa present and moist mucous membranes Throat: Yes tonsils normal, Yes uvula midline. 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 Surgical History Hx of cystoscopy Family History Father CKD (chronic kidney disease) Mother CHF (congestive heart failure) Coronary artery disease Social History Household Members: Spouse and Children Housing: Condominium Do you presently have visiting nurse or other home services: No Alcohol intake: never Patient Tobacco Use Status: Former Tobacco user Tobacco use type: Cigarette Cigarettes Per Day: 3 e-Cigarette/Vaping Use: Never Used Second Hand Smoke Exposure: Yes Substance Use Type: Marijuana Advance Directives Date on File: 06/06/21 service: No Current occupational status: employed 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 Current occupational exposures/hazards: No Cognitive needs: No Hearing needs: No Vision needs: Yes (glasses) Review of Systems Const All systems reviewed & are unremarkable except as noted in HPI and below Physical Exam Vital Signs: Last Vital Signs Temp 98.5 F 08/31/24 09:03 Pulse 92 08/31/24 09:03 BP 100/72 08/31/24 09:03 Pulse Ox 99 08/31/24 09:03 Oxygen Delivery Method Room Air 08/31/24 09:03 BMI result Body Mass Index 36.6 Assessment & Plan Assessment & Plan (1) Vaginal discharge: Code(s): N89.8 - Other specified noninflammatory disorders of vagina Plan: Plan - Prescribe fluconazole tablet, with instructions to take one today and repeat in three days if symptoms persist. - Recommend clotrimazole cream or Vagisil for external symptom relief. - Advise against using hydroxyzine concurrently with fluconazole. - Patient self swabbed Conrad Vag panel to confirm the diagnosis and adjust treatment as needed. Patient was informed and verbally consented to the use of an ambient scribe for clinic note documentation during this visit Orders: Orders Bacterial Vaginosis Panel Today N89.8 - Other specified noninflammatory disorders of vagina Medications: New fluconazole may repeat second dose 72 hrs after first dose if symptoms persist 150 mg PO Q3D 2 tabs 0RF Coding Level of Care Code Est Pt Level 4 (46697) Diagnoses Vaginal discharge N89.8
[2024-08-31 09:03] VITALS: BP 100/72; PULSE 92; TEMP 36.9; O2SAT 99; BMI 36.6
--- OUTSIDE RECORDS SUMMARY | 2024-08-31 09:26 | XMS_ITS | Clinical Summary ---
Author Organization [facility] ity Address [address] [place] [address] Care Team Providers Care Varnish Supervisor Name Role Phone Unavailable Primary Care Provider [...] Vaccine (2023-2 5 season) 2023 Influenza Vaccine (Season Ended) 2024 HIB Vaccines Aged Out No longer eligi [...] age to complete this topic Meningococcal B Vaccine Aged Out No l onger eligible based on patient's age to complete [...]
== END 2024-08-31 09:39 | disposition home or self-care (01) ==
PROVIDERS: PCP Internal Medicine; Visit Provider Physician Assistant
DX: N89.8 Other specified noninflammatory disorders of vagina (principal)

== ENCOUNTER 2024-08-31 08:57 | Outpatient (REF) | payer OTHER, SELFPAY ==
[2024-08-31 14:55] LABS: Bacterial Vaginosis PCR POSITIVE (Negative); Candida Group PCR DETECTED (Not Detect); Candida glab krusei PCR NOT DETECTED (Not Detect); Trichomonas vaginalis PCR NOT DETECTED (Not Detect)
== END 2024-08-31 08:58 | disposition home or self-care (01) ==
LOC: HO.LAB 08:57
PROVIDERS: Physician Assistant; PCP Internal Medicine
DX: N89.8 Other specified noninflammatory disorders of vagina (principal)
CPT/HCPCS: 81515; 99212

== ENCOUNTER 2024-09-11 13:06 | Outpatient (AMB) | payer OTHER, SELFPAY ==
[2024-09-11 13:21] VITALS: BP 92/60; PULSE 64; TEMP 36.9; O2SAT 95; BMI 36.4
--- NOTE | 2024-09-11 13:21 | MHC.OFFWIV ---
Intake Vital Signs 09/11/24 13:21 Height 5 ft 4 in Weight 212 lb 2 oz BMI 36.4 BP 92/60 Blood Pressure Location Rt brachial Position Sitting Pulse 64 Pulse Source Pulse Oximeter Temp 98.5 F Temp Source Oral Pulse Oximetry (%) 95 Oxygen Delivery Method Room Air Intake Visit Reasons: EP cold Intake Note: Patient presents with eye pressure, post nasal drip, states her throat is very dry in the morning. Has a cough that is productive, clear thick mucous. Cold sx times 1 week Patient Tobacco Use Status: Former Tobacco user National Secretary Required: No Is last menstrual period known: Yes Post menopausal: No Patient : No Allergies sertraline Adverse Reaction (Intermediate, Verified 09/11/24 13:30) suicidal ideation sulfamethoxazole (From Bactrim) Adverse Reaction (Intermediate, Verified 09/11/24 13:30) yeast infection trimethoprim (From Bactrim) Adverse Reaction (Intermediate, Verified 09/11/24 13:30) yeast infection Do you need a note to return to daycare/school/sports/work: Yes HPI HPI Comments History of Present Illness Details History - The patient is a 39-year-old female presenting with symptoms of upper respiratory infection and allergic rhinitis. - Reports feeling overworked and unwell, with symptoms resembling a head cold affecting the neck and head, accompanied by a dry cough and sore throat. - Symptoms have persisted for several weeks, with a significant exacerbation two days prior to the visit. - History of seasonal allergies but does not take regular allergy medication. - Reports itchy eyes and ears. - Has been using Mucinex to manage her symptoms, with no other medications reported. - Denies fevers, shortness of breath, sinus pain or wheezing. Physical Exam General: Cooperative, healthy appearing, comfortable and no acute distress Orientation/consciousness: Patient oriented x3 Limitations: No limitations Head: Normal to inspection Ears: Hearing grossly normal bilaterally, external ears normal and TM's a little bit red bilaterally Nose: Normal external nose present, Normal nares present and No nasal discharge present Face and sinus: Normal facial exam and Yes sinuses nontender Mouth: Normal oral and palatal mucosa present and moist mucous membranes Throat: Yes tonsils normal, Yes uvula midline. Posterior oropharynx erythema, no exudates Eyes: Appearance normal, both eyes and all related structures Neck: Normal visual inspection, full ROM Respiratory: Clear to auscultation bilaterally. Normal respiratory effort, able to speak in complete sentences, Actively coughing, no respiratory distress, not tachypneic, no tripod positioning and no use of accessory muscles Cardiovascular: Regular rate and rhythm. 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 Surgical History Hx of cystoscopy Family History Father CKD (chronic kidney disease) Mother CHF (congestive heart failure) Coronary artery disease Social History Household Members: Spouse and Children [facility] Do you presently have visiting nurse or other home services: No Alcohol intake: never Patient Tobacco Use Status: Former Tobacco user Tobacco use type: Cigarette Cigarettes Per Day: 3 e-Cigarette/Vaping Use: Never Used Second Hand Smoke Exposure: Yes Substance Use Type: Marijuana Advance Directives Date on File: 06/06/21 Patient : No service: No Current occupational status: employed 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 - Continue Mucinex for symptomatic relief. - Initiate daily allergy medication to address allergic rhinitis. - Perform diagnostic testing for influenza, COVID-19, and RSV to rule out viral infections. - Prescribe Tessalon Perles for cough suppression, particularly at night to aid sleep. - Recommend rest and hydration to support recovery. - Provide a work note to facilitate time off for recovery. Patient was informed and verbally consented to the use of an ambient scribe for clinic note documentation during this visit Orders: Orders SARS-CoV2/FLU/RSV Today R09.89 - Other specified symptoms and signs involving the circulatory and respiratory systems Medications: New benzonatate 200 mg PO BEDTIME PRN 10 caps 0RF cough Coding Level of Care Code Est Pt Level 3 (24238) Diagnoses URI, acute J06.9
--- OUTSIDE RECORDS SUMMARY | 2024-09-11 13:39 | XMS_ITS | Clinical Summary ---
Author Organization [facility] ity Address [address] [place] [address] Care Team Providers Care Office Services Associate Name Role Phone Unavailable Primary Care Provider [...]
== END 2024-09-11 13:46 | disposition home or self-care (01) ==
PROVIDERS: PCP Internal Medicine; Visit Provider Physician Assistant
DX: J06.9 Acute upper respiratory infection, unspecified (principal)

== ENCOUNTER 2024-09-11 13:06 | Outpatient (REF) | payer OTHER, SELFPAY ==
[2024-09-11 17:39] LABS: Influenza A PCR NEGATIVE (Negative); Influenza B PCR NEGATIVE (Negative); Resp Syncy Virus RNA Qual PCR NEGATIVE (Negative); SARS COV2 PCR INHOUSE NEGATIVE (Negative)
== END 2024-09-11 13:07 | disposition home or self-care (01) ==
LOC: HO.LAB 13:06
PROVIDERS: Physician Assistant; PCP Internal Medicine
DX: J06.9 Acute upper respiratory infection, unspecified (principal); R09.89 Other specified symptoms and signs involving the circulatory and respiratory systems
CPT/HCPCS: 0241U; 99212

== ENCOUNTER 2024-09-25 15:32 | Outpatient (AMB) | payer OTHER, SELFPAY ==
--- OUTSIDE RECORDS SUMMARY | 2024-09-25 15:34 | XMS_ITS | Clinical Summary ---
Author Organization [facility] ity Address [address] [place] [address] Care Team Providers Care Education Manager Name Role Phone Unavailable Primary Care Provider [...] (2023-2 5 season) 2023 Influenza Vaccine (#1) 2024 HIB Vaccines Aged Out No longer [...] 5 Years) and At-Risk Patients (6 to 49 Years) Aged Out No longer eligible b ased on patient's age to complete this topic RSV Immunization Patients Un arjun 20 months Aged Out No longer eligible b ased on patient's age to complete this topic Varicella Vaccines Aged Out No longer eligible based on patient's age to complete this topic
[2024-09-25 15:35] VITALS: BP 102/58; PULSE 87; TEMP 37.2; O2SAT 99; BMI 36.9
--- NOTE | 2024-09-25 15:35 | MHC.OFFWIV ---
Intake Vital Signs 09/25/24 15:35 Height 5 ft 4 in Weight 215 lb BMI 36.9 BP 102/58 L Blood Pressure Location Rt brachial Position Sitting Pulse 87 Pulse Source Pulse Oximeter Temp 99.0 F Temp Source Oral Pulse Oximetry (%) 99 Oxygen Delivery Method Room Air Intake Visit Reasons: EP Stomach concern Intake Note: presents with stomach tightness, nauseous Patient Tobacco Use Status: Former Tobacco user Allergies sertraline Adverse Reaction (Intermediate, Verified 09/25/24 15:37) suicidal ideation sulfamethoxazole (From Bactrim) Adverse Reaction (Intermediate, Verified 09/25/24 15:37) yeast infection trimethoprim (From Bactrim) Adverse Reaction (Intermediate, Verified 09/25/24 15:37) yeast infection Do you need a note to return to daycare/school/sports/work: Yes Return to daycare/school/sports/work/other note: work HPI HPI Comments History of Present Illness Details This is a 39 year old female with a past medical history of lactose intolerance and anxiety presenting for evaluation of nausea and abdominal discomfort. Patient states that she drank a smoothie containing dates, oat milk and granola prior to going to work this afternoon. Patient states when she arrived at work she noticed that she was burping and passing flatus. Patient states that she has had smoothies from this shop before, however never before with these ingredients. Patient reports mild nausea without vomiting. Her last bowel movement was today and was of normal caliber. Patient denies having any previous surgical history, dysuria, urinary frequency, fevers or chills. Her last normal menstrual period was 2 weeks ago. 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 Surgical History Hx of cystoscopy Family History Father CKD (chronic kidney disease) Mother CHF (congestive heart failure) Coronary artery disease Social History Household Members: Spouse and Children Housing: Condominium Do you presently have visiting nurse or other home services: No Alcohol intake: never Patient Tobacco Use Status: Former Tobacco user Tobacco use type: Cigarette Cigarettes Per Day: 3 e-Cigarette/Vaping Use: Never Used Second Hand Smoke Exposure: Yes Substance Use Type: Marijuana Advance Directives Date on File: 06/06/21 service: No Current occupational status: employed Current occupation: [employer] Current occupational exposures/hazards: No Cognitive needs: No Hearing needs: No Vision needs: Yes (glasses) Review of Systems Const All systems reviewed & are unremarkable except as noted in HPI and below Reports as per HPI, Denies chills, Denies fatigue and Denies fever(s) Card Reports no additional complaints, Denies chest pain and Denies dyspnea Resp Reports no additional complaints and Denies dyspnea GI Reports belching, Reports bloating, Denies change in stool character, Denies constipation, Denies GI cramping, Reports excessive flatus, Reports nausea and Denies vomiting Reports no additional complaints, Denies dysuria and Denies urinary urgency Musc Reports no additional complaints Skin/Breast Reports system reviewed and no additional complaints, except as documented Neuro Reports no additional complaints Psych Reports no additional complaints Endo Reports no additional complaints and Denies fatigue Physical Exam Vital Signs: BMI result Body Mass Index 36.9 Const General: cooperative, healthy appearing, comfortable, no acute distress and well developed; No diaphoretic or ill appearing Nutritional Appearance: well nourished Orientation/consciousness: patient oriented x3 Limitations: no limitations Resp Effort & Inspection: normal respiratory effort and able to speak in complete sentences Auscultation: clear to auscultation bilaterally Cardio Rate: regular rate Rhythm: regular rhythm GI Inspection: Yes normal to inspection Palpation (GI): Soft to palpation, nontender, no guarding and not rigid Percussion: Yes normal to percussion Auscultation: normal bowel sounds General: Yes Bimanual renal exam normal bilaterally, Yes bladder normal to inspection, Yes bladder normal to palpation and Yes no CVA tenderness Bimanual exam- vagina & uterus: bladder normal to palpation Back/Spine/Pelvis Back: no CVA tenderness Skin General skin exam: no rashes or lesions noted Neuro General: patient oriented x3 Psych Appearance: grossly normal Mental Status: mental status grossly normal Insight: Good insight present (Psych) Judgement: Good judgement present (Psych) Results AMB Test Urine AMB Test Urine Negative Last Edit by Keiry Guajardo MA on 09/25/24 16:07 AMB Urinalysis, Automated UA Leukoctes 0 Amanda/uL Last Edit by Keiry Guajardo MA on 09/25/24 16:08 UA Nitrite Negative Last Edit by Keiry Guajardo MA on 09/25/24 16:08 UA Urobilinogen 0.2 mg/dL Last Edit by Keiry Guajardo MA on 09/25/24 16:08 UA Protein 0 mg/dL Last Edit by Keiry Guajardo MA on 09/25/24 16:08 UA pH 7.0 Last Edit by Keiry Guajardo MA on 09/25/24 16:08 UA Blood 0 Dominguez/uL Last Edit by Keiry Guajardo MA on 09/25/24 16:08 UA Specific [place] 1.015 Last Edit by Keiry Guajardo MA on 09/25/24 16:08 UA Ketone Negative Last Edit by Keiry Guajardo MA on 09/25/24 16:08 UA Bilirubin 0 mg/dL Last Edit by Keiry Guajardo MA on 09/25/24 16:08 UA Glucose 0 mg/dL Last Edit by Keiry Guajardo MA on 09/25/24 16:08 Results Reviewed Results Reviewed: Urine hCG is negative, urinalysis is reviewed. Assessment & Plan Assessment & Plan (1) Abdominal discomfort: Comment: Patient believes that she may have been given whole milk as opposed to oat milk in her smoothie. Patient's urinalysis is reviewed. Patient has no overt abdominal pain on clinical examination. Patient is declining medication for nausea at this time. Patient will be discharged home. Code(s): R10.9 - Unspecified abdominal pain Plan: Increase clear fluids as tolerated, bland diet x24 hours, return only as needed. Orders: Orders AMB Urinalysis Automated Today Z13.9 - Encounter for screening, unspecified AMB HCG Urine Test Today Z13.9 - Encounter for screening, unspecified Coding Level of Care Code Est Pt Level 3 (16268) Diagnoses Abdominal discomfort R10.9 Time Spent (min) 20
== END 2024-09-25 16:22 | disposition home or self-care (01) ==
PROVIDERS: PCP Internal Medicine; Visit Provider Physician Assistant
DX: R10.9 Unspecified abdominal pain (principal); Z13.9 Encounter for screening, unspecified

== ENCOUNTER → 2024-09-25 15:32 | Outpatient (BNVA) | payer OTHER, SELFPAY | PROVIDERS: PCP Internal Medicine; Visit Provider Physician Assistant | DX: R10.9 Unspecified abdominal pain (principal) | CPT/HCPCS: 81003; 81025; 99212 ==

== ENCOUNTER 2024-10-01 09:39 | Outpatient (AMB) | payer OTHER, SELFPAY ==
[2024-10-01 09:45] VITALS: BP 114/68; PULSE 68; TEMP 36.8; O2SAT 97; BMI 36.6
--- NOTE | 2024-10-01 09:45 | MHC.OFFWIV ---
Intake Vital Signs 10/01/24 09:45 Height 5 ft 4 in Weight 213 lb 4 oz BMI 36.6 BP 114/68 Blood Pressure Location Rt brachial Position Sitting Pulse 68 Pulse Source Pulse Oximeter Temp 98.2 F Temp Source Oral Pulse Oximetry (%) 97 Oxygen Delivery Method Room Air Intake Visit Reasons: EP-yeast infection Intake Note: Patient presents with itching, burn and a small amount of discharge times 4 days Patient Tobacco Use Status: Former Tobacco user Allergies sertraline Adverse Reaction (Intermediate, Verified 09/25/24 15:37) suicidal ideation sulfamethoxazole (From Bactrim) Adverse Reaction (Intermediate, Verified 09/25/24 15:37) yeast infection trimethoprim (From Bactrim) Adverse Reaction (Intermediate, Verified 09/25/24 15:37) yeast infection HPI EP-yeast infection HPI Details This is a 39-year-old female patient who presents to the walk-in clinic today with possible yeast infection, and vaginal irritation/itching. She states that she recently had BV, and completed antibiotic course for this yesterday. She has been having some weight, somewhat chunky discharge as well as itching/irritation of her vagina/labia. Also, she had intercourse yesterday which exacerbated the irritation. States that she is a habitual condom user, and has same male partner. No concern for STI. No urinary symptoms. 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 Surgical History Hx of cystoscopy Family History Father CKD (chronic kidney disease) Mother CHF (congestive heart failure) Coronary artery disease Social History Household Members: Spouse and Children Housing: Condominium Do you presently have visiting nurse or other home services: No Alcohol intake: never Patient Tobacco Use Status: Former Tobacco user Tobacco use type: Cigarette Cigarettes Per Day: 3 e-Cigarette/Vaping Use: Never Used Second Hand Smoke Exposure: Yes Substance Use Type: Marijuana Advance Directives Date on File: 06/06/21 service: No Current occupational status: employed 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 Current occupational exposures/hazards: No Cognitive needs: No Hearing needs: No Vision needs: Yes (glasses) Review of Systems Const All systems reviewed & are unremarkable except as noted in HPI and below Physical Exam Vital Signs: Last Vital Signs Temp 98.2 F 10/01/24 09:45 Pulse 68 10/01/24 09:45 BP 114/68 10/01/24 09:45 Pulse Ox 97 10/01/24 09:45 Oxygen Delivery Method Room Air 10/01/24 09:45 BMI result Body Mass Index 36.6 Const General: cooperative, healthy appearing and no acute distress Resp Effort & Inspection: normal respiratory effort Cardio Rate: regular rate Rhythm: regular rhythm Other: deferred - patient self-swabbed General: Yes bladder normal to palpation and Yes no CVA tenderness Bimanual exam- vagina & uterus: bladder normal to palpation Back/Spine/Pelvis Back: no CVA tenderness Skin General skin exam: no rashes or lesions noted Extrem General: Yes no clubbing, cyanosis or edema Psych Appearance: grossly normal Mental Status: mental status grossly normal Speech and movement: Normal speech and movement present Assessment & Plan Assessment & Plan (1) Candidiasis of vagina: Code(s): B37.31 - Acute candidiasis of vulva and vagina Plan: BV panel obtained. Likely yeast r/t recent abx treatment. Prescribed Fluxonazole PO as well as a clotrimazole cream for external use for the vaginal itching. Patient aware she will be notified of results of panel once available. Advised abstaining from intercourse until symptoms have resolved, and also a water-based lubricant to avoid irritation. All questions were answered and patient verbalizes understanding and agrees to plan. She will return to the clinic if she does not improve with treatment. Orders: Orders Bacterial Vaginosis Panel Today N89.8 - Other specified noninflammatory disorders of vagina Medications: New clotrimazole 1% 1 appful vaginal BEDTIME 45 grams 0RF fluconazole may repeat second dose 72 hrs after first dose if symptoms persist 150 mg PO Q3D 2 tabs 0RF 2 doses B37.31 - Acute candidiasis of vulva and vagina Coding Level of Care Code Est Pt Level 4 (66495) Diagnoses Candidiasis of vagina B37.31
--- OUTSIDE RECORDS SUMMARY | 2024-10-01 09:56 | XMS_ITS | Clinical Summary ---
Author Organization [facility] ity Address [address] [place] [address] Care Team Providers Care Engineering Mathematician Name Role Phone Unavailable Primary Care Provider [...]
== END 2024-10-01 10:59 | disposition home or self-care (01) ==
PROVIDERS: PCP Internal Medicine; Visit Provider Nurse Practitioner Family
DX: B37.31 Acute candidiasis of vulva and vagina (principal)

== ENCOUNTER 2024-10-01 09:39 | Outpatient (REF) | payer OTHER, SELFPAY ==
[2024-10-01 14:54] LABS: Bacterial Vaginosis PCR NEGATIVE (Negative); Candida Group PCR DETECTED (Not Detect); Candida glab krusei PCR NOT DETECTED (Not Detect); Trichomonas vaginalis PCR NOT DETECTED (Not Detect)
== END 2024-10-01 09:40 | disposition home or self-care (01) ==
LOC: HO.LAB 09:39
PROVIDERS: PCP Internal Medicine; Visit Provider Nurse Practitioner Family
DX: B37.31 Acute candidiasis of vulva and vagina (principal); N89.8 Other specified noninflammatory disorders of vagina
CPT/HCPCS: 81515; 99212

== ENCOUNTER 2024-11-20 12:32 | Outpatient (REF) | payer OTHER, SELFPAY ==
[2024-11-21 09:43] LABS: Chlamydia pneumoniae PCR Not Detected (Not Detect.); Coronavirus 229E PCR Not Detected (Not Detect.); Coronavirus HKU1 PCR Not Detected (Not Detect.); Coronavirus NL63 PCR Not Detected (Not Detect.); Coronavirus OC43 PCR Not Detected (Not Detect.); RSV PCR Not Detected (Not Detect.); Rhino/Enterovirus PCR Detected (Not Detect.)
[2024-11-21 09:52] LABS: Influenza A H1 PCR Not Detected (Not Detect.); Influenza A H1-2009 PCR Not Detected (Not Detect.); Influenza A H3 PCR Not Detected (Not Detect.); SARS-CoV-2 PCR Not Detected (Not Detect.)
== END 2024-11-20 12:33 | disposition home or self-care (01) ==
LOC: HO.LAB 12:32
PROVIDERS: PCP Internal Medicine; Visit Provider Physician Assistant
DX: J06.9 Acute upper respiratory infection, unspecified (principal); Z87.891 Personal history of nicotine dependence
CPT/HCPCS: 87633; 99212

== ENCOUNTER 2024-11-20 12:32 | Outpatient (AMB) | payer OTHER, SELFPAY ==
[2024-11-20 12:53] VITALS: BP 106/64; PULSE 86; TEMP 36.9; O2SAT 98; BMI 36.6
--- NOTE | 2024-11-20 12:53 | AM.OFFWIN_ITS ---
Intake Vital Signs 11/20/24 12:53 Height 5 ft 4 in Weight 213 lb BMI 36.6 BP 106/64 Blood Pressure Location Lt brachial Position Sitting Pulse 86 Pulse Source Pulse Oximeter Temp 98.5 F Temp Source Oral Pulse Oximetry (%) 98 Oxygen Delivery Method Room Air Intake Visit Reasons: EP cough, clamy, chest burning congestion Intake Note: pt presents with chest congestion with productive cough and burning sensation, cold sweats Patient Tobacco Use Status: Former Tobacco user Allergies Milk Containing Products (Dairy) Allergy (Intermediate, Verified 11/20/24 12:59) Diarrhea sertraline Adverse Reaction (Intermediate, Verified 09/25/24 15:37) suicidal ideation sulfamethoxazole (From Bactrim) Adverse Reaction (Intermediate, Verified 09/25/24 15:37) yeast infection trimethoprim (From Bactrim) Adverse Reaction (Intermediate, Verified 09/25/24 15:37) yeast infection Do you need a note to return to daycare/school/sports/work: Yes HPI HPI Comments History of Present Illness Details History - The patient is a 39-year-old female pr esenting with two days of cough, feeling cold, chills and a clammy feeling. - Reports chest congestion, burning sens ation in the chest, and sore throat treated with vitamin C and Mucinex. - Wheezing described as rumbling in the chest, no history of asthma or COPD. - Denies smoking or vaping, occasional m arijuana smoking. - Insomnia due to coughing, affecting sl eep until 4:00 AM. - No fever, reports clammy feeling. - No home COVID-19 testing, son's test w ho is also sick with similar symptoms was negative. Physical Exam General: Cooperative, healthy appearing, comfortable and no acute distress Orientation/consciousness: Patient oriented x3 Limitations: No limitations Head: Normal to inspection Ears: Hearing grossly normal bilaterally, external ears normal and TM's normal bilaterally Nose: Normal external nose present, Normal nares present and No nasal discharge present Face and sinus: Normal facial exam and Yes sinuses nontender Mouth: Normal oral and palatal mucosa present and moist mucous membranes Throat: Yes tonsils normal, Yes uvula midline. Posterior oropharynx erythema, no exudates Eyes: Appearance normal, both eyes and all related structures Neck: Normal visual inspection, full ROM Respiratory: Clear to auscultation bilaterally. Normal respiratory effort, able to speak in complete sentences, Actively coughing, no respiratory distress, not tachypneic, no tripod positioning and no use of accessory muscles Cardiovascular: Regular rate and rhythm. 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 Surgical History Hx of cystoscopy Family History Father CKD (chronic kidney disease) Mother CHF (congestive heart failure) Coronary artery disease Social History Household Members: Spouse and Children Housing: [facility] Do you presently have visiting nurse or other home services: No Alcohol intake: never Patient Tobacco Use Status: Former Tobacco user Tobacco use type: Cigarette Cigarettes Per Day: 3 e-Cigarette/Vaping Use: Never Used Second Hand Smoke Exposure: Yes Substance Use Type: Marijuana Advance Directives Date on File: 06/06/21 service: No Current occupational status: employed 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 Current occupational exposures/hazards: No Cognitive needs: No Hearing needs: No Vision needs: Yes (glasses) Review of Systems Const All systems reviewed & are unremarkable except as noted in HPI and below Physical Exam Vital Signs: Last Vital Signs Temp 98.5 F 11/20/24 12:53 Pulse 86 11/20/24 12:53 BP 106/64 11/20/24 12:53 Pulse Ox 98 11/20/24 12:53 Oxygen Delivery Method Room Air 11/20/24 12:53 BMI result Body Mass Index 36.6 Assessment & Plan Assessment & Plan (1) URI, acute: Code(s): J06.9 - Acute upper respiratory infection, unspecified Plan: Plan Patient was informed and verbally consented to the use of an ambient scribe for clinic note documentation during this visit. Viral Upper Respiratory Infection - Continue Mucinex for symptomatic relief. - Consider adding an antihistamine for drying effect. - Use saline nasal spray as needed. - Prescribed Tessalon Perles for cough suppression, especially at night to aid sleep. - Suggested Benadryl for additional sleep aid due to its sedative properties. - Await results from the respiratory panel test sent to the hospital. Orders: Orders Resp Pathogen Panel - [facility] Today J06.9 - Acute upper respiratory infection, unspecified Medications: New benzonatate 200 mg PO BEDTIME PRN 10 caps 0RF cough Coding Level of Care Code Est Pt Level 3 (59892) Diagnoses URI, acute J06.9
--- OUTSIDE RECORDS SUMMARY | 2024-11-20 12:53 | XMS_ITS | Clinical Summary ---
Author Organization [facility] ity Address [address] [place] [address] Care Team Providers Care Seed Tester Name Role Phone Unavailable Primary Care Provider [...] Cervical Cancer Screening: P ap Smear 05/26/2007 Depression Screening 03/18/2024 COVID-19 Vaccine (1 - 2023-2 5 season) 2024 Influenza Vaccine (#1) 2024 HIB Vaccines Aged [...]
== END 2024-11-20 13:32 | disposition home or self-care (01) ==
PROVIDERS: PCP Internal Medicine; Visit Provider Physician Assistant
DX: J06.9 Acute upper respiratory infection, unspecified (principal)

== ENCOUNTER 2024-12-14 15:19 | Outpatient (AMB) | payer OTHER, SELFPAY ==
[2024-12-14 15:31] VITALS: BP 104/60; PULSE 96; RESP 18; TEMP 38.2; O2SAT 96; BMI 34.7
--- NOTE | 2024-12-14 15:31 | A.OFFPC_ITS ---
Vital Signs 12/14/24 15:31 Height 5 ft 4 in Weight 202 lb 6 oz BMI 34.7 BP 104/60 Blood Pressure Location Rt brachial Position Sitting Respiration 18 Pulse 96 Pulse Source Pulse Oximeter Temp 100.7 F H Temp Source Temporal Artery Scan Pulse Oximetry (%) 96 Oxygen Delivery Method Room Air Intake Visit Reasons: sore throat/white spots on tonsils Marketing Project Specialist Required: No Accompanied by: Self / Same As Patient Allergies Milk Containing Products (Dairy) Allergy (Intermediate, Verified 12/14/24 15:32) Diarrhea sertraline Adverse Reaction (Intermediate, Verified 12/14/24 15:32) suicidal ideation sulfamethoxazole (From Bactrim) Adverse Reaction (Intermediate, Verified 12/14/24 15:32) yeast infection trimethoprim (From Bactrim) Adverse Reaction (Intermediate, Verified 12/14/24 15:32) yeast infection Tobacco use date assessed: 12/14/24 Dental Screening Dental Screen Date: 12/14/24 Did you have a dental visit in the last 12 months?: Yes Did you have a dental problem in the last 6 months where you did not have access to dental care?: No Was dental information given to patient?: Patient has dentist HPI HPI Comments History of Present Illness Details The patient is a 39-year-old female presenting with symptoms of acute tonsillitis. She reports that her tonsils became extremely swollen with white specks, accompanied by fever and significant mucus production. The patient has been unable to swallow or consume food and liquids for the past 48 hours, only managing small sips of water. The symptoms began suddenly yesterday with a mild itch in the throat, which rap idly progressed to severe swelling of the tonsils. She also reports experiencing chills along with the fever. No medications have been effective in alleviating her symptoms thus far. 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 Surgical History Hx of cystoscopy Family History Father CKD (chronic kidney disease) Mother CHF (congestive heart failure) Coronary artery disease Social History Household Members: Spouse and Children Housing: Condominium Do you presently have visiting nurse or other home services: No Alcohol intake: never Patient Tobacco Use Status: Former Tobacco user Tobacco use type: Cigarette Cigarettes Per Day: 3 e-Cigarette/Vaping Use: Never Used Second Hand Smoke Exposure: Yes Substance Use Type: Marijuana Advance Directives Date on File: 06/06/21 service: No Current occupational status: employed 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 1. Little interest or pleasure in doing things: more than half the days 2. Feeling down, depressed, or hopeless: not at all 3. Trouble falling or staying asleep, or sleeping too much: several days 4. Feeling tired or having little energy: several days 5. Poor appetite or overeating: several days 6. Feeling bad about yourself - or that you are a failure or have let yourself or your family down: not at all 7. Trouble concentrating on things, such as reading the newspaper or watching television: not at all 8. Moving or speaking so slowly that other people could have noticed. Or the opposite - being so fidgety or restless that you have been moving around a lot more than usual: several days 9. Thoughts that you would be better off or of hurting yourself in some way: not at all Total score: 6 Source: Developed by Drs. Juan Fry, Carley Penn, Wesley Hurd and colleagues, with an educational karen from [employer]. Thrive Questionnaire Date Thrive assessed: 12/14/24 I am a: Patient What is your living situation today?: I have a steady place to live Within the past 12 months, did the food you bought not last and you didn't have the money to get more?: I choose not to answer this question Within the past 12 months, did you worry whether your food would run out before you got money to buy more?: I choose not to answer this question Do you have trouble paying for medicines?: No Do you have trouble getting transportation to medical appointments?: No Do you have trouble paying your heating and electricity bill?: Yes Do you have trouble taking care of your child, family member or friend?: No Do you have trouble with day-to-day activities such as bathing, preparing meals, shopping, managing finances, etc.?: No Are you currently unemployed and looking for a job?: No Are you interested in more education?: No Please select the resources that you would like help with: None Currently or been in a relationship where the following occur: I choose not to answer THRIVE Score: 1 AUDIT C Alcohol Use Questionnaire (AUDIT-C) 2. How many drinks containing alcohol do you have on a typical day when you are drinking?: 1 or 2 Total Score: 0 DEMETRIS-7 AMB Questionnaire DEMETRIS-7 Date DEMETRIS - 7 assessed: 07/22/23 Feeling nervous, anxious, or on edge: 0 = Not at all Not being able to stop or control worryin = Not at all Worrying too much about different things: 0 = Not at all Trouble relaxin = Not at all Being so restless that it is hard to sit still: 0 = Not at all Becoming easily annoyed or irritable: 0 = Not at all Feeling afraid as if something awful might happen: 0 = Not at all Total DEMETRIS-7 score (0-4 normal; 5-9 mild; 10-14 moderate; 15-21 severe): 0 Source: Developed by Drs. Juan Fry, Carley Penn, Wesley Hurd and colleagues, with an educational karen from [employer]. Review of Systems Const Details: Positives besides what was mentioned in HPI are in BOLD Constitutional: No Weight Change, No Fever, No Chills, No Night Sweats, No Fatigue, No Malaise ENT/Mouth: No Hearing Changes, No Ear Pain, No Nasal Congestion, No Sinus Pain, No Hoarseness, No sore throat, No Rhinorrhea, No Swallowing Difficulty Eyes: No Eye Pain, No Swelling, No Redness, No Foreign Body, No Discharge, No Vision Changes Cardiovascular: No Chest Pain, No SOB, No PND, No Dyspnea on Exertion, No Orthopnea, No Claudication, No Edema, No Palpitations Respiratory: No Cough, No Sputum, No Wheezing, No Smoke Exposure, No Dyspnea Gastrointestinal: No Nausea, No Vomiting, No Diarrhea, No Constipation, No Pain, No Heartburn, No Anorexia, No Dysphagia, No Hematochezia, No Melena, No Flatulence, No Jaundice Genitourinary: No Dysmenorrhea, No DUB, No Dyspareunia, No Dysuria, No Urinary Frequency, No Hematuria, No Urinary Incontinence, No Urgency, No Flank Pain, No Urinary Flow Changes, No Hesitancy Musculoskeletal: No Arthralgias, No Myalgias, No Joint Swelling, No Joint Stiffness, No Back Pain, No Neck Pain, No Injury History Skin: No Skin Lesions, No Pruritis, No Hair Changes, No Breast/Skin Changes, N o Nipple Discharge Neuro: No Weakness, No Numbness, No Paresthesias, No Loss of Consciousness, No Syncope, No Dizziness, No Headache, No Coordination Changes, No Recent Falls Psych: No Anxiety/Panic, No Depression, No Insomnia, No Personality Changes, No Delusions, No Rumination, No SI/HI/AH/VH, No Social Issues, No Memory Changes, No Violence/Abuse Hx., No Eating Concerns Heme/Lymph: No Bruising, No Bleeding, No Transfusions History, No Lymphadenopathy Endocrine: No Polyuria, No Polydipsia, No Temperature Intolerance Physical exam (Primary Care) Vital Signs: Last Vital Signs Temp 100.7 F H 12/14/24 15:31 Pulse 96 12/14/24 15:31 Resp 18 12/14/24 15:31 BP 104/60 12/14/24 15:31 Pulse Ox 96 12/14/24 15:31 Oxygen Delivery Method Room Air 12/14/24 15:31 BMI result Body Mass Index 34.7 Tobacco/Smoking Status: Tobacco use Status Tobacco use date assessed 12/14/24 12/14/24 15:43 Patient Tobacco Use Status Former Tobacco user 12/14/24 15:43 Tobacco use type Cigarette 12/14/24 15:43 e-Cigarette/Vaping Use Never Used 12/14/24 15:43 PHQ-9: PHQ-9 Score PHQ-9: Total score 6 12/14/24 15:55 Thrive Assessment: Date of Thrive Assessment Date Thrive assessed 12/14/24 12/14/24 15:43 Currently or been in a relationship where the following occur: I choose not to answer Const Other: Pertinent findings are in BOLD GENERAL APPEARANCE NAD, activity normal for age, well developed/ well nourished, no cyanosis, pallor, or diaphoresis. EYES lids/conjunctiva normal. EARS/NOSE/THROAT Mucous membranes moist, nares normal, lips/teeth normal uvula midline without oral pharyngeal erythema, exudate or swelling TMs normal bilaterally. No lymphangitis/lymphedema. HEAD/NECK tender LN, tonsilar exudate and erythema. RESPIRATORY respiratory effort normal, speaks in full sentences, no tripod position, no accessory muscle use. Lungs clear to auscultation without rhonchi, wheezes, rales CARDIAC Regular rate and rhythm, no edema. ABDOMINAL Soft, ND/NT. No evidence of fluid wave. No pulsatile masses on exam, rebound tenderness, Clark sign or pain over Mcburney's point. MUSCLES/EXTREMITIES No abnormal range of motion, no swelling. SKIN Warm, pink and dry. No rashes, dermatoses, petechiae or lesions. NEUROLOGICAL Speech is clear and appropriate. Normal level of consciousness. Gait and coordination are normal. 5/5 strength in all extremities. PSYCH Normal mood and affect. Judgement/competence is appropriate Results AMB Rapid Strep AMB Rapid Strep Negative Last Edit by CLARENCE Gonzales on 12/14/24 1 6: 00 Coding Level of Care Code Tele Est Pt Level 4 (94521) Diagnoses Acute bacterial tonsillitis J03.80; B96.89 Time Spent (min) 30 Assessment & Plan Assessment & Plan (1) Acute bacterial tonsillitis: Code(s): J03.80 - Acute tonsillitis due to other specified organisms; B96.89 - Other specified bacterial agents as the cause of diseases classified elsewhere Category: Medical Plan: Rapid strep throat negative. - Prescribed Augmentin for 10 days, two times per day. - Recommended ibuprofen for inflammation and pain management. - Advised to attempt drinking and eating to ease inflammation. Plan I discussed with the patient that her symptoms are likely due to a bacterial infection, although the strep test was negative. I prescribed Augmentin to cover potential bacterial causes and recommended ibuprofen for inflammation. I advised her to try drinking and eating despite the discomfort to help reduce inflammation. Orders: Orders AMB Rapid Strep Screen Today Z13.9 - Encounter for screening, unspecified Medications: New amoxicillin-pot clavulanate 1,000-62.5 mg (Augmentin XR) 1 tab PO BID 20 tabs 0RF 10 days ibuprofen 200 mg PO Q6H PRN 30 caps 1RF pain
--- OUTSIDE RECORDS SUMMARY | 2024-12-14 17:22 | XMS_ITS | Clinical Summary ---
Author Organization [facility] ity Address [address] [place] [address] Care Team Providers Care Shaper Machine Hand Name Role Phone Unavailable Primary Care Provider [...]
== END 2024-12-14 15:58 | disposition home or self-care (01) ==
LOC: HO.HMCH 15:20
PROVIDERS: PCP Internal Medicine; Visit Provider Internal Medicine
DX: J03.80 Acute tonsillitis due to other specified organisms (principal); B96.89 Other specified bacterial agents as the cause of diseases classified elsewhere; Z13.9 Encounter for screening, unspecified

== ENCOUNTER → 2024-12-14 15:19 | Outpatient (BNVA) | payer OTHER, SELFPAY | PROVIDERS: PCP Internal Medicine; Visit Provider Internal Medicine | DX: J03.80 Acute tonsillitis due to other specified organisms (principal); B96.89 Other specified bacterial agents as the cause of diseases classified elsewhere; Z87.891 Personal history of nicotine dependence | CPT/HCPCS: 87880; 99212 ==